=== PATIENT | male | born 1970 | race Caucasian/White ===

== ENCOUNTER 2016-11-07 14:27 | Emergency (ER) | payer OTHER ==
[2016-11-07] MEDS ORDERED: Meclizine TAB* 12.5 MG PO ONE ×2 (15:10→15:11)
--- NOTE | 2016-11-07 15:18 | ED ---
Amilcar Chirinos Alok, scribed for Padilla Palencia MD on 11/07/16 at 1515 . Dizziness - HPI Summary HPI Summary: 46 y/o male presents to the ED for dizziness. Pt states that he has been experiencing dizziness spells for the past few months, usually lasting minutes. Today at approximately 1245 pt states that dizziness began while carrying groceries and has been constant since. Dizziness is described as a lightheadedness with diaphoresis, room-spinning and nausea, and is aggravated by movement/exertion and alleviated by rest. Pt adds having mild ear pain and weakness in the lower extremities. Pt denies any sinus congestion, JUAREZ, or rhinorrhea. Pt's only prescribed medication are his depression medications which he has not been taking recently. No other pertinent medical information at this time. - History Of Current Complaint Chief Complaint: EDDizziness Stated Complaint: CHEST PAIN,DIZZINESS Time Seen by Provider: 11/07/16 14:48 Hx Obtained From: Patient Onset/Duration: Still Present Timing: Minutes Severity Initially: Moderate Severity Currently: Moderate Character: Room Spinning, Lightheaded, Weak, Dizzy Aggravating Factor(s): Exertion Alleviating Factor(s): Rest Associated Signs And Symptoms: Positive: Nausea, Diaphoresis. Negative: Fever - Allergies/Home Medications Allergies/Adverse Reactions: Allergies Allergy/AdvReac Type Severity Reaction Status Date / Time Fentanyl Allergy Mild Hives Verified 07/12/16 19:38 Hydrocodone Allergy Mild GI Upset Verified 07/12/16 19:38 Oxycodone Allergy Nausea Verified 07/12/16 19:38 Morphine AdvReac Severe seizures Verified 07/12/16 19:38 Levofloxacin [From Levaquin] AdvReac Intermediate Swelling Verified 07/12/16 19: 38 bleach Allergy Difficulty Uncoded 07/12/16 19:38 Breathing PMH/Surg Hx/FS Hx/Imm Hx Endocrine/Hematology History: Reports: Hx Diabetes - "BORDERLINE" Denies: Hx Systemic Lupus Erythematosus, Hx Thyroid Disease Cardiovascular History: Denies: Hx Congestive Heart Failure, Hx Hypertension Respiratory History: Reports: Hx Sleep Apnea - NO CPAP D/T GERD Denies: Hx Asthma, Hx Chronic Obstructive Pulmonary Disease (COPD) GI History: Reports: Hx Gastroesophageal Reflux Disease - ON MEDS Denies: Hx Ulcer History: Denies: Hx Dialysis, Hx Renal Disease Musculoskeletal History: Reports: Hx Arthritis - BILAT ANKLES Denies: Hx Rheumatoid Arthritis Sensory History: Denies: Hx Contacts or Glasses, Hx Hearing Aid Opthamlomology History: Denies: Hx Contacts or Glasses Neurological History: Reports: Other Neuro Impairments/Disorders - ADD,ADHD. PAIN CLINIC PT. Psychiatric History: Reports: Hx Anxiety - NO MEDS - Cancer History Hx Chemotherapy: No - Surgical History Surgery Procedure, Year, and Place: Left knee surgery 1999. RIGHT CARPAL TUNNEL 2005 [facility]. hernia repair-06/01/14 [facility] Hx Anesthesia Reactions: No - Immunization History Date of Tetanus Vaccine: 1 week ago in ED Infectious Disease History: Yes Infectious Disease History: Denies: Hx Clostridium Difficile, Hx Hepatitis, Hx Human Immunodeficiency Virus (HIV), Hx of Known/Suspected MRSA, Hx Shingles, Hx Tuberculosis, Hx Known/ Suspected VRE, Hx Known/Suspected VRSA, History Other Infectious Disease, Traveled Outside the in Last 30 Days - Family History Known Family History: Positive: Cardiac Disease, Hypertension, Diabetes - Social History Occupation: Employed Full-time Lives: With Family - Significant Other (Female) Alcohol Use: None Substance Use Type: Reports: None Smoking Status (MU): Never Smoked Tobacco Have You Smoked in the Last Year: No Review of Systems Positive: Skin Diaphoresis. Negative: Fever Positive: Ear Ache - Mild Positive: Nausea Neurological: Other - Dizziness Positive: Weakness. Negative: Headache All Other Systems Reviewed And Are Negative: Yes Physical Exam Triage Information Reviewed: Yes Vital Signs On Initial Exam: Initial Vitals Temp Pulse Resp BP Pulse Ox 98.2 F 72 18 145/99 96 11/07/16 14:29 11/07/16 14:29 11/07/16 14:29 11/07/16 14:29 11/07/16 14:29 Vital Signs Reviewed: Yes Appearance: Positive: Well-Appearing, No Pain Distress Skin: Positive: Warm, Skin Color Reflects Adequate Perfusion, Dry Head/Face: Positive: Normal Head/Face Inspection Eyes: Positive: EOMI, LOUIS ENT: Positive: Normal ENT inspection, TMs normal Neck: Positive: Supple, Nontender Respiratory/Lung Sounds: Positive: Clear to Auscultation, Breath Sounds Present Cardiovascular: Positive: RRR Abdomen Description: Positive: Nontender, Soft Bowel Sounds: Positive: Present Musculoskeletal: Positive: Normal, Strength/ROM Intact Neurological: Positive: Normal, Sensory/Motor Intact, Alert, Oriented to Person Place, Time Psychiatric: Positive: Normal, Affect/Mood Appropriate Diagnostics - Vital Signs Vital Signs Temp Pulse Resp BP Pulse Ox 11/07/16 14:29 98.2 F 72 18 145/99 96 - Laboratory Lab Statement: Any lab studies that have been ordered have been reviewed, and results considered in the medical decision making process. Dizzy Course/Dx - Course Assessment/Plan: DISCUSSED LAB WORK/CT BRAIN. PATIENT DECLINED LAB WORK/CT BRAIN. RX MECLIZINE. DISCHARGE HOME STABLE. - Diagnoses Provider Diagnoses: Vertigo Discharge - Discharge Plan Condition: Stable Disposition: HOME Prescriptions: Meclizine HCl [Meclizine 25] 25 mg PO Q6HR PRN #15 tab PRN Reason: Vertigo Patient Education Materials: Vertigo (ED) Referrals: Andrzej Mcarthur MD [Primary Care Provider] - Additional Instructions: FOLLOW UP WITH YOUR DOCTOR. MECLIZINE 25MG EVERY 6 HOURS NEEDED FOR THE VERTIGO. RETURN TO THE EMERGENCY DEPARTMENT FOR ANY WORSENING OF YOUR CONDITION; WEAKNESS , NUMBNESS, YOU FEEL ILL OR QUESTIONS OR CONCERNS. The documentation as recorded by the Amilcar parker Alok accurately reflects the service I personally performed and the decisions made by me, Padilla Palencia MD.
[2016-11-07 15:29] VITALS: BP 127/87
== END 2016-11-07 15:27 | disposition home or self-care (01) ==
LOC: ED 14:27
DX: H92.09 Otalgia, unspecified ear (principal); R42 Dizziness and giddiness; R11.0 Nausea; R61 Generalized hyperhidrosis
CPT/HCPCS: 99282; A9270-GY

== ENCOUNTER 2017-01-27 10:57 | Emergency (ER) | payer OTHER ==
[2017-01-27 11:04] VITALS: BP 136/80
--- NOTE | 2017-01-27 12:18 | UC ---
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 Has been a patient in the pain clinic in the past and does not want to take pills every day. Steroid injections did not help. For the last few days has sharper pain, much more severe than normal, with pain in anterior thighs and feet. Denies saddle anesthesia or difficulty with urination , having normal erections. Does have difficulty passing stool, says it feels like his muscles give out and he has very hard stools. Long hx of constipation. - History of Current Complaint Chief Complaint: UCBackPain Stated Complaint: BACK/LEG PAIN Time Seen by Provider: 01/27/17 11:45 Hx Obtained From: Patient Onset/Duration: Lasting Days Timing: Constant Severity Initially: Moderate Severity Currently: Moderate Back Pain: Is Diffuse Character: Sharp, Aching, Burning Aggravating: Movement, Bending, Walking Alleviating: Rest Associated Signs And Symptoms: Negative: Numbness, Tingling - Allergies/Home Medications Allergies/Adverse Reactions: Allergies Allergy/AdvReac Type Severity Reaction Status Date / Time Fentanyl Allergy Mild Hives Verified 07/12/16 19:38 Hydrocodone Allergy Mild GI Upset Verified 07/12/16 19:38 Oxycodone Allergy Nausea Verified 07/12/16 19:38 Morphine AdvReac Severe seizures Verified 07/12/16 19:38 Levofloxacin [From Levaquin] AdvReac Intermediate Swelling Verified 07/12/16 19: 38 bleach Allergy Difficulty Uncoded 07/12/16 19:38 Breathing PMH/Surg Hx/FS Hx/Imm Hx Previously Healthy: Yes - Surgical History Surgical History: Yes Surgery Procedure, Year, and Place: Left knee surgery 1999. RIGHT CARPAL TUNNEL 2006 [facility] [place]. [place]-06/01/14 [facility] [place] - Family History Known Family History: Positive: Cardiac Disease, Hypertension, Diabetes - Social History Occupation: Employed Full-time Lives: With Family Alcohol Use: None Substance Use Type: None Smoking Status (MU): Never Smoked Tobacco Have You Smoked in the Last Year: No Household Exposure Type: Cigarettes - Immunization History Most Recent Influenza Vaccination: no Review of Systems Constitutional: Negative Skin: Negative Eyes: Negative ENT: Negative Respiratory: Negative Cardiovascular: Negative Gastrointestinal: Negative Genitourinary: Negative Motor: Negative Neurovascular: Negative Musculoskeletal: Decreased ROM - back Neurological: Negative Psychological: Negative All Other Systems Reviewed And Are Negative: Yes Physical Exam Triage Information Reviewed: Yes Appearance: Pain Distress - mod, Obese Vital Signs: Initial Vital Signs Temp 98.5 F 01/27/17 11:03 Pulse 78 01/27/17 11:03 Resp 16 01/27/17 11:03 BP 136/80 01/27/17 11:03 Pulse Ox 98 01/27/17 11:03 Vital Signs Reviewed: Yes Eye Exam: Normal Eyes: Positive: Conjunctiva Clear ENT Exam: Normal ENT: Positive: Normal ENT inspection, Hearing grossly normal, Pharynx normal, TMs normal Dental: Positive: Gross Decay/Caries @ Neck exam: Normal Respiratory Exam: Normal Respiratory: Positive: Chest non-tender, Lungs clear, Normal breath sounds, No respiratory distress, No accessory muscle use Cardiovascular Exam: Normal Cardiovascular: Positive: RRR, No Murmur Musculoskeletal: Positive: Strength Limited @ - poor effort in legs Neurological Exam: Other - DTRs 2+ BLE Psychological Exam: Normal Skin Exam: Normal Back Pain Course/Dx - Differential Dx/Diagnosis Provider Diagnoses: Acute on chronic low back pain Discharge - Discharge Plan Condition: Stable Disposition: HOME Prescriptions: Cyclobenzaprine TAB* [Flexeril TAB*] 10 mg PO TID PRN #15 tab PRN Reason: Pain Naproxen Sodium [Naproxen Sodium 500 MG TAB] 500 mg PO BID #20 tab Polyethylene Glycol 3350 BTL* [Miralax] 17 gm PO BID #1 btl traMADol TAB* [Ultram*] 50 mg PO Q6HR PRN #15 tab MDD 4 PRN Reason: Pain Patient Education Materials: Lumbar Radiculopathy (ED) Forms: *Work Release Referrals: Andrzej Mcarthur MD [Primary Care Provider] - 5 Days Additional Instructions: Please see your primary care office next week. When you go to your appointment, make sure you tell them that I am not sending you back for pain pills, but more to do a repeat physical exam and to make sure that you are not showing signs of increasing weakness or trouble with bowel or bladder.
== END 2017-01-27 12:10 | disposition home or self-care (01) ==
LOC: UCEAST 10:57
DX: M54.5 Low back pain (principal); G89.29 Other chronic pain
CPT/HCPCS: 99212; G0463

== ENCOUNTER 2017-03-26 16:56 | Emergency (ER) | payer OTHER ==
--- NOTE | 2017-03-26 17:04 | UC ---
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 - History of Current Complaint Stated Complaint: LEG AND FOOT PAIN Time Seen by Provider: 03/26/17 17:03 - Allergies/Home Medications Allergies/Adverse Reactions: Allergies Allergy/AdvReac Type Severity Reaction Status Date / Time Fentanyl Allergy Mild Hives Verified 03/26/17 17:05 Hydrocodone Allergy Mild GI Upset Verified 03/26/17 17:05 Oxycodone Allergy Nausea Verified 03/26/17 17:05 Morphine AdvReac Severe seizures Verified 03/26/17 17:05 Levofloxacin [From Levaquin] AdvReac Intermediate Swelling Verified 03/26/17 17: 05 bleach Allergy Difficulty Uncoded 03/26/17 17:05 Breathing Home Medications: Home Medications NK [No Home Medications Reported] 03/26/17 [History Confirmed 03/26/17] PMH/Surg Hx/FS Hx/Imm Hx - Surgical History Surgical History: Yes Surgery Procedure, Year, and Place: Left knee surgery 1999. RIGHT CARPAL TUNNEL 2005 [facility] [place]. hernia repair-06/01/14 [facility] [place] - Family History Known Family History: Positive: Cardiac Disease, Hypertension, Diabetes - Social History Alcohol Use: None Substance Use Type: None Smoking Status (MU): Never Smoked Tobacco Have You Smoked in the Last Year: No Household Exposure Type: Cigarettes - Immunization History Most Recent Influenza Vaccination: no Review of Systems Constitutional: Negative Skin: Negative Eyes: Negative ENT: Negative Respiratory: Negative Cardiovascular: Negative Gastrointestinal: Negative Genitourinary: Negative Motor: Negative Neurovascular: Negative, Decreased Sensation Musculoskeletal: Calf Tenderness - LEFT CALF SWELLING Neurological: Negative Psychological: Negative All Other Systems Reviewed And Are Negative: Yes Physical Exam Triage Information Reviewed: Yes Eye Exam: Normal ENT Exam: Normal Dental Exam: Normal Neck exam: Normal Neck: Positive: 1 Respiratory Exam: Normal Cardiovascular Exam: Normal Abdominal Exam: Normal Musculoskeletal: Positive: Other: - LEFT CALF SWELLING/TENDERNESS Neurological Exam: Normal Psychological Exam: Normal Skin Exam: Normal Lower Extremity Course/Dx - Differential Dx/Diagnosis Provider Diagnoses: LEFT CALF SWELLING. LEFT CALF TENDERNESS Discharge - Discharge Plan Condition: Stable Disposition: AGAINST MEDICAL ADVICE Patient Education Materials: Deep Venous Thrombosis (ED), Leg Cramps (ED), Leg Edema (ED), Muscle Cramp (ED) Referrals: Andrzej Mcarthur MD [Primary Care Provider] -
[2017-03-26 17:05] VITALS: BP 146/81
== END 2017-03-26 17:25 | disposition left against medical advice (07) ==
LOC: UCEAST 16:56
DX: M79.89 Other specified soft tissue disorders (principal); M79.662 Pain in left lower leg; D68.2 Hereditary deficiency of other clotting factors
CPT/HCPCS: 99212; G0463

== ENCOUNTER 2017-03-26 17:54 | Emergency (ER) | payer OTHER ==
[2017-03-26 20:24] VITALS: BP 151/96
--- NOTE | 2017-03-26 21:23 | ED ---
Amilcar Chirinos Alok, scribed for Candelario Reza MD on 03/26/17 at 2119 . Lower Extremity - HPI Summary HPI Summary: 47M presents to the ED from [facility] for constant bilateral lower extremity pain for the last week. Pt states that he has been dealing with this pain on and off for the last few years and was last seen by his PCP for this issue one year ago. Pt states that the pain is at his feet bilaterally and radiates through his legs. PMHx includes arthritis in both feet. Pt denies h/o DM. - History of Current Complaint Chief Complaint: EDExtremityLower Stated Complaint: FEET/LEG PAIN-SENT FROM [facility] Time Seen by Provider: 03/26/17 21:03 Hx Obtained From: Patient Mechanism Of Injury: Unknown Onset/Duration: Worse Since - last week Severity Initially: Moderate Severity Currently: Moderate Pain Intensity: 10 Pain Scale Used: 0-10 Numeric Timing: Constant Location: Is Discrete @ - feet and legs bilateral Alleviating Factor(s): Nothing - Allergies/Home Medications Allergies/Adverse Reactions: Allergies Allergy/AdvReac Type Severity Reaction Status Date / Time Fentanyl Allergy Mild Hives Verified 03/26/17 17:05 Hydrocodone Allergy Mild GI Upset Verified 03/26/17 17:05 Oxycodone Allergy Nausea Verified 03/26/17 17:05 Morphine AdvReac Severe seizures Verified 03/26/17 17:05 Levofloxacin [From Levaquin] AdvReac Intermediate Swelling Verified 03/26/17 17: 05 bleach Allergy Difficulty Uncoded 03/26/17 17:05 Breathing PMH/Surg Hx/FS Hx/Imm Hx Endocrine/Hematology History: Reports: Hx Diabetes - "BORDERLINE" Denies: Hx Systemic Lupus Erythematosus, Hx Thyroid Disease Cardiovascular History: Denies: Hx Congestive Heart Failure, Hx Hypertension Respiratory History: Reports: Hx Sleep Apnea - NO CPAP D/T GERD Denies: Hx Asthma, Hx Chronic Obstructive Pulmonary Disease (COPD) GI History: Reports: Hx Gastroesophageal Reflux Disease - ON MEDS Denies: Hx Ulcer History: Denies: Hx Dialysis, Hx Renal Disease Musculoskeletal History: Reports: Hx Arthritis - BILAT ANKLES Denies: Hx Rheumatoid Arthritis Sensory History: Denies: Hx Contacts or Glasses, Hx Hearing Aid Opthamlomology History: Denies: Hx Contacts or Glasses Neurological History: Reports: Other Neuro Impairments/Disorders - ADD,ADHD. PAIN CLINIC PT. Psychiatric History: Reports: Hx Anxiety - NO MEDS - Cancer History Hx Chemotherapy: No - Surgical History Surgery Procedure, Year, and Place: Left knee surgery 1999. RIGHT CARPAL TUNNEL 2006 [facility] [place]. hernia repair-06/01/14 [facility] [place] Hx Anesthesia Reactions: No - Immunization History Date of Tetanus Vaccine: 1 week ago in ED Infectious Disease History: No Infectious Disease History: Denies: Hx Clostridium Difficile, Hx Hepatitis, Hx Human Immunodeficiency Virus (HIV), Hx of Known/Suspected MRSA, Hx Shingles, Hx Tuberculosis, Hx Known/ Suspected VRE, Hx Known/Suspected VRSA, History Other Infectious Disease, Traveled Outside the [place] in Last 30 Days - Family History Known Family History: Positive: Cardiac Disease, Hypertension, Diabetes - Social History Occupation: Employed Full-time Lives: With Family Alcohol Use: None Substance Use Type: Reports: None Smoking Status (MU): Never Smoked Tobacco Have You Smoked in the Last Year: No Review of Systems Negative: Fever Positive: Other - leg/feet pain bilateral All Other Systems Reviewed And Are Negative: Yes Physical Exam Triage Information Reviewed: Yes Vital Signs On Initial Exam: Initial Vitals Temp Pulse Resp BP Pulse Ox 98.3 F 80 16 136/110 96 03/26/17 18:12 03/26/17 18:12 03/26/17 18:12 03/26/17 18:12 03/26/17 18:12 Vital Signs Reviewed: Yes Appearance: Positive: Well-Appearing, No Pain Distress Skin: Positive: Warm Head/Face: Positive: Normal Head/Face Inspection Eyes: Positive: LOUIS ENT: Positive: Hearing grossly normal Neck: Positive: Supple Respiratory/Lung Sounds: Positive: Breath Sounds Present Cardiovascular: Positive: RRR Abdomen Description: Positive: Soft Musculoskeletal: Positive: Strength/ROM Intact Neurological: Positive: Sensory/Motor Intact, Normal Gait Psychiatric: Positive: Normal Diagnostics - Vital Signs Vital Signs Temp Pulse Resp BP Pulse Ox 03/26/17 20:20 97.9 F 80 22 151/96 97 03/26/17 18:12 98.3 F 80 16 136/110 96 - Laboratory Lab Statement: Any lab studies that have been ordered have been reviewed, and results considered in the medical decision making process. Re-Evaluation - Re-Evaluation First Eval Comment: pt left ed prior to completion of evaluation Lower Extremity Course/Dx - Diagnoses Provider Diagnoses: Peripheral neuropathy Discharge - Discharge Plan Condition: Stable Disposition: AGAINST MEDICAL ADVICE Referrals: Andrzej Mcarthur MD [Primary Care Provider] - The documentation as recorded by the Amilcar parker Alok accurately reflects the service I personally performed and the decisions made by me, Candelario Reza MD.
== END 2017-03-26 21:25 | disposition left against medical advice (07) ==
LOC: ED 17:54
DX: G62.9 Polyneuropathy, unspecified (principal); R73.03 Prediabetes; Z88.5 Allergy status to narcotic agent; K21.9 Gastro-esophageal reflux disease without esophagitis; F90.9 Attention-deficit hyperactivity disorder, unspecified type; M19.072 Primary osteoarthritis, left ankle and foot; M19.071 Primary osteoarthritis, right ankle and foot
CPT/HCPCS: 99282

== ENCOUNTER 2017-04-30 20:46 | Emergency (ER) | payer SELFPAY ==
[2017-04-30] MEDS ORDERED: NS 0.9% 1000 ML* 1,000 ML IV ONE (21:20)
--- NOTE | 2017-04-30 21:47 | ED ---
Glenna Chirinos Rebecca, scribed for Candelario Reza MD on 04/30/17 at 2124 . GI/ HPI - HPI Summary HPI Summary: Pt is a 47 y/o M who present to ED c/o 1 episode of rectal bleeding. Pt reports that he typically has a slight amount of blood with BM, but tonight at approximately 2000 there was blood in a higher volume than typical. States there was only one episode. Sx aggravated and alleviated by nothing. Additionally c/o dizziness. Denies N/V. Has been seen by his PCP, Dr. Andrzej Mcarthur, for these symptoms which found no cause, per pt. Was last seen a few months ago and has never had a colonoscopy. - History of Current Complaint Chief Complaint: EDBleedingDisorder Time Seen by Provider: 04/30/17 21:15 Stated Complaint: RECTAL BLEEDING Hx Obtained From: Patient Onset/Duration: Started Hours Ago - 1 hour [employer] Timing: Intermittent - 1 episode Current Severity: None Pain Intensity: 0 Location of Pain: None Associated Signs and Symptoms: Positive: Other: - Rectal bleeding Aggravating Factor(s): Nothing Alleviating Factor(s): Nothing - Allergy/Home Medications Allergies/Adverse Reactions: Allergies Allergy/AdvReac Type Severity Reaction Status Date / Time Fentanyl Allergy Mild Hives Verified 04/30/17 20:53 Hydrocodone Allergy Mild GI Upset Verified 04/30/17 20:53 Oxycodone Allergy Nausea Verified 04/30/17 20:53 Morphine AdvReac Severe seizures Verified 04/30/17 20:53 Levofloxacin [From Levaquin] AdvReac Intermediate Swelling Verified 04/30/17 20: 53 bleach Allergy Difficulty Uncoded 04/30/17 20:53 Breathing PMH/Surg Hx/FS Hx/Imm Hx Endocrine/Hematology History: Reports: Hx Diabetes - "BORDERLINE" Denies: Hx Systemic Lupus Erythematosus, Hx Thyroid Disease Cardiovascular History: Denies: Hx Congestive Heart Failure, Hx Hypertension Respiratory History: Reports: Hx Sleep Apnea - NO CPAP D/T GERD Denies: Hx Asthma, Hx Chronic Obstructive Pulmonary Disease (COPD) GI History: Reports: Hx Gastroesophageal Reflux Disease - ON MEDS Denies: Hx Ulcer History: Denies: Hx Dialysis, Hx Renal Disease Musculoskeletal History: Reports: Hx Arthritis - BILAT ANKLES Denies: Hx Rheumatoid Arthritis Sensory History: Denies: Hx Contacts or Glasses, Hx Hearing Aid Opthamlomology History: Denies: Hx Contacts or Glasses Neurological History: Reports: Other Neuro Impairments/Disorders - ADD,ADHD. PAIN CLINIC PT. Psychiatric History: Reports: Hx Anxiety - NO MEDS - Cancer History Hx Chemotherapy: No - Surgical History Surgery Procedure, Year, and Place: Left knee surgery 1999. RIGHT CARPAL TUNNEL 2006 [facility] [place]. hernia repair-06/01/14 [facility] [place] Hx Anesthesia Reactions: No - Immunization History Date of Tetanus Vaccine: 1 week ago in ED Infectious Disease History: No Infectious Disease History: Denies: Hx Clostridium Difficile, Hx Hepatitis, Hx Human Immunodeficiency Virus (HIV), Hx of Known/Suspected MRSA, Hx Shingles, Hx Tuberculosis, Hx Known/ Suspected VRE, Hx Known/Suspected VRSA, History Other Infectious Disease, Traveled Outside the [place] in Last 30 Days - Family History Known Family History: Positive: Cardiac Disease, Hypertension, Diabetes - Social History Alcohol Use: None Substance Use Type: Reports: None Smoking Status (MU): Never Smoked Tobacco Have You Smoked in the Last Year: No Review of Systems Negative: Vomiting, Nausea Positive: other - Rectal bleeding Neurological: Other - Dizziness All Other Systems Reviewed And Are Negative: Yes Physical Exam Triage Information Reviewed: Yes Vital Signs On Initial Exam: Initial Vitals Temp Pulse Resp BP Pulse Ox 97.6 F 79 16 148/84 98 04/30/17 20:55 04/30/17 20:55 04/30/17 20:55 04/30/17 20:55 04/30/17 20:55 Vital Signs Reviewed: Yes Appearance: Positive: Well-Appearing, No Pain Distress Skin: Positive: Warm Head/Face: Positive: Normal Head/Face Inspection Eyes: Positive: LOUIS ENT: Positive: Hearing grossly normal Neck: Positive: Supple Respiratory/Lung Sounds: Positive: Breath Sounds Present Cardiovascular: Positive: RRR Abdomen Description: Positive: Nontender, No Organomegaly, Soft Bowel Sounds: Positive: Present Musculoskeletal: Positive: Strength/ROM Intact Neurological: Positive: Alert, Oriented to Person Place, Time Psychiatric: Positive: Affect/Mood Appropriate Diagnostics - Vital Signs Vital Signs Temp Pulse Resp BP Pulse Ox 04/30/17 20:55 97.6 F 79 16 148/84 98 - Laboratory Result Diagrams: 04/30/17 21:55 04/30/17 22:52 Lab Statement: Any lab studies that have been ordered have been reviewed, and results considered in the medical decision making process. Re-Evaluation - Re-Evaluation First Eval Re-Evaluation Time: 23:06 Change: Improved Comment: Discussed results and D/C plan. GIGU Course/Dx - Course Assessment/Plan: Pt is a 47 y/o M who present to ED c/o 1 episode of rectal bleeding. Pt reports that he typically has a slight amount of blood with BM, but tonight at approximately 2000 there was blood in a higher volume than typical. States there was only one episode. Sx aggravated and alleviated by nothing. Additionally c/o dizziness. Denies N/V. Has been seen by his PCP, Dr. Andrzej Mcarthur, for these symptoms which found no cause, per pt. Was last seen a few months ago and has never had a colonoscopy. Blood work was done. In the ED course, pt received fluids. Pt will be D/C to home with Dx of rectal bleeding and a follow up with Dr. Frederick (GI). He understands and agrees. Elevated BP noted and advised to f/u. - Diagnoses Provider Diagnoses: Rectal bleed Discharge - Discharge Plan Condition: Stable Disposition: HOME Patient Education Materials: Rectal Bleeding (ED) Referrals: Froilan Frederick MD [Medical Doctor] - 3 Days The documentation as recorded by the Glenna parker Rebecca accurately reflects the service I personally performed and the decisions made by me, Candelario Reza MD.
[2017-04-30 22:18] LABS: Hematocrit 42 % (42-52); Hemoglobin 14.5 g/dl (14.0-18.0); Mean Corpuscular HGB Conc 35 g/dl (31-36); Mean Corpuscular Hemoglobin 30 pg (27-31); Mean Corpuscular Volume 87 fL (80-94); Mean Platelet Volume 10 um3 (7.4-10.4); Red Blood Count 4.85 10^6/ul (4.0-5.4); Red Cell Distribution Width 14 % (10.5-15); White Blood Count 9.2 10^3/ul (3.5-10.8)
[2017-04-30 22:30] LABS: ALT 15 U/L (7-52); Alkaline Phosphatase 50 U/L (34-104); BUN/Creatinine Ratio 22.7 (8-20); Blood Urea Nitrogen 17 mg/dL (6-24); C Reactive Protein 4.02 mg/L (< 5.00); CO2 Carbon Dioxide 24 mmol/L (22-32); Calcium 8.8 mg/dL (8.6-10.3); Chloride 105 mmol/L (101-111); EGFR African American 143.6 (>60); EGFR Non-African American 111.6 (>60); Globulin 2.6 g/dL (2-4); Glucose 144 mg/dL (70-100); Lipase 21 U/L (11.0-82.0); Sodium 137 mmol/L (133-145); Total Protein 6.6 g/dL (6.4-8.9)
[2017-04-30 22:45] LABS: Anion Gap 8 mmol/L (2-11)
[2017-05-01 00:03] VITALS: BP 139/99
== END 2017-04-30 23:25 | disposition home or self-care (01) ==
LOC: ED 20:46
DX: K62.5 Hemorrhage of anus and rectum (principal)
CPT/HCPCS: 36415; 80053; 83605; 83690; 85025; 86140; 99283

== ENCOUNTER 2017-05-22 20:14 | Emergency (ER) | payer SELFPAY ==
[2017-05-23] MEDS ORDERED: Tetracaine 0.5% OPTH.SOL 4 ML* 1 DROP BTL BOTH EYES ONE (01:04)
[2017-05-23] MEDS ORDERED: Tetracaine 0.5% OPTH.SOL 4 ML* 1 DROP BTL ONE (01:05)
[2017-05-23] MEDS ORDERED: Polymyx/Trimethoprim OPTH* 10 ML BTL BOTH EYES ONE (01:18)
--- NOTE | 2017-05-23 01:20 | ED ---
Throat Pain/Nasal Congestion - HPI Summary HPI Summary: 47M presents with bilateral eye pain for today. Has had sinus pressure for 3 days. has history of sinus infections. denies any fever. denies any foreign body into eye but has foreign body sensation. admits to tearing no pus from eyes. no change in vision. admits to some photophobia. denies any one else with similar symptoms. he states that he has a lot of pressure behind his eye from his sinuses. He states eyes feel itchy. has family history of glaucoma and was told was at high risk. He denies any cough or fever. - History of Current Complaint Chief Complaint: EDEyeProblem Time Seen by Provider: 05/23/17 00:48 - Allergies/Home Medications Allergies/Adverse Reactions: Allergies Allergy/AdvReac Type Severity Reaction Status Date / Time Fentanyl Allergy Mild Hives Verified 05/22/17 20:39 Hydrocodone Allergy Mild GI Upset Verified 05/22/17 20:39 Oxycodone Allergy Nausea Verified 05/22/17 20:39 Morphine AdvReac Severe seizures Verified 05/22/17 20:39 Levofloxacin [From Levaquin] AdvReac Intermediate Swelling Verified 05/22/17 20: 39 bleach Allergy Difficulty Uncoded 05/22/17 20:39 Breathing PMH/Surg Hx/FS Hx/Imm Hx Endocrine/Hematology History: Reports: Hx Diabetes - "BORDERLINE" Denies: Hx Systemic Lupus Erythematosus, Hx Thyroid Disease Cardiovascular History: Denies: Hx Congestive Heart Failure, Hx Hypertension Respiratory History: Reports: Hx Sleep Apnea - NO CPAP D/T GERD Denies: Hx Asthma, Hx Chronic Obstructive Pulmonary Disease (COPD) GI History: Reports: Hx Gastroesophageal Reflux Disease - ON MEDS Denies: Hx Ulcer History: Denies: Hx Dialysis, Hx Renal Disease Musculoskeletal History: Reports: Hx Arthritis - BILAT ANKLES Denies: Hx Rheumatoid Arthritis Sensory History: Denies: Hx Contacts or Glasses, Hx Hearing Aid Opthamlomology History: Denies: Hx Contacts or Glasses Neurological History: Reports: Other Neuro Impairments/Disorders - ADD,ADHD. PAIN CLINIC PT. Psychiatric History: Reports: Hx Anxiety - NO MEDS - Cancer History Hx Chemotherapy: No - Surgical History Surgery Procedure, Year, and Place: Left knee surgery 1999. RIGHT CARPAL [place] 2005 [facility] [place]-06/01/14 [facility] [place]x Anesthesia Reactions: No - Immunization History Date of Tetanus Vaccine: 1 week ago in ED Infectious Disease History: No Infectious Disease History: Denies: Hx Clostridium Difficile, Hx Hepatitis, Hx Human Immunodeficiency Virus (HIV), Hx of Known/Suspected MRSA, Hx Shingles, Hx Tuberculosis, Hx Known/ Suspected VRE, Hx Known/Suspected VRSA, History Other Infectious Disease, Traveled Outside the [place] in Last 30 Days - Family History Known Family History: Positive: Cardiac Disease, Hypertension, Diabetes - Social History Alcohol Use: None Substance Use Type: Reports: None Smoking Status (MU): Never Smoked Tobacco Have You Smoked in the Last Year: No Review of Systems Positive: Drainage, Erythema. Negative: Diplopia Positive: Nasal Discharge Negative: Chest Pain Negative: Shortness Of Breath All Other Systems Reviewed And Are Negative: Yes Physical Exam Triage Information Reviewed: Yes Vital Signs On Initial Exam: Initial Vitals Temp Pulse Resp BP Pulse Ox 97.7 F 88 20 139/94 97 05/22/17 20:35 05/22/17 20:35 05/22/17 20:35 05/22/17 20:35 05/22/17 20:35 Vital Signs Reviewed: Yes Appearance: Positive: Well-Appearing Skin: Positive: Warm, Dry Head/Face: Positive: Normal Head/Face Inspection Eyes: Positive: Normal, EOMI, LOUIS, Conjunctiva Inflammed, Other: - tonopen, 15 left eye, 12 right eye ENT: Positive: Normal ENT inspection, Pharynx normal, Nasal congestion, Nasal drainage, TMs normal, Other - sinus tenderness Respiratory/Lung Sounds: Positive: Clear to Auscultation, Breath Sounds Present Cardiovascular: Positive: Normal, RRR Diagnostics - Vital Signs Vital Signs Temp Pulse Resp BP Pulse Ox 05/22/17 22:37 97.8 F 89 20 140/81 97 05/22/17 20:35 97.7 F 88 20 139/94 97 - Laboratory Lab Statement: Any lab studies that have been ordered have been reviewed, and results considered in the medical decision making process. EENT Course/Dx - Course Course Of Treatment: 47M presents with bilateral eye pain for today. Has had sinus pressure for 3 days. has history of sinus infections. denies any fever. denies any foreign body into eye but has foreign body sensation. admits to tearing no pus from eyes. no change in vision. admits to some photophobia. denies any one else with similar symptoms. he states that he has a lot of pressure behind his eye from his sinuses. He states eyes feel itchy. has family history of glaucoma and was told was at high risk. on exam injected conjunctiva. sinus tenderness. tonopen normal pressure both eyes. discussed with dr montes likely viral. will place on antibiotics to prevent secondary infection. patient understands and agrees with plan. - Differential Diagnoses Differential Diagnoses: Conjunctivitis, Glaucoma, Keratitis, Sinusitis - Diagnoses Provider Diagnoses: Eye pain Discharge - Discharge Plan Condition: Good Disposition: HOME Patient Education Materials: Conjunctivitis (ED) Forms: *Work Release Referrals: Andrzej Mcarthur MD [Primary Care Provider] - Additional Instructions: Conjunctivitis is likely viral but will treat with antibiotic to prevent secondary infection Place 1 drop in eye four times a day for 5 days Wash hands after touching eye Restart flonase Follow up with ophthalmology if no improvement Return to ED if develop any new or worsening symptoms
[2017-05-23 01:59] VITALS: BP 127/92
== END 2017-05-23 01:59 | disposition home or self-care (01) ==
LOC: ED 20:14
DX: H57.13 Ocular pain, bilateral (principal); Z88.5 Allergy status to narcotic agent; R73.03 Prediabetes; K21.9 Gastro-esophageal reflux disease without esophagitis
CPT/HCPCS: 99282; A9270-GY

== ENCOUNTER 2017-07-28 13:56 | Emergency (ER) | payer SELFPAY ==
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
[2017-07-28 16:33] VITALS: BP 148/94
--- NOTE | 2017-07-28 17:17 | RAD ---
INDICATION: Left shoulder pain COMPARISON: None. TECHNIQUE: 5 views of the left shoulder were obtained. FINDINGS: The adequately corticated bones are in normal alignment. Joint spaces appear maintained. No fracture, dislocation or focal bony abnormality is seen. IMPRESSION: Normal radiograph of the left shoulder. If the patient's symptoms persist, follow-up imaging is recommended.
== END 2017-07-28 17:11 | disposition home or self-care (01) ==
LOC: UCEAST 13:56
DX: M75.02 Adhesive capsulitis of left shoulder (principal); J06.9 Acute upper respiratory infection, unspecified
CPT/HCPCS: 99211; G0463

== ENCOUNTER 2017-07-30 03:05 | Emergency (ER) | payer SELFPAY ==
[2017-07-30 03:53] LABS: Hematocrit 43 % (42-52); Hemoglobin 14.4 g/dl (14.0-18.0); Mean Corpuscular HGB Conc 33 g/dl (31-36); Mean Corpuscular Hemoglobin 29 pg (27-31); Mean Corpuscular Volume 88 fL (80-94); Mean Platelet Volume 10 um3 (7.4-10.4); Red Blood Count 4.96 10^6/ul (4.0-5.4); Red Cell Distribution Width 14 % (10.5-15); White Blood Count 12.2 10^3/ul (3.5-10.8)
[2017-07-30] MEDS ORDERED: Morphine INJ* 4 MG/ML 1 ML CARPUJECT IV ONE (04:04)
[2017-07-30] MEDS ORDERED: NS 0.9% 1000 ML* 1,000 ML IV ONE (04:05)
[2017-07-30] MEDS ORDERED: Ketorolac INJ* 30 MG/ML 1 ML VIAL IV PUSH ONE (04:08)
[2017-07-30 04:09] LABS: Albumin 4.2 g/dL (3.2-5.2); BUN/Creatinine Ratio 17.9 (8-20); Calcium 8.9 mg/dL (8.6-10.3); EGFR African American 137.2 (>60); EGFR Non-African American 106.7 (>60); Globulin 2.7 g/dL (2-4); Magnesium 1.9 mg/dL (1.9-2.7); Potassium 3.6 mmol/L (3.5-5.0); Total Bilirubin 0.4 mg/dL (0.2-1.0); Total Protein 6.9 g/dL (6.4-8.9)
[2017-07-30] MEDS ORDERED: Ondansetron INJ* 2 MG/ML VIAL ONE (04:15)
[2017-07-30] MEDS ORDERED: Ondansetron INJ* 2 MG/ML VIAL IV ONE (04:19)
[2017-07-30] MEDS ORDERED: Ketorolac INJ* 30 MG/ML 1 ML VIAL ONE (04:19)
[2017-07-30] MEDS ORDERED: Iodixanol* (CONTRAST) 320 MG/ML 100 ML SDV IV ONE (05:11)
[2017-07-30 05:39] LABS: Urine Bacteria Absent (Absent); Urine Bilirubin Negative (Negative); Urine Glucose Negative (Negative); Urine Nitrite Negative (Negative)
[2017-07-30] MEDS ORDERED: metroNIDAZOLE TAB* 250 MG PO ONE (05:52)
[2017-07-30] MEDS ORDERED: Ciprofloxacin TAB* 500 MG PO ONE (05:52)
[2017-07-30 06:03] VITALS: BP 132/79
--- NOTE | 2017-07-30 07:55 | RAD ---
CLINICAL HISTORY: Mid abdominal pain and diarrhea COMPARISON: Most recent comparison CT examination is dated May 02, 2016 TECHNIQUE: Contrast enhanced CT examination of the abdomen and pelvis from the lung bases through the initial tuberosities. The patient received 141 mL Visipaque 320 intravenously prior to imaging.The patient received oral contrast as well prior to imaging. FINDINGS: VISUALIZED LUNG BASES: The visualized lung bases are grossly clear. There is no pleural effusion. ABDOMEN AND PELVIS: The liver is homogenously hypoattenuating relative to the spleen. There are no focal suspicious liver lesions. The spleen, pancreas and adrenal glands are grossly normal in appearance. The gallbladder is normal. The kidneys are normal in appearance without focal mass, calcification or signs of hydronephrosis. The small and large bowel are not distended. The patient's normal appendix is identified in the right lower quadrant measuring just under 8 mm in diameter (coronal image 60 and axial image 55). There is no pathologic small bowel wall thickening. There are air-fluid levels in the transverse colon. More distally in the rectosigmoid colon there is liquid stool. There is no retroperitoneal lymphadenopathy. Scattered mesenteric lymph nodes are seen, best in the coronal plane (for example image 50 and 52) but none are definitely pathologically enlarged. The pelvic viscera is normal in appearance. The abdominal aorta and iliac arteries are normal in course and diameter. Degenerative changes include multilevel loss of intervertebral disc height involving the lower thoracic and lumbar spine.There are no sinister bone lesions. IMPRESSION: 1. Liquid stool in the colon and multiple non-pathologically enlarged mesenteric lymph nodes could be seen in the setting of diarrheal illness. 2. Homogenously hypoattenuating liver could be seen in the setting of hepatic steatosis. 3. Additional chronic and degenerative changes noted.
--- NOTE | 2017-07-31 09:19 | ED ---
Mc Chirinos Nikita, scribed for Temo Loredo MD on 07/30/17 at 0326 . Abdominal Pain/Male - HPI Summary HPI Summary: This patient is a 47 year old M presenting to ED with a chief complaint of mid abdominal pain since a few hours ago. The CC is described as intermittent and feeling like its being cut open. The patient rates the pain 9/10 in severity. Symptoms aggravated by nothing. Symptoms alleviated by nothing ( diarrhea doesnt relieve pain). Patient reports diarrhea (watery, 2x last week and since 1300 yesterday) and vomiting. Patient denies difficulty urinating, testicular pain, testicular masses, CP, and SOB. Pt has had an umbilical hernia. - History of Current Complaint Chief Complaint: EDAbdPain Stated Complaint: ABD PAIN Hx Obtained From: Patient Onset/Duration: Sudden Onset, Lasting Days, Still Present Timing: Intermittent Severity Initially: Severe Severity Currently: Severe Pain Intensity: 9 Pain Scale Used: 0-10 Numeric Location: Other - mid abdominal pain Aggravating Factor(s): Nothing Alleviating Factor(s): Nothing - diarrhea doesnt relieve pain Associated Signs And Symptoms: Positive: Other - Patient reports diarrhea ( watery, 2x last week and since 1300 yesterday) and vomiting. Patient denies difficulty urinating, testicular pain, testicular masses, CP, and SOB. - Allergies/Home Medications Allergies/Adverse Reactions: Allergies Allergy/AdvReac Type Severity Reaction Status Date / Time Fentanyl Allergy Mild Hives Verified 07/28/17 14:06 Hydrocodone Allergy Mild GI Upset Verified 07/28/17 14:06 Oxycodone Allergy Nausea Verified 07/28/17 14:06 Morphine AdvReac Severe seizures Verified 07/28/17 14:06 Levofloxacin [From Levaquin] AdvReac Intermediate Swelling Verified 07/28/17 14: 06 bleach Allergy Difficulty Uncoded 07/28/17 14:06 Breathing PMH/Surg Hx/FS Hx/Imm Hx Endocrine/Hematology History: Reports: Hx Diabetes - "BORDERLINE" Denies: Hx Systemic Lupus Erythematosus, Hx Thyroid Disease Cardiovascular History: Denies: Hx Congestive Heart Failure, Hx Hypertension Respiratory History: Reports: Hx Sleep Apnea - NO CPAP D/T GERD Denies: Hx Asthma, Hx Chronic Obstructive Pulmonary Disease (COPD) GI History: Reports: Hx Gastroesophageal Reflux Disease - ON MEDS Denies: Hx Ulcer History: Denies: Hx Dialysis, Hx Renal Disease Musculoskeletal History: Reports: Hx Arthritis - BILAT ANKLES Denies: Hx Rheumatoid Arthritis Sensory History: Denies: Hx Contacts or Glasses, Hx Hearing Aid Opthamlomology History: Denies: Hx Contacts or Glasses Neurological History: Reports: Other Neuro Impairments/Disorders - ADD,ADHD. PAIN CLINIC PT. Psychiatric History: Reports: Hx Anxiety - NO MEDS - Cancer History Hx Chemotherapy: No - Surgical History Surgery Procedure, Year, and Place: Left knee surgery 1999. RIGHT CARPAL TUNNEL 2005 [facility] [place]. hernia repair-06/01/14 [facility] [place] Hx Anesthesia Reactions: No - Immunization History Date of Tetanus Vaccine: 1 week ago in ED Infectious Disease History: No Infectious Disease History: Denies: Hx Clostridium Difficile, Hx Hepatitis, Hx Human Immunodeficiency Virus (HIV), Hx of Known/Suspected MRSA, Hx Shingles, Hx Tuberculosis, Hx Known/ Suspected VRE, Hx Known/Suspected VRSA, History Other Infectious Disease, Traveled Outside the [place] in Last 30 Days - Family History Known Family History: Positive: Cardiac Disease, Hypertension, Diabetes - Social History Alcohol Use: None Substance Use Type: Reports: None Smoking Status (MU): Never Smoked Tobacco Have You Smoked in the Last Year: No Review of Systems Negative: Chest Pain Negative: Shortness Of Breath Positive: Abdominal Pain - mid , Vomiting, Diarrhea Positive: other - denies difficulty urinating, testicular pain, testicular masses All Other Systems Reviewed And Are Negative: Yes Physical Exam Triage Information Reviewed: Yes Vital Signs On Initial Exam: Initial Vitals Temp Pulse Resp BP Pulse Ox 96.5 F 84 20 154/80 96 07/30/17 03:09 07/30/17 03:09 07/30/17 03:09 07/30/17 03:09 07/30/17 03:09 Vital Signs Reviewed: Yes Appearance: Positive: Well-Appearing, Well-Nourished Skin: Positive: Warm, Other - no rash. Negative: Jaundiced Head/Face: Positive: Normal Head/Face Inspection Eyes: Positive: Normal, Other: - No scleral icterus ENT: Positive: Normal ENT inspection, Other - moist mucous membranes Neck: Positive: Supple, Nontender Respiratory/Lung Sounds: Positive: Clear to Auscultation Cardiovascular: Positive: Normal, Other - good distal pulses Abdomen Description: Positive: No Organomegaly, Soft, Other: - Minimal tenderness diffusely without rebound and guarding Bowel Sounds: Positive: Present Musculoskeletal: Positive: Normal, Strength/ROM Intact Neurological: Positive: Normal, Alert, Oriented to Person Place, Time Diagnostics - Vital Signs Vital Signs Temp Pulse Resp BP Pulse Ox 07/30/17 03:09 96.5 F 84 20 154/80 96 - Laboratory Lab Results: Lab Results 07/30/17 07/30/17 07/30/17 Range/Units 03:35 03:35 03:35 WBC 12.2 H (3.5-10.8) 10^3/ul RBC 4.96 (4.0-5.4) 10^6/ul Hgb 14.4 (14.0-18.0) g/dl Hct 43 (42-52) % MCV 88 (80-94) fL MCH 29 (27-31) pg MCHC 33 (31-36) g/dl RDW 14 (10.5-15) % Plt Count 224 (150-450) 10^3/ul MPV 10 (7.4-10.4) um3 Neut % (Auto) 74.8 (38-83) % Lymph % (Auto) 16.1 L (25-47) % Upson % (Auto) 7.5 (1-9) % Eos % (Auto) 1.0 (0-6) % Baso % (Auto) 0.6 (0-2) % Absolute Neuts (auto) 9.1 H (1.5-7.7) 10^3/ul Absolute Lymphs (auto) 2.0 (1.0-4.8) 10^3/ul Absolute Monos (auto) 0.9 H (0-0.8) 10^3/ul Absolute Eos (auto) 0.1 (0-0.6) 10^3/ul Absolute Basos (auto) 0.1 (0-0.2) 10^3/ul Absolute Nucleated RBC 0 10^3/ul Nucleated RBC % 0 INR (Anticoag Therapy) (0.77-1.02) APTT (26.0-36.3) seconds Sodium 137 (133-145) mmol/L Potassium 3.6 (3.5-5.0) mmol/L Chloride 106 (101-111) mmol/L Carbon Dioxide 23 (22-32) mmol/L Anion Gap 8 (2-11) mmol/L BUN 14 (6-24) mg/dL Creatinine 0.78 (0.67-1.17) mg/dL Est GFR ( Amer) 137.2 (>60) Est GFR (Non-Af Amer) 106.7 (>60) BUN/Creatinine Ratio 17.9 (8-20) Glucose 144 H (70-100) mg/dL Lactic Acid 1.9 (0.5-2.0) mmol/L Calcium 8.9 (8.6-10.3) mg/dL Magnesium 1.9 (1.9-2.7) mg/dL Total Bilirubin 0.40 (0.2-1.0) mg/dL AST 15 (13-39) U/L ALT 20 (7-52) U/L Alkaline Phosphatase 47 (34-104) U/L Troponin I 0.00 (<0.04) ng/mL Total Protein 6.9 (6.4-8.9) g/dL Albumin 4.2 (3.2-5.2) g/dL Globulin 2.7 (2-4) g/dL Albumin/Globulin Ratio 1.6 (1-3) Lipase 16 (11.0-82.0) U/L Urine Color Urine Appearance Urine pH (5-9) Ur Specific Grant (1.010-1.030) Urine Protein (Negative) Urine Ketones (Negative) Urine Blood (Negative) Urine Nitrate (Negative) Urine Bilirubin (Negative) Urine Urobilinogen (Negative) Ur Leukocyte Esterase (Negative) Urine WBC (Auto) (Absent) Urine RBC (Auto) (Absent) Urine Bacteria (Absent) Urine Glucose (Negative) 07/30/17 07/30/17 Range/Units 03:35 05:00 WBC (3.5-10.8) 10^3/ul RBC (4.0-5.4) 10^6/ul Hgb (14.0-18.0) g/dl Hct (42-52) % MCV (80-94) fL MCH (27-31) pg MCHC (31-36) g/dl RDW (10.5-15) % Plt Count (150-450) 10^3/ul MPV (7.4-10.4) um3 Neut % (Auto) (38-83) % Lymph % (Auto) (25-47) % Upson % (Auto) (1-9) % Eos % (Auto) (0-6) % Baso % (Auto) (0-2) % Absolute Neuts (auto) (1.5-7.7) 10^3/ul Absolute Lymphs (auto) (1.0-4.8) 10^3/ul Absolute Monos (auto) (0-0.8) 10^3/ul Absolute Eos (auto) (0-0.6) 10^3/ul Absolute Basos (auto) (0-0.2) 10^3/ul Absolute Nucleated RBC 10^3/ul Nucleated RBC % INR (Anticoag Therapy) 0.86 (0.77-1.02) APTT 35.2 (26.0-36.3) seconds Sodium (133-145) mmol/L Potassium (3.5-5.0) mmol/L Chloride (101-111) mmol/L Carbon Dioxide (22-32) mmol/L Anion Gap (2-11) mmol/L BUN (6-24) mg/dL Creatinine (0.67-1.17) mg/dL Est GFR ( Amer) (>60) Est GFR (Non-Af Amer) (>60) BUN/Creatinine Ratio (8-20) Glucose (70-100) mg/dL Lactic Acid (0.5-2.0) mmol/L Calcium (8.6-10.3) mg/dL Magnesium (1.9-2.7) mg/dL Total Bilirubin (0.2-1.0) mg/dL AST (13-39) U/L ALT (7-52) U/L Alkaline Phosphatase (34-104) U/L Troponin I (<0.04) ng/mL Total Protein (6.4-8.9) g/dL Albumin (3.2-5.2) g/dL Globulin (2-4) g/dL Albumin/Globulin Ratio (1-3) Lipase (11.0-82.0) U/L Urine Color Yellow Urine Appearance Clear Urine pH 5.0 (5-9) Ur Specific Grant 1.019 (1.010-1.030) Urine Protein Negative (Negative) Urine Ketones Negative (Negative) Urine Blood 2+ H (Negative) Urine Nitrate Negative (Negative) Urine Bilirubin Negative (Negative) Urine Urobilinogen Negative (Negative) Ur Leukocyte Esterase Negative (Negative) Urine WBC (Auto) Absent (Absent) Urine RBC (Auto) Absent (Absent) Urine Bacteria Absent (Absent) Urine Glucose Negative (Negative) Result Diagrams: 07/30/17 03:35 07/30/17 03:35 Lab Statement: Any lab studies that have been ordered have been reviewed, and results considered in the medical decision making process. - CT Abd/Pel CT Interpretation Completed By: Radiologist - There is no bowel obstruction, free air, or free fluid. Negative for diverticulitis or colitis. Normal appendix. There is a 2.7 cm focus of narrowing in the sigmoid colon. This may simply be due to peristalsis but followup recommended ot make sure no lesion. On coronal views, there does appear to be a few loops of ileum with minimally thickened rodriguez. This could be related to nonspecific infectious or inflammatory enteritis. Recommend followup. Normal kidneys urinary tract and urinary bladder. Liver may be somewhat fatty. No obvious gallbladder abnormalities. Normal spleen. Normal pancreas. Normal adrenal glands. ED physician has reviewed this radiology report and agrees. Re-Evaluation - Re-Evaluation First Eval Re-Evaluation Time: 06:24 Change: Improved Comment: Pt feels better. Abdominal Pain Fem Course/Dx - Course Assessment/Plan: Feels better after meds. Labs within normal limits. CT abd/pel shows no evidence of appendicitis, obstructive masses, or infectious etiology. Small area of wall thickening indicative of possible colitis. Pt will be started on antibiotics. Pt agrees to and understands discharge instructions. - Diagnoses Differential Diagnosis/HQI/PQRI: Other - gastroenteritis Provider Diagnoses: Gastroenteritis Discharge - Discharge Plan Condition: Improved Disposition: HOME Prescriptions: Ciprofloxacin TAB* [Cipro 500 MG TAB*] 500 mg PO BID #10 tab Metronidazole [Flagyl 500 MG TAB] 500 mg PO TID #21 tab Patient Education Materials: Gastroenteritis (ED) Referrals: Andrzej Mcarthur MD [Primary Care Provider] - 7 Days Additional Instructions: PLEASE RETURN TO THE EMERGENCY ROOM IF YOU HAVE ANY WORSENING OR CONCERNING SYMPTOMS PLEASE MAKE AN APPOINTMENT FIRST THING IN THE MORNING TO BE SEEN BY YOUR PRIMARY CARE DOCTOR WITHIN 1 WEEK The documentation as recorded by the Mc parker Nikita accurately reflects the service I personally performed and the decisions made by me, Temo Loredo MD.
== END 2017-07-30 06:45 | disposition home or self-care (01) ==
LOC: ED 03:05
DX: K52.9 Noninfective gastroenteritis and colitis, unspecified (principal)
CPT/HCPCS: 36415; 74177; 80053; 81003; 81015; 83605; 83690; 83735; 84484; 85025; 85610; 85730; 99283; A9270-GY; J1885; J2405; Q9967

== ENCOUNTER 2017-09-27 13:54 | Day surgery (SDC) | payer OTHER ==
[~2017-09-27 13:54] MED LIST: Buffered Lidocaine 0.9% SYRIN* 5 ML/SYR SYRINGE INTRADERM ONE; Famotidine IV* 10 MG/ML 2 ML (20 mg) IV ONE; Famotidine IV* 10 MG/ML 2 ML (20 mg) ONE; Metoclopramide TAB* 10 MG ONE; Metoclopramide TAB* 10 MG PO ONE
[2017-09-27] MEDS ORDERED: ceFAZolin 2 GM in NS PREMIX(*) 2 GM/100 ML BAG IVPB ONE (14:38)
[2017-09-27] MEDS ORDERED: Bupivacaine 0.25% SDV* 30 ML ONE (14:45)
[2017-09-27] MEDS ORDERED: Midazolam* 1 MG/ML 2 ML VIAL (2 MG) ONE (15:53)
[2017-09-27] MEDS ORDERED: KETAMINE HCL* 50 MG/ML 10 ML VIAL ONE (15:53)
[2017-09-27] MEDS ORDERED: Ketorolac INJ* 30 MG/ML 1 ML VIAL ONE (15:53)
[2017-09-27] MEDS ORDERED: Ondansetron INJ* 2 MG/ML VIAL ONE (15:53)
[2017-09-27] MEDS ORDERED: Naloxone* 0.4 MG/ML 1 ML VIAL IV PRN (16:51)
[2017-09-27] MEDS ORDERED: Acetaminophen IV 1GM/100ML * 1,000 MG/100 ML VIAL IVPB ONE (16:51)
[2017-09-27] MEDS ORDERED: Ondansetron INJ* 2 MG/ML VIAL IV PRN (16:51)
[2017-09-27] MEDS ORDERED: Propofol* 10 MG/ML 20 ML BTL IV PUSH ONE (17:19)
[2017-09-27] MEDS ORDERED: Lidocaine 2% PF * 5 ML VIAL ONE (17:19)
[2017-09-27] MEDS ORDERED: fentaNYL* 50 MCG/ML 2 ML VIAL (100 MCG VIAL) ONE (17:38)
[2017-09-27] MEDS ORDERED: diPHENhydraMINE IV* 50 MG/ML 1 ml VIAL (BENADRYL) ONE (17:38)
[2017-09-27 18:58] VITALS: BP 122/90
--- NOTE | 2017-09-28 01:04 | OP ---
DATE OF OPERATION: 09/27/17 - [facility] DATE OF : 70 SURGEON: Arnel Shaikh MD GERIATRIC AIDE: ERICA Cartagena ANESTHESIOLOGIST: Dr. Agudelo. ANESTHESIA: Local MAC. PRE-OP DIAGNOSIS: Large right dorsal carpal boss. POST-OP DIAGNOSIS: Large right dorsal carpal boss. OPERATIVE PROCEDURE: Excision of right hand dorsal carpal boss. INDICATIONS: Juan has a large dorsal carpal boss that is causing him discomfort. I had seen him in the office. We talked about risks and benefits and what the surgery entailed. He wanted to proceed. ESTIMATED BLOOD LOSS: 2 mL. COMPLICATIONS: None. FINDINGS: As expected. DESCRIPTION OF PROCEDURE: Juan was seen in the preoperative holding area. The correct site, side, and procedure were identified. We came back to the operating room where the arm was prepped and draped in the usual fashion. A time-out was performed. I began by exsanguinating the arm at the Esmarch and the tourniquet inflated to 250 mmHg. Dissection was carried down and the fascia overlying the fourth dorsal compartment tendons were incised longitudinally. The traversing radial sensory nerves were protected. Deep to the fascia, the periosteum was incised longitudinally over the dorsum of the third metacarpal base where there was a large carpal boss in line with the dorsal capitate. The third CMC joint was opened. The periosteum was raised as a full thickness off of the dorsum of the distal capitate as well as base of the third metacarpal. I took care to preserve the attachment of the ECRB tendon. Once I had raised the soft tissue off the bone, I went ahead and took the osteotome and excised the carpal boss by excising the dorsal base of the third metacarpal as well as the dorsal lip of the distal capitate. Once it was back to a nice flat, smooth area with the edges smoothed off the rongeur, there was no more bony prominence felt. I irrigated out the wound. I placed bone wax over the cancellous bone. Wound was again irrigated out. The periosteum and capsule was closed with a 5-0 Prolene running stitch. The skin was closed with 4-0 Monocryl and Steri- Strips. 0.25% Marcaine had already been infiltrated. Wound was dressed with 4x4 sterile Webril and a cock-up wrist splint was applied. He was taken to the recovery room in stable condition. [id number]/[facility] #: [id number] KAREN
== END 2017-09-27 19:10 | disposition home or self-care (01) ==
LOC: OREAST 13:54
PROVIDERS: ATTEND Orthopaedic Surgery Hand Surgery
DX: M25.731 Osteophyte, right wrist (principal); M79.641 Pain in right hand; M25.732 Osteophyte, left wrist; G56.02 Carpal tunnel syndrome, left upper limb
CPT/HCPCS: A9270-GY; J0690; J1200; J1885; J2250; J2405; J2704; J3010

== ENCOUNTER 2017-10-26 21:09 | Emergency (ER) | payer SELFPAY ==
--- OUTSIDE RECORDS SUMMARY | 2017-10-26 21:36 | XMS REPORT ---
:1970 External Reference #:[id number] Author Organization [facility] Address [address] [address] Phone [phone] Care Team Providers Name Role Phone Andrzej Mcarthur III, MD Primary Care Physician Unavailable Payers Type Date Identification Numbers Payment Provider Subscriber Commercial Policy Number: [id number] [employer] Juan Thomas PayID: [id number] [address] [address] [place] [address] Commercial Expires: Policy Number: [employer] Juan Bunn 2017 [id number] Medicaid William PayID: [id number] [address] [address] [place] [address] Commercial Effective: Policy Number: [employer] Juan Bunn 2016 [id number] Medicaid William Expires: 2017 Group Name: [id number] [address] [address] PayID: [id number] [place] [address] Medigap Part B Effective: 2016 Policy Number: Medicaid Juan Thomas [id number] Expires: 2016 PayID: [id number] [address] [place] [address] Commercial Expires: Policy Number: [employer]rell[employer] Juan W 2014 [id number] Medicaid William PayID: [id number] [address] [address] [place] [address] Commercial Effective: 2010 Policy Number: Jose Luis Juan Thomas [id number] Expires: 2010 PayID: [id number] [address] [place] [address] Medigap Part B Effective: 2009 Policy Number: Medicaid Kevin W [place] [id number] Expires: 2010 PayID: [id number] [address] [place] [address] Problems Date Description Provider Status Onset: 11/03/2011 Low back pain Zonia Rizzo N.P. Active Onset: 12/13/2011 Acute pharyngitis Thanh Sabillon M.D. Active Onset: 05/22/2012 Gastroesophageal reflux disease Andrzej Mcarthur M.D. Active Onset: 07/07/2016 Malaise and fatigue Thanh Sabillon M.D. Active Onset: 07/07/2016 Obstructive sleep apnea syndrome Thanh Sabillon M.D. Active Onset: 07/07/2016 Hemorrhage of rectum and anus Tahnh Sabillon M.D. Active Onset: 08/11/2016 Shoulder joint pain Thanh Sabillon M.D. Active Onset: 08/11/2016 Mild recurrent major depression Thanh Sabillon M.D. Active Onset: 08/25/2016 Cobalamin deficiency Thanh Sabillon M.D. Active Onset: 09/01/2016 Disturbance in sleep behavior Virgie Duron MD Active Onset: 09/18/2016 Sprain of shoulder and upper arm Caroline Mcginnis M.D. Active Onset: 09/28/2016 Adhesive capsulitis of shoulder Thanh Sabillon M.D. Active Onset: 09/29/2016 Morbid obesity Virgie Duron MD Active Onset: 11/10/2016 Insomnia Amaya Spaulding DNP, RN, Active RAPID OUTSOLE STITCHER-BC Onset: 08/31/2017 Wrist joint pain Onelia Light MD Active Onset: 08/31/2017 Arthralgia of the upper arm Onelia Light MD Active Onset: 08/31/2017 Brachial neuritis Onelia Light MD Active Onset: 10/09/2017 Enthesopathy of wrist AND/OR Arnel Shaikh MD Active carpus Family History Date Family Member(s) Problem(s) Comments General Diabetes General Heart Disease General Hypertension General Stroke General Cancer Social History Type Date Description Comments Lives With Spouse Occupation Daycare Director ETOH Use Denies alcohol use Smoking Patient has never smoked Daily Caffeine Soda 24 pack/month Pepsi Exercise Type/Frequency Does not exercise General Hx Text single, no kids, lives w/ girlfriend, no sig smoking hx., no Etoh, stopped at 22 yrs. no drugs now,used to , no IVDU. Allergies, Adverse Reactions, Alerts Date Description Reaction Status Severity Comments 01/13/2009 Morphine active seizures 01/13/2009 Levaquin active hives Medications Medication Date Status Form Strength Qnty SIG Indications Ordering Provider Tramadol HCL 09/27 Active Tablets 50mg 30tab 1 tablet s by mouth MD Neel every 6 hours as needed pain No Active 08/31 Hx Unknown Medications /2017 - 09/27 Meclizine HCL 11/09 Hx Chewtabs 25mg 1 tab as Unknown needed/dir - ected 08/30 Fexofenadine HCL 09/28 Hx Tablets 180mg 30tab once daily L23.9 s Ridge - M.D. 08/30 Sertraline HCL 09/07 Hx Tablets 100mg 30tab 1 by mouth F33.0 s every day Ridge - M.D. 12/01 Sertraline HCL 08/25 Hx Tablets 50mg 30tab 1 by mouth F33.0 s every day Ridge - M.D. 09/07 Bupropion HCL ER 08/11 Hx Tablets ER 300mg 30tab 1 tab in F33.0 Thanh () 24HR s the [facility], - morning M.D. 12/01 Ibuprofen 08/11 Hx Tablets 600mg 90tab three M25.511 s times a Jose D, - day M.D. 08/30 Bupropion HCL ER 07/28 Hx Tablets ER 150mg 30tab once daily F33.0 Thanh (XL) 24HR s in the [facility], - morning M.D. 08/11 with food Cyanocobalamin 07/14 Hx Solution 1000mcg/M 30ml 1 D51.9 L milliliter Ridge - s M.D. 09/07 intramuscu lar every week No Active 07/07 Hx Unknown Medications /2015 - 07/07 Omeprazole 07/[address] 40mg 30cap 1 by mouth K21.9 s in in the [facility], - morning 1 M.D. before eating Lidocaine 05/04 Hx Patches 5% 30uni apply for M54.5 . ts 12 hours Lyubov, - daily to M.D. 07/07 area of pain Permethrin 11/29 Hx Cream 5% 2bott topical les x1, repeat Areli Campos, - in 1 week M.D.,FACP 03/06 x1 Fish Oil 03/09 Hx Capsules 1000mg 90cap 1 by mouth Andrzej E. s with each Lyubov, - meal M.D. 03/06 Amoxicillin 09/02 Hx Capsules 500mg 30cap 1 tid for 465.9 Andrzej E. s 10 days Lyubov - M.D. 10/23 Fluticasone 07/08 Hx Suspension 50mcg/Act 1bott 2 spray in 461.0 Zonia Propionate le each So, - nostril in N.P. 09/02 Nasal Saline 07/08 Hx Solution 0.65% 1ml 2 sprays 461.0 Zonia /2012 in each So, - nostril 5 N.P. 09/02 times day Lansoprazole 07/[address] 30mg 30cap 1 po qd Andrzej E. s Lyubov - M.DAnkita 03/06 Lansoprazole 09/[address] 15mg 30cap 1 po qd Andrzej E. s Lyubov - M.D. 07/02 Azithromycin 12/12 Hx Tablets 250mg 6tabs 2 tab 462 today and Ridge, - then 1tab M.D. 03/20 daily Fluticasone 11/02 Hx Suspension 50mcg/Act 1bott 2 spray in 461.0 [facility] le each Areli Campos, - nostril in M.D.,FACP 01/22 am Nasal Saline 11/02 Hx Solution 0.65% 1ml 2 sprays 461.0 in each Efrain Munson nostril 5 M.DAnkita,[facility] 07/02 times a day Azithromycin 01/05 Hx Tablets 250mg 6tabs 2 tabs po 461.0 qd x1 day, Areli Campos, - 1 tab po [facility]kita,[facility] 03/14 qd x days Amitriptyline 01/05 Hx Tablets 50mg 1 tab qhs 461.0 Efrain Munson M.D.,[facility] 03/14 Cymbalta 12/29 Hx Caps 30mg 1 cap PO 719.47 Part qd Efrain Munson M.D.,[facility] 01/05 Physical Therapy 09/05 Hx pt 724.2 Andrzej Queen evaluation Josefina Mcarthur 03/14 treatment for low back pain Sertraline HCL 01/10 Hx Tablets 100mg 30tab 1 po qd 311 Stevanovic s Joselo - M.D. 09/05 Percocet 11/08 Hx Tablets 5-325mg 30tab 1 q 4 719.47 s hours prn Efrain Munson pain M.DAnkita,[facility] 09/05 Zofran 10/08 Hx Tablets 4mg 20tab 1 q 6 787.01 Thananart s hours prn Shirley - nausea M.D. 11/08 Nexium 10/[address] 40mg 30cap 1 po qd 530.81 Thananart, s Efrain Watson M.D. 09/05 Lamisil 10/08 Hx Solution 1% 30gra Apply to 782.0 ms affected Shirley, - area bid Jeff.DAnkita 09/05 Flexeril 09/18 Hx Tablets 10mg 30tab 1 po tid Andrzej EAnkita s prn Efrain Mcarthur M.D. 03/14 Daypro 09/18 Hx Tablets 600mg 30tab 1 tab po Thananart, s bid prn Efrain Watson M.DAnkita 11/08 Naprosyn 09/02 Hx Tablets 500mg 14tab one twice 724.2 Murli s a day with Efrain Paul M.DAnkita 09/18 Omeprazole 08/[address] 20mg 60cap 1 po bid 789.9 Linda /2009 Efrain Thomas M.D. 01/27 Sertraline HCL 07/05 Hx Tablets 100mg 30tab 1 po qd 311 Thananart, s Shirley - M.DAnkita 09/22 Trazodone HCL 06/30 Hx Tablets 100mg 30tab 1 tab po Thananart, s q Efrain Watson M.DAnkita 07/05 Lunesta 06/21 Hx Tablets 2mg 30tab 1 tab po Thananart, s gely Efrain Watson M.DAnkita 06/30 PA# [id number] 4w Sertraline HCL 05/05 Hx Tablets 100mg 60tab 2 tabs po 311 Thananart, s qd Efrain Watson M.DAnkita 07/05 Sertraline HCL 03/31 Hx Tablets 25mg 60tab 1 tab po 311 Thananart, s qd x 7 Shirley, - kiran then M.D. 05/05 2 tabs po /2008 qd Lyrica 03/03 Hx Capsules 100mg 90cap 1 tab po 356.9 Thananart, s tid Efrain Watson M.DAnkita 03/31 Lyrica 02/22 Hx Capsules 50mg 15cap 1 po tid Thananart, s Shirley - M.DAnkita 03/03 Lyrica Hx Capsules 150mg 90cap 2-3 tabs 356.9 Sonny /0000 s po qhs DEfrain Baires M.D.,FACP 12/29 Dilaudid Hx Tablets 2mg 50tab 2 po q4h Unknown /0000 s prn pain - 03/20 Opana Hx 10mg 3 PO qd Unknown /0000 - 09/02 Eye Drops Hx Solution Unknown /0000 - 03/20 Opana Hx Tablets 5mg 60tab 1 tablet Unknown /0000 s four X - daily or 05/22 pr Opana Hx Tablets 10mg 90tab 1 tablet Unknown /0000 s by mouth - every 8 / hours needed for pain Opana ER Hx Tab ER 12H 20mg 45tab 1 tab po Unknown /0000 Abuse-Det s q12 hours - 03/06 Cyclobenzaprine Hx Tablets 10mg Agustin, HCL /0000 Efrain Slaughter MD 07/07 Tramadol HCL Hx Tablets 50mg Agustin, /0000 Efrain Slaughter MD 07/07 B-12 Injection Active Injection [place] / Sophia Sabillon B-12 Injection Active Injection Thanh / Sophia Sabillon Medications Administered in Office Medication Date Status Form Strength Qnty SIG Indications Ordering Provider Triamcinolone 08/31/ Administered Injection Zaneb (Kenalog) 2017 MD Kuldeep Depomedrol 40MG 09/18/ Administered Injection Caroline 2016 Sophia Mcginnis B-12 Injection 09/07/ Administered Injection [place] 2016 Sophia Sabillon B-12 Injection 09/01/ Administered Injection Nurse 2016 Visit [place] B-12 Injection 08/25/ Administered Injection [place] 2015 Sophia Sabillon B-12 Injection 08/11/ Administered Injection [place] 2015 Sophia Sabillon B-12 Injection 08/04/ Administered Injection Nurse 2015 Visit [place] B-12 Injection 07/28/ Administered Injection Thanh 2015 Sophia Sabillon B-12 Injection 07/21/ Administered Injection Nurse 2016 Visit [place] B-12 Injection 07/14/ Administered Injection Thanh 2015 Sophia Sabillon Toradol 07/05/ Administered Injection Thananart, Injection 15MG 2008 Sophia Watson Immunizations CPT Code Status Date Vaccine Lot # [id number] Given 07/02/2013 Flu Vaccine Split Virus Preservative Free For [id number] Indiv [id number] Older 78026 Given 01/03/2013 Tdap - Tetanus/Diptheria/Acellular Pertussis [id number] Given 05/22/2012 Fluzone Vaccine [id number] Given 07/21/2009 Influenza Virus Vaccine, Pandemic Formulation [id number] [id number] 75095 Given 07/21/2009 Administration Swine Flu Shot 08951 Given 07/05/2009 Influenza Virus Vaccine, Pandemic Formulation 36566 Given 07/05/2009 Administration Swine Flu Shot Vital Signs Date Vital Result Comment 10/09/2017 Height 66 inches 5'6" Weight 262.00 lb Heart Rate 89 /min Respiratory Rate 14 /min Body Temperature 97.9 F Pain Level 7 BMI (Body Mass Index) 42.3 kg/m2 09/07/2017 Height 66 inches 5'6" Weight 262.00 lb per pt Heart Rate 74 /min reg BP Systolic Sitting 124 mmHg Rue, lg cuff BP Diastolic Sitting 70 mmHg Rue, lg cuff Respiratory Rate 16 /min Pain Level 5 left hand BMI (Body Mass Index) 42.3 kg/m2 08/31/2017 Weight 262.00 lb Heart Rate 70 /min BP Systolic Sitting 140 mmHg BP Diastolic Sitting 98 mmHg Pain Level 7 Peak Flow Meter 96% 08/31/2017 Height 66 inches 5'6" Weight 264.00 lb BP Systolic 140 mmHg BP Diastolic 86 mmHg Respiratory Rate 12 /min Body Temperature 97.3 F Pain Level 8 BMI (Body Mass Index) 42.6 kg/m2 12/01/2016 Weight 248.00 lb Heart Rate 76 /min BP Systolic Sitting 124 mmHg BP Diastolic Sitting 84 mmHg Respiratory Rate 15 /min O2 % BldC Oximetry 98 % 11/10/2016 Heart Rate 82 /min BP Systolic Sitting 128 mmHg BP Diastolic Sitting 74 mmHg Respiratory Rate 16 /min O2 % BldC Oximetry 98 % 11/03/2016 Weight 249.38 lb Heart Rate 74 /min BP Systolic Sitting 123 mmHg BP Diastolic Sitting 71 mmHg Body Temperature 96.5 F O2 % BldC Oximetry 97 % 10/20/2016 Weight 248.38 lb Heart Rate 84 /min BP Systolic Sitting 110 mmHg BP Diastolic Sitting 66 mmHg Body Temperature 97.9 F O2 % BldC Oximetry 97 % 09/29/2016 Weight 242.00 lb Heart Rate 73 /min BP Systolic 140 mmHg BP Diastolic 70 mmHg Respiratory Rate 14 /min O2 % BldC Oximetry 98 % 09/28/2016 Weight 242.12 lb Heart Rate 74 /min BP Systolic Sitting 142 mmHg BP Diastolic Sitting 90 mmHg Body Temperature 98.2 F O2 % BldC Oximetry 96 % 09/18/2016 Height 66 inches 5'6" Weight 249.00 lb Heart Rate 78 /min BP Systolic 126 mmHg BP Diastolic 85 mmHg Pain Level 7 BMI (Body Mass Index) 40.2 kg/m2 09/07/2016 Height 66 inches 5'6" Weight 250.25 lb Heart Rate 92 /min BP Systolic Sitting 136 mmHg BP Diastolic Sitting 90 mmHg Body Temperature 97.8 F O2 % BldC Oximetry 98 % BMI (Body Mass Index) 40.4 kg/m2 09/01/2016 Height 66 inches 5'6" Weight 249.00 lb Heart Rate 83 /min BP Systolic Sitting 122 mmHg BP Diastolic Sitting 78 mmHg Respiratory Rate 16 /min O2 % BldC Oximetry 97 % BMI (Body Mass Index) 40.2 kg/m2 Neck Circumference in inches 17 08/25/2016 Weight 249.25 lb Heart Rate 74 /min BP Systolic Sitting 114 mmHg BP Diastolic Sitting 70 mmHg Body Temperature 96.3 F O2 % BldC Oximetry 98 % 08/11/2016 Weight 254.25 lb Heart Rate 74 /min BP Systolic Sitting 134 mmHg BP Diastolic Sitting 88 mmHg Body Temperature 97.5 F O2 % BldC Oximetry 98 % 07/28/2016 Height 65.5 inches 5'5.50" Weight 253.12 lb Heart Rate 82 /min BP Systolic Sitting 112 mmHg BP Diastolic Sitting 80 mmHg Body Temperature 98.0 F O2 % BldC Oximetry 97 % BMI (Body Mass Index) 41.5 kg/m2 07/14/2016 Weight 250.50 lb Heart Rate 69 /min BP Systolic Sitting 140 mmHg BP Diastolic Sitting 88 mmHg Body Temperature 97.2 F O2 % BldC Oximetry 98 % 07/07/2016 Weight 248.00 lb Heart Rate 97 /min BP Systolic Sitting 152 mmHg BP Diastolic Sitting 80 mmHg Body Temperature 98.0 F O2 % BldC Oximetry 90 % 05/04/2016 Weight 249.00 lb Heart Rate 79 /min BP Systolic Sitting 138 mmHg BP Diastolic Sitting 90 mmHg Body Temperature 98.1 F Pain Level 9 L lower back O2 % BldC Oximetry 98 % 03/06/2016 Weight 242.00 lb Heart Rate 66 /min BP Systolic Sitting 140 mmHg BP Diastolic Sitting 88 mmHg Body Temperature 97.7 F 05/01/2014 Height 65.5 inches 5'5.50" Weight 250.00 lb Heart Rate 80 /min BP Systolic Sitting 122 mmHg BP Diastolic Sitting 80 mmHg BMI (Body Mass Index) 41.0 kg/m2 04/29/2014 Weight 249.00 lb Heart Rate 83 /min BP Systolic Sitting 134 mmHg BP Diastolic Sitting 88 mmHg Body Temperature 97.9 F O2 % BldC Oximetry 98 % 03/03/2014 Height 65.5 inches 5'5.50" Weight 249.50 lb Heart Rate 96 /min BP Systolic Sitting 108 mmHg BP Diastolic Sitting 78 mmHg Body Temperature 98.3 F O2 % BldC Oximetry 96 % BMI (Body Mass Index) 40.9 kg/m2 10/23/2013 Height 65.5 inches 5'5.50" Weight 242.50 lb Heart Rate 80 /min BP Systolic Sitting 118 mmHg BP Diastolic Sitting 88 mmHg Body Temperature 98.3 F BMI (Body Mass Index) 39.7 kg/m2 09/02/2013 Weight 242.00 lb Heart Rate 80 /min BP Systolic Sitting 136 mmHg BP Diastolic Sitting 88 mmHg Body Temperature 97.8 F 07/08/2013 Heart Rate 80 /min BP Systolic Sitting 120 mmHg BP Diastolic Sitting 84 mmHg Body Temperature 98.7 F O2 % BldC Oximetry 96 % 07/02/2013 Height 65.5 inches 5'5.50" Weight 237.25 lb Heart Rate 92 /min BP Systolic Sitting 120 mmHg BP Diastolic Sitting 60 mmHg BMI (Body Mass Index) 38.9 kg/m2 01/22/2013 Height 65.5 inches 5'5.50" Weight 233.50 lb Heart Rate 72 /min BP Systolic Sitting 120 mmHg BP Diastolic Sitting 86 mmHg BMI (Body Mass Index) 38.3 kg/m2 05/22/2012 Height 65.5 inches 5'5.50" Weight 236.00 lb Heart Rate 74 /min BP Systolic Sitting 130 mmHg BP Diastolic Sitting 82 mmHg BMI (Body Mass Index) 38.7 kg/m2 03/20/2012 Height 65.5 inches 5'5.50" Weight 230.00 lb Heart Rate 80 /min BP Systolic Sitting 140 mmHg BP Diastolic Sitting 84 mmHg BMI (Body Mass Index) 37.7 kg/m2 02/27/2012 Height 65.5 inches 5'5.50" Weight 234.25 lb Heart Rate 80 /min BP Systolic Sitting 120 mmHg BP Diastolic Sitting 78 mmHg Body Temperature 98.0 F BMI (Body Mass Index) 38.4 kg/m2 12/13/2011 Height 66 inches 5'6" Weight 238.00 lb Heart Rate 77 /min BP Systolic Sitting 120 mmHg BP Diastolic Sitting 80 mmHg Body Temperature 96.8 F BMI (Body Mass Index) 38.4 kg/m2 11/03/2011 Height 66 inches 5'6" Weight 237.00 lb BP Systolic Sitting 120 mmHg L BP Diastolic Sitting 78 mmHg L BMI (Body Mass Index) 38.2 kg/m2 03/14/2011 Weight 224.00 lb Heart Rate 68 /min BP Systolic Sitting 122 mmHg BP Diastolic Sitting 82 mmHg Respiratory Rate 18 /min 01/05/2011 Weight 229.00 lb Heart Rate 74 /min BP Systolic Sitting 118 mmHg BP Diastolic Sitting 74 mmHg Body Temperature 98.7 F Tympanically 12/29/2010 Heart Rate 82 /min BP Systolic Sitting 120 mmHg BP Diastolic Sitting 86 mmHg 09/05/2010 Weight 230.00 lb Heart Rate 86 /min BP Systolic Sitting 124 mmHg BP Diastolic Sitting 70 mmHg O2 % BldC Oximetry 98 % 01/27/2010 Weight 217.00 lb Heart Rate 60 /min BP Systolic Sitting 110 mmHg BP Diastolic Sitting 70 mmHg 12/02/2009 Height 65.5 inches 5'5.50" Weight 214.00 lb Heart Rate 90 /min BP Systolic 110 mmHg BP Diastolic 78 mmHg BMI (Body Mass Index) 35.1 kg/m2 11/08/2009 Height 65.5 inches 5'5.50" Weight 215.00 lb Heart Rate 68 /min BP Systolic Sitting 130 mmHg BP Diastolic Sitting 68 mmHg Body Temperature 97.4 F BMI (Body Mass Index) 35.2 kg/m2 10/08/2009 Height 65.5 inches 5'5.50" Weight 180.00 lb Heart Rate 82 /min BP Systolic Sitting 110 mmHg BP Diastolic Sitting 74 mmHg BMI (Body Mass Index) 29.5 kg/m2 09/22/2009 Height 65.5 inches 5'5.50" Weight 216.00 lb Heart Rate 72 /min BP Systolic Sitting 114 mmHg BP Diastolic Sitting 78 mmHg Body Temperature 98.7 F BMI (Body Mass Index) 35.4 kg/m2 09/02/2009 Heart Rate 84 /min BP Systolic Sitting 114 mmHg BP Diastolic Sitting 84 mmHg Respiratory Rate 16 /min 08/24/2009 Heart Rate 80 /min BP Systolic Sitting 100 mmHg BP Diastolic Sitting 70 mmHg BP Systolic Standing 132 mmHg BP Diastolic Standing 90 mmHg Body Temperature 98.8 F 07/21/2009 Weight 208.25 lb Heart Rate 82 /min BP Systolic Sitting 131 mmHg BP Diastolic Sitting 85 mmHg Body Temperature 98.4 F O2 % BldC Oximetry 97 % 07/05/2009 Weight 210.00 lb Heart Rate 80 /min BP Systolic Sitting 110 mmHg BP Diastolic Sitting 80 mmHg 06/10/2009 Weight 210.75 lb Heart Rate 84 /min BP Systolic Sitting 120 mmHg BP Diastolic Sitting 76 mmHg Body Temperature 98.5 F 05/05/2009 Height 65.5 inches 5'5.50" Weight 211.25 lb Heart Rate 72 /min BP Systolic Sitting 104 mmHg BP Diastolic Sitting 74 mmHg Body Temperature 98.0 F BMI (Body Mass Index) 34.6 kg/m2 03/31/2009 Weight 216.25 lb Heart Rate 60 /min BP Systolic Sitting 114 mmHg BP Diastolic Sitting 80 mmHg 03/03/2009 Weight 212.25 lb Heart Rate 76 /min BP Systolic Sitting 132 mmHg BP Diastolic Sitting 94 mmHg 01/13/2009 Height 66.5 inches 5'6.50" Weight 210.00 lb Heart Rate 60 /min BP Systolic Sitting 126 mmHg BP Diastolic Sitting 82 mmHg BMI (Body Mass Index) 33.4 kg/m2 Results Test Date Test Result H/L Range Note Laboratory test 09/27/2017 Surgical Pathology SEE RESULT BELOW 1, 2 finding Urinalysis Profile 07/30/2017 Urine Color Yellow Urine Appearance Clear Urine Specific [place] 1.019 1.010-1.030 Urine pH 5.0 5-9 Urine Urobilinogen Negative Negative Urine Ketones Negative Negative Urine Protein Negative Negative Urine Leukocytes Negative Negative Urine Blood 2+ Negative Urine Nitrite Negative Negative Urine Bilirubin Negative Negative Urine Glucose Negative Negative Urine White Blood Cell Absent Absent Urine Red Blood Cell Absent Absent Urine Bacteria Absent Absent Laboratory test finding 07/30/2017 Lactic Acid 1.9 mmol/L 0.5-2.0 3 Laboratory test finding 07/30/2017 Partial Thrombo Time 35.2 seconds 26.0 -36.3 PTT Inr/Protime 07/30/2017 Inr 0.86 0.77-1.02 4 CBC Auto Diff 07/30/2017 White Blood Count 12.2 10^3/uL High 3.5-10.8 Red Blood Count 4.96 10^6/uL 4.0-5.4 Hemoglobin 14.4 g/dL 14.0-18.0 Hematocrit 43 % 42-52 Mean Corpuscular Volume 88 fL 80-94 Mean Corpuscular Hemoglobin 29 pg 27-31 Mean Corpuscular HGB Conc 33 g/dL 31-36 Red Cell Distribution Width 14 % 10.5-15 Platelet Count 224 10^3/uL 150-450 Mean Platelet Volume 10 um3 7.4-10.4 Abs Neutrophils 9.1 10^3/uL High 1.5-7.7 Abs Lymphocytes 2.0 10^3/uL 1.0-4.8 Abs Monocytes 0.9 10^3/uL High 0-0.8 Abs Eosinophils 0.1 10^3/uL 0-0.6 Abs Basophils 0.1 10^3/uL 0-0.2 Abs Nucleated RBC 0 10^3/uL Granulocyte % 74.8 % 38-83 Lymphocyte % 16.1 % Low 25-47 Monocyte % 7.5 % 1-9 Eosinophil % 1.0 % 0-6 Basophil % 0.6 % 0-2 Nucleated Red Blood Cells % 0 Laboratory test finding 07/30/2017 Magnesium 1.9 mg/dL 1.9-2.7 Lipase 16 U/L 11.0-82.0 Troponin-I (TnI) 0.00 ng/mL <0.04 Comp Metabolic Panel 07/30/2017 Sodium 137 mmol/L 133-145 Potassium 3.6 mmol/L 3.5-5.0 Chloride 106 mmol/L 101-111 Co2 Carbon Dioxide 23 mmol/L 22-32 Anion Gap 8 mmol/L 2-11 Glucose 144 mg/dL High 70-100 Blood Urea Nitrogen 14 mg/dL 6-24 Creatinine 0.78 mg/dL 0.67-1.17 BUN/Creatinine Ratio 17.9 8-20 Calcium 8.9 mg/dL 8.6-10.3 Total Protein 6.9 g/dL 6.4-8.9 Albumin 4.2 g/dL 3.2-5.2 Globulin 2.7 g/dL 2-4 Albumin/Globulin Ratio 1.6 1-3 Total Bilirubin 0.40 mg/dL 0.2-1.0 Alkaline Phosphatase 47 U/L 34-104 Alt 20 U/L 7-52 Ast 15 U/L 13-39 Egfr Non- 106.7 >60 Egfr 137.2 >60 5 Laboratory test finding 04/30/2017 Lactic Acid 1.3 mmol/L 0.5-2.0 6 CBC Auto Diff 04/30/2017 White Blood Count 9.2 10^3/uL 3.5-10.8 Red Blood Count 4.85 10^6/uL 4.0-5.4 Hemoglobin 14.5 g/dL 14.0-18.0 Hematocrit 42 % 42-52 Mean Corpuscular Volume 87 fL 80-94 Mean Corpuscular Hemoglobin 30 pg 27-31 Mean Corpuscular HGB Conc 35 g/dL 31-36 Red Cell Distribution Width 14 % 10.5-15 Platelet Count 218 10^3/uL 150-450 Mean Platelet Volume 10 um3 7.4-10.4 Abs Neutrophils 5.3 10^3/uL 1.5-7.7 Abs Lymphocytes 3.0 10^3/uL 1.0-4.8 Abs Monocytes 0.7 10^3/uL 0-0.8 Abs Eosinophils 0.1 10^3/uL 0-0.6 Abs Basophils 0.1 10^3/uL 0-0.2 Abs Nucleated RBC 0.01 10^3/uL Granulocyte % 57.2 % 38-83 Lymphocyte % 33.0 % 25-47 Monocyte % 7.6 % 1-9 Eosinophil % 1.5 % 0-6 Basophil % 0.7 % 0-2 Nucleated Red Blood Cells % 0.1 Comp Metabolic Panel 04/30/2017 Sodium 137 mmol/L 133-145 Chloride 105 mmol/L 101-111 Co2 Carbon Dioxide 24 mmol/L 22-32 Glucose 144 mg/dL High 70-100 Blood Urea Nitrogen 17 mg/dL 6-24 Creatinine 0.75 mg/dL 0.67-1.17 BUN/Creatinine Ratio 22.7 High 8-20 Calcium 8.8 mg/dL 8.6-10.3 7 Total Protein 6.6 g/dL 6.4-8.9 Albumin 4.0 g/dL 3.2-5.2 Globulin 2.6 g/dL 2-4 Albumin/Globulin Ratio 1.5 1-3 Total Bilirubin 0.40 mg/dL 0.2-1.0 Alkaline Phosphatase 50 U/L 34-104 Alt 15 U/L 7-52 Egfr Non- 111.6 >60 Egfr 143.6 >60 8 Potassium TNP mmol/L 3.5-5.0 Anion Gap 8 mmol/L 2-11 Ast TNP U/L 13-39 Laboratory test finding 04/30/2017 Lipase 21 U/L 11.0-82.0 C Reactive Protein 4.02 mg/L < 5.00 9 CBC Auto Diff 12/15/2016 White Blood Count 8.6 10^3/uL 3.5-10.8 Red Blood Count 5.22 10^6/uL 4.0-5.4 Hemoglobin 15.1 g/dL 14.0-18.0 Hematocrit 45 % 42-52 Mean Corpuscular Volume 87 fL 80-94 Mean Corpuscular Hemoglobin 29 pg 27-31 Mean Corpuscular HGB Conc 34 g/dL 31-36 Red Cell Distribution Width 14 % 10.5-15 Platelet Count 203 10^3/uL 150-450 Mean Platelet Volume 10 um3 7.4-10.4 Abs Neutrophils 5.3 10^3/uL 1.5-7.7 Abs Lymphocytes 2.6 10^3/uL 1.0-4.8 Abs Monocytes 0.6 10^3/uL 0-0.8 Abs Eosinophils 0.1 10^3/uL 0-0.6 Abs Basophils 0.1 10^3/uL 0-0.2 Abs Nucleated RBC 0.01 10^3/uL Granulocyte % 61.9 % 38-83 Lymphocyte % 29.7 % 25-47 Monocyte % 6.4 % 1-9 Eosinophil % 1.3 % 0-6 Basophil % 0.7 % 0-2 Nucleated Red Blood Cells % 0.1 Laboratory test finding 12/15/2016 Hemoglobin A1c 5.5 % Less than 6.0 10 Comp Metabolic Panel 12/15/2016 Sodium 137 mmol/L 133-145 Potassium 4.1 mmol/L 3.5-5.0 Chloride 103 mmol/L 101-111 Co2 Carbon Dioxide 28 mmol/L 22-32 Anion Gap 6 mmol/L 2-11 Glucose 98 mg/dL 70-100 Blood Urea Nitrogen 11 mg/dL 6-24 Creatinine 0.74 mg/dL 0.67-1.17 BUN/Creatinine Ratio 14.9 8-20 Calcium 9.0 mg/dL 8.6-10.3 Total Protein 6.6 g/dL 6.4-8.9 Albumin 4.1 g/dL 3.2-5.2 Globulin 2.5 g/dL 2-4 Albumin/Globulin Ratio 1.6 1-3 Total Bilirubin 0.60 mg/dL 0.2-1.0 Alkaline Phosphatase 40 U/L 34-104 Alt 14 U/L 7-52 Ast 12 U/L Low 13-39 Egfr Non- 113.9 >60 Egfr 146.4 >60 11 Iron & Iron Binding Capacity 12/15/2016 Iron 97 g/dL 50-212 Unsaturated Iron Binding 238 g/dL Total Iron Binding Capacity 335 g/dL 250-450 % Iron Saturation 29 % 15-55 Laboratory test finding 12/15/2016 TSH (Thyroid Stim Horm) 2.25 mcIU/mL 0.34-5.60 Ferritin 137.3 ng/mL 24-336 Folic Acid (Folate) 14.21 ng/mL >3.99 Vitamin B12 210 pg/mL 180-914 12 Vitamin D Total 25(Oh) 9.8 ng/mL Low 30-50 Vitamin B1 Whole Blood 194 nmol/L 70-180 13 Vitamin E Level 11.7 mg/L 5.5 - 17.0 14 Vitamin B12 And Folate Serum 09/07/2016 Vitamin B12 > 1450 pg/mL High 180-914 15 Folic Acid (Folate) 12.43 ng/mL >3.99 Laboratory test finding 09/07/2016 Uric Acid 6.3 mg/dL 4.4-7.6 Urinalysis Profile 08/25/2016 Urine Color Yellow Urine Appearance Clear Urine Specific [place] 1.025 1.010-1.030 Urine pH 7.0 5-9 Urine Urobilinogen Positive Negative Urine Ketones Negative Negative Urine Protein Negative Negative Urine Leukocytes Negative Negative Urine Blood Negative Negative Urine Nitrite Negative Negative Urine Bilirubin Negative Negative Urine Glucose Negative Negative CBC No Diff 07/12/2016 White Blood Count 7.9 10^3/uL 3.5-10.8 Red Blood Count 5.10 10^6/uL 4.0-5.4 Hemoglobin 14.9 g/dL 14.0-18.0 Hematocrit 45 % 42-52 Mean Corpuscular Volume 87 fL 80-94 Mean Corpuscular Hemoglobin 29 pg 27-31 Mean Corpuscular HGB Conc 34 g/dL 31-36 Red Cell Distribution Width 14 % 10.5-15 Platelet Count 199 10^3/uL 150-450 Mean Platelet Volume 10 um3 7.4-10.4 Basic Metabolic Panel 07/12/2016 Sodium 138 mmol/L 133-145 Potassium 3.9 mmol/L 3.5-5.0 Chloride 106 mmol/L 101-111 Co2 Carbon Dioxide 25 mmol/L 22-32 Anion Gap 7 mmol/L 2-11 Glucose 141 mg/dL High 70-100 Blood Urea Nitrogen 13 mg/dL 6-24 Creatinine 0.70 mg/dL 0.67-1.17 BUN/Creatinine Ratio 18.6 8-20 Calcium 8.6 mg/dL 8.6-10.3 Egfr Non- 121.4 >60 Egfr 156.1 >60 16 Laboratory test finding 07/12/2016 B-Type Natriuretic Peptide BNP 6 pg/mL 17 Urinalysis Profile 07/12/2016 Urine Color Yellow Urine Appearance Clear Urine Specific [place] 1.021 1.010-1.030 Urine pH 6.0 5-9 Urine Urobilinogen Positive Negative Urine Ketones Negative Negative Urine Protein Negative Negative Urine Leukocytes Negative Negative Urine Blood 1+ Negative Urine Nitrite Negative Negative Urine Bilirubin Negative Negative Urine Glucose Negative Negative Urine White Blood Cell Absent Absent Urine Red Blood Cell 2+(6-10/hpf) Absent Urine Bacteria Absent Absent CBC Auto Diff 07/07/2016 White Blood Count 9.8 10^3/uL 3.5-10.8 Red Blood Count 5.16 10^6/uL 4.0-5.4 Hemoglobin 15.1 g/dL 14.0-18.0 Hematocrit 45 % 42-52 Mean Corpuscular Volume 87 fL 80-94 Mean Corpuscular Hemoglobin 29 pg 27-31 Mean Corpuscular HGB Conc 34 g/dL 31-36 Red Cell Distribution Width 14 % 10.5-15 Platelet Count 212 10^3/uL 150-450 Mean Platelet Volume 10 um3 7.4-10.4 Abs Neutrophils 6.6 10^3/uL 1.5-7.7 Abs Lymphocytes 2.3 10^3/uL 1.0-4.8 Abs Monocytes 0.7 10^3/uL 0-0.8 Abs Eosinophils 0.1 10^3/uL 0-0.6 Abs Basophils 0 10^3/uL 0-0.2 Abs Nucleated RBC 0 10^3/uL Granulocyte % 67.6 % 38-83 Lymphocyte % 23.7 % Low 25-47 Monocyte % 7.6 % 1-9 Eosinophil % 0.8 % 0-6 Basophil % 0.3 % 0-2 Nucleated Red Blood Cells % 0 Comp Metabolic Panel 07/07/2016 Sodium 139 mmol/L 133-145 Potassium 3.7 mmol/L 3.5-5.0 Chloride 103 mmol/L 101-111 Co2 Carbon Dioxide 26 mmol/L 22-32 Anion Gap 10 mmol/L 2-11 Glucose 104 mg/dL High 70-100 Blood Urea Nitrogen 13 mg/dL 6-24 Creatinine 0.63 mg/dL Low 0.67-1.17 BUN/Creatinine Ratio 20.6 High 8-20 Calcium 9.1 mg/dL 8.6-10.3 Total Protein 6.7 g/dL 6.4-8.9 Albumin 4.0 g/dL 3.2-5.2 Globulin 2.7 g/dL 2-4 Albumin/Globulin Ratio 1.5 1-3 Total Bilirubin 0.60 mg/dL 0.2-1.0 Alkaline Phosphatase 50 U/L 34-104 Alt 19 U/L 7-52 Ast 12 U/L Low 13-39 Egfr Non- 137.1 >60 Egfr 176.3 >60 18 Laboratory test finding 07/07/2016 TSH (Thyroid Stim 2.33 mcIU/mL 0.34- 5.60 Horm) Vitamin B12 And Folate 07/07/2016 Vitamin B12 163 pg/mL Low 180-914 19 Serum Folic Acid (Folate) 11.44 ng/mL >3.99 Urinalysis Profile 05/06/2016 Urine Color Yellow Urine Appearance Clear Urine Specific [place] 1.016 1.010-1.030 Urine pH 6.0 5-9 Urine Urobilinogen Negative Negative Urine Ketones Negative Negative Urine Protein Negative Negative Urine Leukocytes Negative Negative Urine Blood 1+ Negative Urine Nitrite Negative Negative Urine Bilirubin Negative Negative Urine Glucose Negative Negative Urine White Blood Cell Absent Absent Urine Red Blood Cell Trace(0-2/hpf) Absent Urine Bacteria Absent Absent Laboratory test finding 05/06/2016 PSA Diagnostic 0.612 ng/mL 0-4.000 Comp Metabolic Panel 05/02/2016 Sodium 137 mmol/L 133-145 Chloride 103 mmol/L 101-111 Co2 Carbon Dioxide 27 mmol/L 22-32 Glucose 103 mg/dL High 70-100 Blood Urea Nitrogen 12 mg/dL 6-24 Creatinine 0.70 mg/dL 0.67-1.17 BUN/Creatinine Ratio 17.1 8-20 Calcium 8.8 mg/dL 8.6-10.3 Total Protein 6.9 g/dL 6.4-8.9 Albumin 4.2 g/dL 3.2-5.2 Globulin 2.7 g/dL 2-4 Albumin/Globulin Ratio 1.6 1-3 Total Bilirubin 0.50 mg/dL 0.2-1.0 Alkaline Phosphatase 47 U/L 34-104 Alt 22 U/L 7-52 Egfr Non- 121.4 >60 Egfr 156.1 >60 20 Potassium 3.7 mmol/L 3.5-5.0 Anion Gap 7 mmol/L 2-11 Ast 16 U/L 13-39 Laboratory test finding 05/02/2016 Lipase 21 U/L 11.0-82.0 C Reactive Protein 3.39 mg/L < 5.00 21 CBC Auto Diff 05/02/2016 White Blood Count 10.9 10^3/uL High 3.5-10.8 Red Blood Count 5.44 10^6/uL High 4.0-5.4 Hemoglobin 15.6 g/dL 14.0-18.0 Hematocrit 47 % 42-52 Mean Corpuscular Volume 86 fL 80-94 Mean Corpuscular Hemoglobin 29 pg 27-31 Mean Corpuscular HGB Conc 34 g/dL 31-36 Red Cell Distribution Width 14 % 10.5-15 Platelet Count 222 10^3/uL 150-450 Mean Platelet Volume 10 um3 7.4-10.4 Abs Neutrophils 6.9 10^3/uL 1.5-7.7 Abs Lymphocytes 3.0 10^3/uL 1.0-4.8 Abs Monocytes 0.8 10^3/uL 0-0.8 Abs Eosinophils 0.1 10^3/uL 0-0.6 Abs Basophils 0.1 10^3/uL 0-0.2 Abs Nucleated RBC 0.01 10^3/uL Granulocyte % 63.6 % 38-83 Lymphocyte % 27.8 % 25-47 Monocyte % 7.1 % 1-9 Eosinophil % 1.0 % 0-6 Basophil % 0.5 % 0-2 Nucleated Red Blood Cells % 0 Inr/Protime 05/02/2016 Inr 0.96 0.89-1.11 Laboratory test finding 05/02/2016 Partial Thrombo Time 33.0 seconds 26.0 -36.3 PTT Lactic Acid 1.0 mmol/L 0.5-2.0 22 Urinalysis Profile 05/02/2016 Urine Color Yellow Urine Appearance Clear Urine Specific [place] 1.014 1.010-1.030 Urine pH 6.0 5-9 Urine Urobilinogen Negative Negative Urine Ketones Negative Negative Urine Protein Negative Negative Urine Leukocytes Negative Negative Urine Blood 1+ Negative Urine Nitrite Negative Negative Urine Bilirubin Negative Negative Urine Glucose Negative Negative Urine White Blood Cell Absent Absent Urine Red Blood Cell 1+(3-5/hpf) Absent Urine Bacteria Absent Absent Basic Metabolic Panel 03/07/2016 Sodium 140 mmol/L 133-145 Potassium 4.4 mmol/L 3.5-5.0 Chloride 104 mmol/L 101-111 Co2 Carbon Dioxide 28 mmol/L 22-32 Anion Gap 8 mmol/L 2-11 Glucose 107 mg/dL High 70-100 Blood Urea Nitrogen 12 mg/dL 6-24 Creatinine 0.81 mg/dL 0.67-1.17 BUN/Creatinine Ratio 14.8 8-20 Calcium 9.3 mg/dL 8.6-10.3 Egfr Non- 103.0 >60 Egfr 132.5 >60 23 Lipid Profile (Trig/Chol/HDL) 03/07/2016 Triglycerides 273 mg/dL 24 Cholesterol 211 mg/dL 25 HDL Cholesterol 26.9 mg/dL 26 LDL Cholesterol 130 mg/dL 27 CBC Auto Diff 08/01/2015 White Blood Count 8.9 10^3/uL 4.8-10.8 Red Blood Count 4.95 10^6/uL 4.0-5.4 Hemoglobin 14.6 g/dL 14.0-18.0 Hematocrit 44 % 42-52 Mean Corpuscular Volume 90 fL 80-94 Mean Corpuscular Hemoglobin 30 pg 27-31 Mean Corpuscular HGB Conc 33 g/dL 31-36 Red Cell Distribution Width 14 % 10.5-15 Platelet Count 209 10^3/uL 150-450 Mean Platelet Volume 10 um3 7.4-10.4 Abs Neutrophils 4.8 10^3/uL 1.5-7.7 Abs Lymphocytes 3.1 10^3/uL 1.0-4.8 Abs Monocytes 0.7 10^3/uL 0-0.8 Abs Eosinophils 0.1 10^3/uL 0-0.6 Abs Basophils 0.1 10^3/uL 0-0.2 Abs Nucleated RBC 0.01 10^3/uL Granulocyte % 54.1 % 38-83 Lymphocyte % 35.4 % 25-47 Monocyte % 8.2 % 1-9 Eosinophil % 1.5 % 0-6 Basophil % 0.8 % 0-2 Nucleated Red Blood Cells % 0.1 Laboratory test 08/01/2015 B-Type Natriuretic 12 pg/mL 28 finding Peptide BNP Inr/Protime 08/01/2015 Inr 0.88 Low 0.89-1.11 Laboratory test 08/01/2015 Partial Thrombo Time 37.9 seconds High 26.0- 36.3 finding PTT Comp Metabolic Panel 08/01/2015 Sodium 135 mmol/L 133-145 Chloride 101 mmol/L 101-111 Co2 Carbon Dioxide 25 mmol/L 22-32 Glucose 179 mg/dL High 70-100 Blood Urea Nitrogen 14 mg/dL 6-24 Creatinine 0.76 mg/dL 0.67-1.17 BUN/Creatinine Ratio 18.4 8-20 Calcium 9.2 mg/dL 8.6-10.3 Total Protein 7.1 g/dL 6.4-8.9 Albumin 4.1 g/dL 3.2-5.2 Globulin 3.0 g/dL 2-4 Albumin/Globulin Ratio 1.4 1-3 Total Bilirubin 0.40 mg/dL 0.2-1.0 Alkaline Phosphatase 58 U/L 34-104 Alt 24 U/L 7-52 Egfr Non- 110.9 >60 Egfr 142.6 >60 29 Potassium 3.8 mmol/L 3.5-5.0 Anion Gap 9 mmol/L 2-11 Ast 16 U/L 13-39 Laboratory test 08/01/2015 C Reactive Protein 4.74 mg/L < 5.00 30 finding Laboratory test 03/21/2015 Throat Beta Strep SEE RESULT BELOW 31 finding Culture Lipid Profile 03/04/2014 Triglycerides 521 mg/dL 32 (Trig/Chol/HDL) Cholesterol 190 mg/dL 33 HDL Cholesterol 25.1 mg/dL 34 LDL Cholesterol (SEE NOTE) mg/dL 35 Laboratory test finding 03/04/2014 Glucose 99 mg/dL 70-100 Laboratory test finding 02/27/2014 Potassium Redraw 3.8 mmol/L 3.7-5.6 Ast Redraw 19 U/L 13-39 CBC Auto Diff 02/27/2014 White Blood Count 9.5 10^3/uL 4.8-10.8 36 Red Blood Count 5.14 10^6/uL 4.0-5.4 36 Hemoglobin 15.6 g/dL 14.0-18.0 36 Hematocrit 44 % 42-52 36 Mean Corpuscular Volume 86 fL 80-94 36 Mean Corpuscular Hemoglobin 30 pg 27-31 36 Mean Corpuscular HGB Conc 35 g/dL 31-36 36 Red Cell Distribution Width 14 % 10.5-15 36 Platelet Count 223 10^3/uL 150-450 36 Mean Platelet Volume 10 um3 7.4-10.4 36 Abs Neutrophils 5.7 10^3/uL 1.5-7.7 36 Abs Lymphocytes 2.8 10^3/uL 1.0-4.8 36 Abs Monocytes 0.7 10^3/uL 0-0.8 36 Abs Eosinophils 0.1 10^3/uL 0-0.6 36 Abs Basophils 0.1 10^3/uL 0-0.2 36 Abs Nucleated RBC 0.01 10^3/uL 36 Granulocyte % 60.0 % 38-83 36 Lymphocyte % 29.9 % 25-47 36 Monocyte % 7.8 % 1-9 36 Eosinophil % 1.2 % 0-6 36 Basophil % 1.1 % 0-2 36 Nucleated Red Blood Cells % 0.1 36 Comp Metabolic Panel 02/27/2014 Sodium 136 mmol/L 133-145 36 Potassium TNP mmol/L 3.7-5.6 36 Chloride 102 mmol/L 101-111 36 Co2 Carbon Dioxide 28 mmol/L 22-32 36 Anion Gap TNP mmol/L 2-11 36 Glucose 93 mg/dL 70-100 36 Blood Urea Nitrogen 16 mg/dL 6-24 36 Creatinine 0.96 mg/dL 0.67-1.17 36 BUN/Creatinine Ratio 16.7 8-20 36 Calcium 9.4 mg/dL 8.6-10.3 36, 37 Total Protein 7.0 g/dL 6.4-8.9 36 Albumin 4.4 g/dL 3.2-5.2 36 Globulin 2.6 g/dL 2-4 36 Albumin/Globulin Ratio 1.7 1-3 36 Total Bilirubin 0.40 mg/dL 0.2-1.0 36 Alkaline Phosphatase 49 U/L 34-104 36 Alt 20 U/L 7-52 36 Ast TNP U/L 13-39 36 Egfr Non- 85.5 >60 36 Egfr 109.9 >60 36, 38 Laboratory test finding 02/27/2014 Uric Acid 7.3 mg/dL 4.4-7.6 36, 39 C Reactive Protein 2.75 mg/L < 5.00 36, 40 D Dimer Quantitative < 200 ng/mL Less Than 230 36, 41 B Type Natriuretic Peptide 9 pg/mL 36, 42 Troponin I 0.00 ng/mL <0.03 36, 43 Factor 5 Leiden Mutation 09/24/2013 Factor V Leiden Mutation Negative Negative Factor V Leiden Interpretation See Comment 44 Factor V Leiden Reviewed By See Comment 45 CBC Auto Diff 07/02/2013 White Blood Count 7.4 10^3/uL 4.8-10.8 Red Blood Count 5.36 10^6/uL 4.0-5.4 Hemoglobin 15.1 g/dL 14.0-18.0 Hematocrit 48 % 42-52 Mean Corpuscular Volume 89 fL 80-94 Mean Corpuscular Hemoglobin 28 pg 27-31 Mean Corpuscular HGB Conc 32 g/dL 31-36 Red Cell Distribution Width 14 % 10.5-15 Platelet Count 227 10^3/uL 150-450 Mean Platelet Volume 10 um3 7.4-10.4 Abs Neutrophils 4.3 10^3/uL 1.5-7.7 Abs Lymphocytes 2.3 10^3/uL 1.0-4.8 Abs Monocytes 0.6 10^3/uL 0-0.8 Abs Eosinophils 0.1 10^3/uL 0-0.6 Abs Basophils 0.1 10^3/uL 0-0.2 Abs Nucleated RBC 0.01 10^3/uL Granulocyte % 58.7 % 38-83 Lymphocyte % 30.9 % 25-47 Monocyte % 8.5 % 1-9 Eosinophil % 1.2 % 0-6 Basophil % 0.7 % 0-2 Nucleated Red Blood Cells % 0.1 Comp Metabolic Panel 07/02/2013 Sodium 138 mmol/L 133-145 Potassium 4.1 mmol/L 3.5-5.0 Chloride 105 mmol/L 101-111 Co2 Carbon Dioxide 27.0 mmol/L 22-32 Anion Gap 6.0 mmol/L 2-11 Glucose 80 mg/dL 70-100 Blood Urea Nitrogen 16 mg/dL 6-24 Creatinine 0.70 mg/dL 0.50-1.40 BUN/Creatinine Ratio 22.9 High 8-20 Calcium 9.3 mg/dL 8.1-9.9 Total Protein 6.4 g/dL 6.2-8.1 Albumin 4.3 g/dL 3.6-5.4 Globulin 2.1 g/dL 2-4 Albumin/Globulin Ratio 2.0 1-3 Total Bilirubin 0.7 mg/dL 0.4-1.5 Alkaline Phosphatase 49 U/L 30-110 Alt 23 U/L 14-54 Ast 17 U/L 12-42 Egfr Non- 123.1 >60 Egfr 158.3 >60 46 Laboratory test finding 07/02/2013 TSH (Thyroid Stimulating 2.04 miu/mL 0.34-5.60 Horm) CBC Auto Diff 05/22/2012 White Blood Count 7.5 CUMM 4.8-10.8 47 Red Cell Count 4.94 CUMM 4.6-6.2 47 Hemoglobin 15.3 g/dL 14.0-18.0 47 Hematocrit 45 % 42-52 47 Mean Corpuscular Volume 90 um3 80-94 47 Mean Corpuscular Hemoglob 31 pg 27-31 47 Mean Corpuscular HGB Cone 34 g/dL 32-36 47 Redcell Distribution WDTH 13 % 10.5-15 47 Platelet Count 211 CUMM 150-450 47 Mean Platelet Volume 10.6 um3 High 7.4-10.4 47 Gran % 57.4 % 38-83 47 Lymph % 33.4 % 20-45 47 Mononuclear % 7.1 % 1-9 47 Eosinophil % 1.3 % 0-6 47 Basophil % 0.8 % 0-2 47 Abs Lymphs 2.5 1.0-4.8 47 Abs Mononuclear 0.5 0-0.8 47 Absolute Neutrophil Count 4.3 1.5-7.7 47 Abs Eosinophils 0.1 0-0.6 47 Abs Basophils 0.1 0-0.2 47 Comp Metabolic Panel 05/22/2012 Sodium 140 mmol/L 135-145 47 Potassium 4.0 mmol/L 3.5-5.0 47 Chloride 103 mmol/L 101-111 47 Co2 (Carbon Dioxide) 31.0 mmol/L 22-32 47 Anion Gap 6.0 mmol/L 2-11 47, 48 Glucose 77 mg/dL 70-100 47 BUN 10 mg/dL 6-24 47 Creatinine 0.7 mg/dL 0.50-1.40 47 One Over Creatinine 1.42 47 BUN/Creatinine Ratio 14.3 8-20 47 Calcium 9.4 mg/dL 8.1-9.9 47 Total Protein 6.1 GM/DL Low 6.2-8.1 47 Albumin 4.1 GM/DL 3.6-5.4 47 Globulin 2.0 GM/DL 2-4 47 Albumin/Globulin Ratio 2.1 1-3 47 Bilirubin Total 0.9 mg/dL 0.4-1.5 47, 49 Alkaline Phosphatase 49 U/L 39-117 47 Alt (SGPT) 27 U/L 17-63 47 Ast (Sgot) 17 U/L 12-42 47 eGFR Non- 123.7 > 60 47 eGFR 159.0 > 60 47, 50 Laboratory test 05/22/2012 TSH 3.63 MIU/ML 0.34-5.60 47 finding Surgical Pathology 01/05/2011 Surgical Pathology 51 <SEE NOTE> CBC With Manual Diff 08/24/2009 White Blood Count 7.6 CUMM 4.8-10.8 Red Cell Count 5.38 CUMM 4.6-6.2 Hemoglobin 15.9 g/dL 14.0-18.0 Hematocrit 47 % 42-52 Mean Corpuscular Volume 88 um3 80-94 Mean Corpuscular Hemoglob 30 pg 27-31 Mean Corpuscular HGB Cone 34 g/dL 32-36 Redcell Distribution WDTH 14 % 10.5-15 Platelet Count 194 CUMM 150-450 Mean Platelet Volume 10.3 um3 7.4-10.4 Polysegmented Neutrophil 61 % 38-83 Band Neutrophil 6 % 0-8 Lymphocyte 22 % Low 25-47 Monocyte 9 % 0-13 Eosenophil 1 % 0-6 Atypical Lymph 1 % 0-6 Absolute Neutrophil Count 5.0 Anisocytosis SLIGHT Laboratory test finding 03/26/2009 Guillermina (Antinuclear NEGATIVE Negative Antibodies) Lyme Western Blot 03/26/2009 Lyme Disease Igg Western Negative Negative 52 Specialty Blot Lyme Disease Igm Western Blot Negative Negative 53 Lyme Disease Interpretation . () 54 Laboratory test finding 03/26/2009 CPK (Creatine Kinase) 93 U/L 0-200 C Reactive Protein 1.0 mg/dL High Less Than 0.5 Laboratory test finding 01/25/2009 Methylmalonic Acid 0.37 umol/L <= 0.40 55 Homocysteine 12 umol/L () 56 Laboratory test finding 01/13/2009 TSH 1.65 MIU/ML 0.34-5.60 LDH 172 U/L 95-185 Vitamin B12 And Folate Serum 01/13/2009 Vitamin B12 200 pg/mL 180-914 Folic Acid 12.7 NG/ML 2-16 1 [id number] 2 SEE RESULT BELOW Name: JUAN THOMAS : [address]: Arnel Shaikh MD Acct: [id number] Unit: [id number] AGE: 47 Location: [facility] Re09/27/17 SEX: M Status: JOVANNY HERNANDEZ SPEC: [id number] DAIN: 09/27/17-[address] [facility] [address]: Arnel Shaikh MD REQ: [id number] RECD: 09/28/17-1037 STATUS: SOUT _ ORDERED: Rain, LEVEL 3 COMMENTS: [id number] FINAL DIAGNOSIS Right hand, dorsal carpal, excision: -- Benign bone and cartilage with degenerative and reactive change. PRE-OPERATIVE DIAGNOSIS Right hand dorsal carpal boss GROSS DESCRIPTION The specimen is received in formalin labeled, Right Hand Dorsal Carpal Boss, and consists of a 2.3 x 1.3 by up to 0.4 cm aggregate of yellow-white irregular bone fragments with adherent white-pink fibrocartilaginous tissue. Nursing Informatics Specialist sections, one cassette following decalcification. MICROSCOPIC DESCRIPTION Signed (signature on file) Skye Rodriguez MD 03/13 1133 END OF REPORT * ML=Testing performed at Main Lab DEPARTMENT OF PATHOLOGY, [address] [place] [address] Bharathi Don M.D. Director [facility] # [id number] 3 [facility] Severe Sepsis and Septic Shock Management Bundle Measure requires all lactic acids initially measuring >2.0 mmol/L be repeated. 4 Please note the change in INR reference range effective 17. 5 Because ethnic data is not always readily available, this report includes an eGFR for both -Americans and non- Americans. The National Kidney Disease Education Program (NKDEP) does not endorse the use of the MDRD equation for patients that are not between the ages of 18 and 70, are , have extremes of body size, muscle mass, or nutritional status, or are non- or non-. According to the National Kidney Foundation, irrespective of diagnosis, the stage of the disease is based on the level of kidney function: Stage Description GFR(mL/min/1.73 m(2)) 1 Kidney damage with normal or decreased GFR 90 2 Kidney damage with mild decrease in GFR 60-89 3 Moderate decrease in GFR 30-59 4 Severe decrease in GFR 15-29 5 Kidney failure <15 (or dialysis) 6 [facility] Severe Sepsis and Septic Shock Management Bundle Measure requires all lactic acids initially measuring >2.0 mmol/L be repeated. 7 Specimen Lipemic. Result may not be valid. 8 Because ethnic data is not always readily available, this report includes an eGFR for both -Americans and non- Americans. The National Kidney Disease Education Program (NKDEP) does not endorse the use of the MDRD equation for patients that are not between the ages of 18 and 70, are , have extremes of body size, muscle mass, or nutritional status, or are non- or non-. According to the National Kidney Foundation, irrespective of diagnosis, the stage of the disease is based on the level of kidney function: Stage Description GFR(mL/min/1.73 m(2)) 1 Kidney damage with normal or decreased GFR 90 2 Kidney damage with mild decrease in GFR 60-89 3 Moderate decrease in GFR 30-59 4 Severe decrease in GFR 15-29 5 Kidney failure <15 (or dialysis) 9 Acute inflammation: >10.00 10 Therapeutic target for the treatment of diabetes Mellitus patients is <7% HBA1C, and in selective patients <6.0%.Please refer to [employer] Diabetic care guidelines for further information. 11 Because ethnic data is not always readily available, this report includes an eGFR for both -Americans and non- Americans. The National Kidney Disease Education Program (NKDEP) does not endorse the use of the MDRD equation for patients that are not between the ages of 18 and 70, are , have extremes of body size, muscle mass, or nutritional status, or are non- or non-. According to the National Kidney Foundation, irrespective of diagnosis, the stage of the disease is based on the level of kidney function: Stage Description GFR(mL/min/1.73 m(2)) 1 Kidney damage with normal or decreased GFR 90 2 Kidney damage with mild decrease in GFR 60-89 3 Moderate decrease in GFR 30-59 4 Severe decrease in GFR 15-29 5 Kidney failure <15 (or dialysis) 12 Normal Range 180 to 914 Indeterminate Range 145 to 180 Deficient Range <145 13 ADDITIONAL INFORMATION This test was developed and its performance characteristics determined by [facility] in a manner consistent with CLIA requirements. This test has not been cleared or approved by the U.S. Food and Drug Administration. Test Performed by: [facility] - [address] [id number] 14 ADDITIONAL INFORMATION This test was developed and its performance characteristics determined by [facility] in a manner consistent with CLIA requirements. This test has not been cleared or approved by the U.S. Food and Drug Administration. Test Performed by: [facility] - [address] [id number] 15 Normal Range 180 to 914 Indeterminate Range 145 to 180 Deficient Range <145 16 Because ethnic data is not always readily available, this report includes an eGFR for both -Americans and non- Americans. The National Kidney Disease Education Program (NKDEP) does not endorse the use of the MDRD equation for patients that are not between the ages of 18 and 70, are , have extremes of body size, muscle mass, or nutritional status, or are non- or non-. According to the National Kidney Foundation, irrespective of diagnosis, the stage of the disease is based on the level of kidney function: Stage Description GFR(mL/min/1.73 m(2)) 1 Kidney damage with normal or decreased GFR 90 2 Kidney damage with mild decrease in GFR 60-89 3 Moderate decrease in GFR 30-59 4 Severe decrease in GFR 15-29 5 Kidney failure <15 (or dialysis) 17 >100 to <200 pg/mL: likely compensated congestive heart failure (CHF) 200 to 400 pg/mL: likely moderate CHF >400 pg/mL: likely moderate to severe CHF 18 Because ethnic data is not always readily available, this report includes an eGFR for both -Americans and non- Americans. The National Kidney Disease Education Program (NKDEP) does not endorse the use of the MDRD equation for patients that are not between the ages of 18 and 70, are , have extremes of body size, muscle mass, or nutritional status, or are non- or non-. According to the National Kidney Foundation, irrespective of diagnosis, the stage of the disease is based on the level of kidney function: Stage Description GFR(mL/min/1.73 m(2)) 1 Kidney damage with normal or decreased GFR 90 2 Kidney damage with mild decrease in GFR 60-89 3 Moderate decrease in GFR 30-59 4 Severe decrease in GFR 15-29 5 Kidney failure <15 (or dialysis) 19 Normal Range 180 to 914 Indeterminate Range 145 to 180 Deficient Range <145 20 Because ethnic data is not always readily available, this report includes an eGFR for both -Americans and non- Americans. The National Kidney Disease Education Program (NKDEP) does not endorse the use of the MDRD equation for patients that are not between the ages of 18 and 70, are , have extremes of body size, muscle mass, or nutritional status, or are non- or non-. According to the National Kidney Foundation, irrespective of diagnosis, the stage of the disease is based on the level of kidney function: Stage Description GFR(mL/min/1.73 m(2)) 1 Kidney damage with normal or decreased GFR 90 2 Kidney damage with mild decrease in GFR 60-89 3 Moderate decrease in GFR 30-59 4 Severe decrease in GFR 15-29 5 Kidney failure <15 (or dialysis) 21 Acute inflammation: >10.00 22 [facility] Severe Sepsis and Septic Shock Management Bundle Measure requires all lactic acids initially measuring >2.0 mmol/L be repeated. 23 Because ethnic data is not always readily available, this report includes an eGFR for both -Americans and non- Americans. The National Kidney Disease Education Program (NKDEP) does not endorse the use of the MDRD equation for patients that are not between the ages of 18 and 70, are , have extremes of body size, muscle mass, or nutritional status, or are non- or non-. According to the National Kidney Foundation, irrespective of diagnosis, the stage of the disease is based on the level of kidney function: Stage Description GFR(mL/min/1.73 m(2)) 1 Kidney damage with normal or decreased GFR 90 2 Kidney damage with mild decrease in GFR 60-89 3 Moderate decrease in GFR 30-59 4 Severe decrease in GFR 15-29 5 Kidney failure <15 (or dialysis) 24 Desirable <150 Borderline high 150-199 High 200-499 Very High >500 25 Desirable <200 Borderline high 200-239 High >239 26 Low <40 Desirable: 40-60 High: >60 27 Desirable: <100 mg/dL Near Optimal: 100-129 mg/dL Borderline High: 130-159 mg/dL High: 160-189 mg/dL Very High: >189 mg/dL 28 >100 to <200 pg/mL: likely compensated congestive heart failure (CHF) 200 to 400 pg/mL: likely moderate CHF >400 pg/mL: likely moderate to severe CHF 29 Because ethnic data is not always readily available, this report includes an eGFR for both -Americans and non- Americans. The National Kidney Disease Education Program (NKDEP) does not endorse the use of the MDRD equation for patients that are not between the ages of 18 and 70, are , have extremes of body size, muscle mass, or nutritional status, or are non- or non-. According to the National Kidney Foundation, irrespective of diagnosis, the stage of the disease is based on the level of kidney function: Stage Description GFR(mL/min/1.73 m(2)) 1 Kidney damage with normal or decreased GFR 90 2 Kidney damage with mild decrease in GFR 60-89 3 Moderate decrease in GFR 30-59 4 Severe decrease in GFR 15-29 5 Kidney failure <15 (or dialysis) 30 Acute inflammation: >10.00 31 SEE RESULT BELOW Name: JUAN THOMAS : 1970 Attend Dr: Conchis Ramirez Acct: [id number] Unit: [id number] AGE: 45 Location: [facility] Re03/21/15 SEX: M Status: DEP ER SPEC: [id number] DAIN: 03/21/15-[address] [facility] [address]: Conchis Johnson DO REQ: [id number] RECD: 03/22/15-1220 STATUS: CECILIA COOK DR: Andrzej Mcarthur III, MD _ SOURCE: THROAT SPDESC: ORDERED: Throat Beta Str Procedure Result Verified Site Throat Beta Strep Culture Final 03/24/15- 0903 ML Negative For Group A Beta Streptococcus * ML - MAIN LAB ([facility]) . END OF REPORT * ML=Testing performed at Main Lab DEPARTMENT OF PATHOLOGY, [address] [place] [address] Bharathi Don M.D. Director [facility] # [id number] 32 Desirable <150 Borderline high 150-199 High 200-499 Very High >500 33 Desirable <200 Borderline high 200-239 High >239 34 Low <40 Desirable: 40-60 High: >60 35 Unable to calculate LDL as triglyceride is > 400 36 Specimen hemolyzed. Unable to perform test requested.~Reordered for specimen recollection. Sandy/ Naldo Specimen Lipemic. Result may not be valid. 38 Because ethnic data is not always readily available, this report includes an eGFR for both -Americans and non- Americans. The National Kidney Disease Education Program (NKDEP) does not endorse the use of the MDRD equation for patients that are not between the ages of 18 and 70, are , have extremes of body size, muscle mass, or nutritional status, or are non- or non-. According to the National Kidney Foundation, irrespective of diagnosis, the stage of the disease is based on the level of kidney function: Stage Description GFR(mL/min/1.73 m(2)) 1 Kidney damage with normal or decreased GFR 90 2 Kidney damage with mild decrease in GFR 60-89 3 Moderate decrease in GFR 30-59 4 Severe decrease in GFR 15-29 5 Kidney failure <15 (or dialysis) 39 Specimen hemolyzed. Unable to perform test requested. Reordered for specimen recollection. Sandy/DONTAE was called for recollect at 2021 on 02/27/14 by [id number] 40 Acute inflammation: >10.00 41 Please note: The following may produce a false positive D Dimer test: - Rheumatoid factor greater than 60 IU/ml - Plasma hemoglobin greater than 0.05 gm/dl - Bilirubin greater than 50 mg/dl - Lipids greater than 1000 mg/dl - FDP greater than 20 ug/ml 42 >100 to <200 pg/mL: likely compensated congestive heart failure (CHF) 200 to 400 pg/mL: likely moderate CHF >400 pg/mL: likely moderate to severe CHF [place] [facility] 43 Reference Range and Interpretation: TnI (ng/mL) Interpretation Less Than 0.03 ng/mL Not supportive of diagnosis of AK 0.03 - 0.50 ng/mL Indeterminate: suggest serial studies if clinically indicated. Greater than 0.5 ng/mL Consistent with diagnosis of AK 44 This individual DOES NOT have the factor V Leiden (R506Q) mutation. Although the factor V Leiden mutation is absent, the individual may have other genetic and environmental risk factors for thrombosis. If clinically indicated, suggest Coagulation Consultation 58040 (Thrombophilia Profile) to complete the evaluation for an inherited or acquired thrombosing disorder (i.e., thrombophilia). This test is a direct mutation analysis using PCR amplification, signal generation and release by cleavage of sequence specific alleles ([employer], [place], [place], [place]). 45 RESULT: Temo Franklin M.D., Ph.D. Test Performed by: [place] [address] Invoice Control Clerk: Ralph Chow III, M.D. 46 Because ethnic data is not always readily available, this report includes an eGFR for both -Americans and non- Americans. The National Kidney Disease Education Program (NKDEP) does not endorse the use of the MDRD equation for patients that are not between the ages of 18 and 70, are , have extremes of body size, muscle mass, or nutritional status, or are non- or non-. According to the National Kidney Foundation, irrespective of diagnosis, the stage of the disease is based on the level of kidney function: Stage Description GFR(mL/min/1.73 m(2)) 1 Kidney damage with normal or decreased GFR 90 2 Kidney damage with mild decrease in GFR 60-89 3 Moderate decrease in GFR 30-59 4 Severe decrease in GFR 15-29 5 Kidney failure <15 (or dialysis) 47 NON FASTING 48 Anion gap measurement may be of limited value in the presence of any alkalosis, especially in a combined acid base disorder. . 49 A metabolite of Naproxen, O-desmethylnaproxen, has been shown to interfere with the Jendrassik-Jarod method for measuring total bilirubin. Samples from patients who have taken Naproxen have shown spurious elevation in total bilirubin levels. 50 Because ethnic data is not always readily available, this report includes an eGFR for both -Americans and non- Americans. The National Kidney Disease Education Program (NKDEP) does not endorse the use of the MDRD equation for patients that are not between the ages of 18 and 70, are , have extremes of body size, muscle mass, or nutritional status, or are non- or non-. According to the National Kidney Foundation, irrespective of diagnosis, the stage of the disease is based on the level of kidney function: Stage Description GFR(mL/min/1.73 m(2)) 1 Kidney damage with normal or decreased GFR 90 2 Kidney damage with mild decrease in GFR 60-89 3 Moderate decrease in GFR 30-59 4 Severe decrease in GFR 15-29 5 Kidney failure <15 (or dialysis) 51 ---- RUN DATE: 01/09/11 [facility] NMI LIVE PAGE 1 RUN TIME: 1542 Specimen Inquiry RUN USER: INTERFACE -- Name: JUAN THOMAS Status: REG REF Re01/05/11 Age/Sex: 40/M Unit#: [id number] Location: [facility]. : 70 -- Specimen: [id number] SOUT Spec Date: 01/05/[address]: Varinder carrion MD Spec Type: SURGICAL P Received: 01/06/11-1154 Copies to: Andrzej wiley TURRET LATHE MACHINIST SPECIMEN LEFT INNER THIGH LESION HISTORY CLINICAL INFORMATION: Present for 5 years GROSS DESCRIPTION The specimen is received in formalin labelled Juan Thomas, Left Inner Thigh Lesion, and consists of a fragment of white tissue with a cauliflower like appearance measuring 1.4 x 1.0 x 1.0 cm. Bisected and submitted entirely in one cassette. DIAGNOSIS Skin, left inner thigh: Acrochordon with focal surface ulceration and acute inflammation. Signed Electronically by: BOBY BROWN 01/09/11 1542 -- -- DEPARTMENT OF PATHOLOGY, [address] [place] [address] [facility] Permit #[id number] Bharathi Don M.D. Director Boby Brown M.D. Mill Platform Supervisor Dir ya -- 52 IgG band(s) ([place]): p41 53 IgM band(s) ([place]): p23 54 Specific serologic response to B. burgdorferi is not detected, but cannot rule out early infection during which low or undetectable antibody levels to B. burgdorferi may be present. If clinically indicated, a new serum specimen should be submitted in 7-14 days. Western blot should only be ordered on specimens that are positive or equivocal by a FDA-licensed Lyme disease antibody screening test (e.g., EIA). CDC criteria require >=5 bands for IgG or >=2 bands for IgM for the Western blot to be considered positive. Test Performed by: [facility] of [facility] Med and Pathology [address] [place] [address] Invoice Control Clerk: Ralph Chow III, M.D. 55 Test Performed by: [facility] Pathology [address] [place] [address] Invoice Control Clerk: Ralph Chow III, M.D. 56 -- REFERENCE VALUE -- <=13 (Fasting) Test Performed by: [facility] Pathology [address] [place] [address] Invoice Control Clerk: Ralph Chow III, M.D. Procedures Date CPT Code Description Status 09/27/2017 39404 Excision Bone Cyst/Benign Tumor Carpal Bones Completed 09/27/2017 46507 Excision Bone Cyst/Benign Tumor Carpal Bones Completed 08/31/2017 85478 Inject/Drain Joint/Bursa Major Completed 11/03/2016 96263 Nerve Conduction 03-04 Studies Completed 11/03/2016 20400 Needle Electromyography Complete, Five Or More Muscles Completed Studied 09/21/2016 35375 Polysomnography Sleep Staging 4+ Parameters Completed 09/18/2016 34934 Inject/Drain Joint/Bursa Major Completed 09/07/2016 88896 Admin Of Inj Completed 09/01/2016 58592 Admin Of Inj Completed 08/25/2016 88705 Admin Of Inj Completed 08/11/2016 94168 Admin Of Inj Completed 08/04/2016 42253 Admin Of Inj Completed 07/28/2016 08671 Admin Of Inj Completed 07/21/2016 89315 Admin Of Inj Completed 07/14/2016 20902 Admin Of Inj Completed 02/01/2011 Diabetic Foot Exam Completed 01/09/2011 Diabetic Foot Exam Completed 10/14/2010 Diabetic Foot Exam Completed 01/13/2009 30212 EKG Tracing & Interpretation Completed Encounters Type Date Location Provider CPT E/M Dx Office Visit 09/07/2017 [place] [address] M79.641 8:00a Of [place] G56.02 Office Visit 08/31/2017 9:30a [place] [address] M25.512 C.MUlises M25.532 M25.522 M54.12 Office Visit 08/31/2017 11:20a [facility] Medicine Andrzej Mcarthur, 14781 K59.00 - Chip Cortes Office Visit 12/01/2016 9:40a [facility] Medicine Andrzej Mcarthur, 40692 G47.33 - Chip Cortes G47.00 Office Visit 11/10/2016 10:30a Pulmonology And Sleep Amaya Spaulding, 82479 G47.33 Services Of [facility] WALTER, RN, RAPID OUTSOLE STITCHER-BC G47.00 E66.01 Office Visit 11/03/2016 10:00a [facility] Internal Thanh Sabillon, 34113 M25.511 Medicine - [place] Cesar Cortes E66.01 J44.9 Office Visit 10/20/2016 3:40p [facility] Coy Sabillon M.D. 34569 M79.2 Medicine - [address] [address] M79.602 Office Visit 09/29/2016 1:45p [facility] [address] G47.33 Services Of [facility] E66.01 Office Visit 09/28/2016 10:00a [facility] Thanh Sabillon, 60184 M75.01 Medicine - [place] [address] M.DAnkita G47.33 D51.9 L23.9 F33.0 Office Visit 09/18/2016 9:30a [facility] Carolnie Mcginnis M.D. 89497 M25.511 [facility] M75.01 S46.011A Office Visit 09/07/2016 9:00a [facility] Internal Thanh Sabillon 36782 G47.33 Medicine - [address] M.DAnkita F33.0 M25.511 M79.672 D51.9 Office Visit 09/01/2016 10:15a [facility] [place] [address] G47.9 Services Of [facility] J34.2 Office Visit 08/25/2016 2:20p [facility] Thanh Sabillon M.D. 63493 F33.0 Medicine - [address] D51.9 G47.33 G56.01 M25.511 Office Visit 08/11/2016 9:20a [facility] Thanh Sabillon M.D. 31247 F33.0 Medicine - [address] M25.511 G47.30 D51.9 Office Visit 07/28/2016 8:20a [facility] Thanh Sabillon 11108 R53.83 Medicine - [address] [address] Jeff.DAnkita D51.9 R31.9 K62.5 Z23 F33.0 Office Visit 07/14/2016 10:40a [facility] Thanh Sabillon M.D. 63524 D51.9 Medicine - [address] R53.83 Office Visit 07/07/2016 11:20a [facility] Coy Sabillon 19035 R53.83 Medicine - [address] Jeff.DAnkita K21.9 G47.33 K62.5 Office Visit 05/04/2016 4:00p [facility] Medicine Andrzej Mcarthur, 60960 M54.5 - Chip Cortes K59.00 R31.9 Office Visit 03/06/2016 11:20a [facility] Andrzej Mcarthur, 54067 M25.511 - [place] Sophia Office Visit 05/01/2014 9:00a [facility] Medicine Andrzej Mcarthur, 62263 465.9 - Carlo Cortes Office Visit 04/29/2014 11:20a [facility] Andrzej Mcarthur, 22212 465.9 - [place] M.D. 787.01 Office Visit 03/03/2014 2:00p [facility] Andrzej Mcarthur, 56155 782.3 - [place] M.D. 780.57 530.81 V77.91 V77.1 Office Visit 10/23/2013 10:40a [facility] Andrzej Mcarthur, 17603 723.1 - Carlo Cortes Office Visit 09/02/2013 11:20a [facility] Andrzej Mcarthur, 23278 465.9 - Carlo Cortes 379.91 Office Visit 07/08/2013 4:30p [facility] Zonia Rizzo, N.P. 03707 461.0 - [place] Office Visit 07/02/2013 9:00a [facility] Andrzej Mcarthur, 25370 780.79 - [place] M.DAnkita 530.81 V04.81 780.57 Office Visit 01/22/2013 9:40a [facility] Andrzej Mcarthur, 43478 V58.32 - Carlo Cortes Office Visit 05/22/2012 1:00p [facility] Andrzej Mcarthur, 34480 530.81 - [place] M.Areli 701.9 V04.81 Office Visit 03/20/2012 3:40p [facility] Andrzej Mcarthur, 65772 780.57 - [place] M.Areli 796.2 Office Visit 02/27/2012 1:40p [facility] Andrzej Mcarthur, 15987 465.9 - [place] MDee Office Visit 12/13/2011 2:40p [facility] Thanh Sabillon 91663 462 - [place] M.Areli Office Visit 11/03/2011 2:45p [facility], 43759 461.0 - [place] N.P. Office Visit 03/14/2011 11:30a DO Not Use [facility], 16099 949.0 [place] N.P. Office Visit 01/05/2011 1:00p DO Not Use [facility], 27427 461.0 [place] N.P. Office Visit 12/29/2010 4:00p DO Not Use [facility], 97689 719.47 [place] N.P. 701.9 Office Visit 09/05/2010 9:00a DO Not Use [facility] Andrzej Mcarthur, 80590 724.2 Catherine Cortes Office Visit 01/27/2010 3:00p DO Not Use [facility] Andrzej Mcarthur, 92848 782.1 Catherine Cortes 719.47 307.49 Office Visit 12/02/2009 2:00p DO Not Use [facility] Pedro Paul M.D. 26887 780.79 [facility] Office Visit 11/08/2009 10:00a DO Not [place] [address] 719.47 [facility] Office Visit 10/08/2009 3:30p DO Not [place] [address] 787.01 [facility] 009.3 530.81 782.0 Office Visit 09/22/2009 10:40a DO Not Use [facility] [place] [address] 724.2 Catherine Cortes 465.9 356.9 Office Visit 09/02/2009 9:45a DO Not Use [facility] Pedro Paul M.D. 46573 724.2 [place] Office Visit 08/24/2009 3:40p DO Not Use [facility] [place] 16387 789.9 Catherine Cortes 311 Office Visit 07/21/2009 9:40a DO Not Use [facility] [place] 69645 493.90 Catherine Cortes 477.9 V04.81 Office Visit 07/05/2009 2:40p DO Not Use [facility] ThanShirley hernandez M.DAnkita [address] [address] [place] 327.01 784.0 307.49 V04.81 Office Visit 06/10/2009 3:20p DO Not Use [facility] ThanShirley hernandez M.DAnkita [address]807 [address] [place] 327.01 307.49 Office Visit 05/05/2009 9:00a DO Not Use [facility] At ThanShirley hernandez, 10798 356.9 [place] M.D. 311 780.79 Office Visit 03/31/2009 10:20a DO Not Use [facility] At ThanShirley hernandez, 89544 356.9 [place] M.D. 311 Office Visit 03/03/2009 11:20a DO Not Use [facility] At ThanShirley hernandez, 66773 356.9 [place] M.D. 784.0 Office Visit 01/13/2009 10:00a DO Not Use [facility] At ThanShirley hernandez, 64354 356.9 [place] M.D. 784.0 780.79 327.01 Plan of Care Future Appointment(s):11/23/2017 11:15 am - Arnel Shaikh MD at [facility]10/19/2017 9:30 am - Onelia Light MD at [facility]10/09/2017 - Arnel Shaikh, MDM25.732 Osteophyte, left wristFollow up: Follow up: 10-14 days dpyjzeS21.02 Carpal tunnel syndrome, left upper limb
[2017-10-26] MEDS ORDERED: Metoclopramide IV* 5 MG/ML 2 ML VIAL IV ONE (21:59)
[2017-10-26] MEDS ORDERED: diPHENhydraMINE IV* 50 MG/ML 1 ml VIAL (BENADRYL) IV ONE (21:59)
[2017-10-26] MEDS ORDERED: Meclizine TAB* 12.5 MG PO ONE (21:59)
[2017-10-26] MEDS ORDERED: NS 0.9% 1000 ML* 1,000 ML IV ONE (21:59)
[2017-10-27 00:06] VITALS: BP 152/105
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
--- NOTE | 2017-10-27 07:26 | RAD ---
HISTORY: Occipital headache, vertigo COMPARISONS: March 24, 2008 TECHNIQUE: Multiple contiguous axial CT scans were obtained of the head without intravenous contrast. FINDINGS: HEMORRHAGE/INFARCT: There is no hemorrhage or acute infarct. MASSES/SHIFT: There is no mass or shift. EXTRA-AXIAL SPACES: There are no extra-axial fluid collections. SULCI AND VENTRICLES: The sulci and ventricles are normal in size and position for the patient's stated age. CEREBRUM: There are no focal parenchymal abnormalities. BRAINSTEM: There are no focal parenchymal abnormalities. CEREBELLUM: There are no focal parenchymal abnormalities. VESSELS: The vessels are grossly normal. PARANASAL SINUSES: The paranasal sinuses are clear. ORBITS: The orbits are unremarkable. BONES AND SOFT TISSUE: No bone or soft tissue abnormalities are noted. OTHER: None IMPRESSION: NO ACUTE INTRACRANIAL PATHOLOGY.
== END 2017-10-27 00:04 | disposition home or self-care (01) ==
LOC: ED 21:09
DX: G44.209 Tension-type headache, unspecified, not intractable (principal); S16.1XXA Strain of muscle, fascia and tendon at neck level, initial encounter; Z88.3 Allergy status to other anti-infective agents; Z88.5 Allergy status to narcotic agent; Z88.8 Allergy status to other drugs, medicaments and biological substances
CPT/HCPCS: 70450; 96361; 96374; 96375; 99284; A9270-GY; J1200; J2765

== ENCOUNTER 2018-01-02 01:55 | Emergency (ER) | payer OTHER ==
[2018-01-02] MEDS ORDERED: NS 0.9% 1000 ML* 1,000 ML IV ONE (02:53)
[2018-01-02] MEDS ORDERED: Metoclopramide IV* 5 MG/ML 2 ML VIAL IV SLOW PU ONE (02:54)
[2018-01-02] MEDS ORDERED: Pantoprazole IV* 40 MG IV ONE (02:54)
[2018-01-02] MEDS: Morphine VIAL* 4 MG/ML VIAL (1 ml vial) IV ONE ×2 (03:06→03:07)
[2018-01-02] MEDS ORDERED: Ketorolac INJ* 30 MG/ML 1 ML VIAL IV PUSH ONE (03:09)
[2018-01-02 03:16] LABS: ABS Basophils 0.1 10^3/ul (0-0.2); ABS Eosinophils 0.1 10^3/ul (0-0.6); ABS Lymphocytes 2.1 10^3/ul (1.0-4.8); ABS Monocytes 0.6 10^3/ul (0-0.8); ABS Neutrophils 5.3 10^3/ul (1.5-7.7); ABS Nucleated RBC 0 10^3/ul; Eosinophil % 1.2 % (0-6); Hematocrit 45 % (42-52); Hemoglobin 15.4 g/dl (14.0-18.0); Lymphocyte % 25.7 % (25-47); Mean Corpuscular HGB Conc 34 g/dl (31-36); Mean Corpuscular Hemoglobin 30 pg (27-31); Mean Corpuscular Volume 88 fL (80-94); Mean Platelet Volume 9.4 um3 (7.4-10.4); Nucleated Red Blood Cells % 0; Platelet Count 216 10^3/ul (150-450); Red Blood Count 5.09 10^6/ul (4.0-5.4); Red Cell Distribution Width 14 % (10.5-15); White Blood Count 8.2 10^3/ul (3.5-10.8)
[2018-01-02 03:34] LABS: EGFR Non-African American 108.3 (>60)
[2018-01-02 04:52] VITALS: BP 120/77
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
== END 2018-01-02 04:53 | disposition home or self-care (01) ==
LOC: ED 01:55
DX: R10.9 Unspecified abdominal pain (principal); R11.0 Nausea; Z88.5 Allergy status to narcotic agent; Z88.8 Allergy status to other drugs, medicaments and biological substances; Z88.3 Allergy status to other anti-infective agents
CPT/HCPCS: 36415; 80053; 82150; 83605; 83690; 83735; 85025; 86140; 96374; 96375; 99284; J1885; J2270; J2765

== ENCOUNTER 2018-01-17 11:14 | Emergency (ER) | payer OTHER ==
[2018-01-17 11:31] VITALS: BP 139/96
[2018-01-17] MEDS ORDERED: Tetan/Diph/Pertus SYR(Tdap)* 0.5 ML SYR(BOOSTRIX) use SYR IM ONE (11:46)
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
== END 2018-01-17 12:14 | disposition home or self-care (01) ==
LOC: UCEAST 11:14
DX: S81.831A Puncture wound without foreign body, right lower leg, initial encounter (principal); L03.115 Cellulitis of right lower limb; R03.0 Elevated blood-pressure reading, without diagnosis of hypertension; Z88.1 Allergy status to other antibiotic agents; Z88.5 Allergy status to narcotic agent; Z91.048 Other nonmedicinal substance allergy status; W20.8XXA Other cause of strike by thrown, projected or falling object, initial encounter; Y92.9 Unspecified place or not applicable
CPT/HCPCS: 90471; 90715; 99212; G0463

== ENCOUNTER → 2018-01-23 07:12 | Day surgery (SDC) | payer OTHER ==
--- NOTE | 2018-01-17 13:19 | HP ---
PREOPERATIVE HISTORY AND PHYSICAL: DATE OF SURGERY: 01/23/18 DATE OF OFFICE VISIT: 01/17/18 ATTENDING PHYSICIAN: Dr. Onelia Light.* (DICTATED BY ERICA BROUSSARD) PROCEDURE: Left shoulder arthroscopic rotator cuff repair, decompression debridement, subpectoral biceps tenodesis, possible arthroscopic biceps. CHIEF COMPLAINT: Left shoulder pain. HISTORY OF PRESENT ILLNESS: Juan is a 47-year-old male who presents to the clinic for left shoulder pain due to rotator cuff tear and biceps tendonitis. He failed conservative measures and therefore agreed to undergo a left shoulder arthroscopic rotator cuff repair, decompression debridement, sub pectoral biceps tenodesis and possible arthroscopic biceps with Dr. Light on 01/23/18. The patient also reports that yesterday he had an injury where roberto nail went into his right calf. He does not remember his last tetanus shot was. He has not seen any doctor for the injury. PAST MEDICAL HISTORY: Osteoarthritis, diverticulosis, depression, GERD, obstructive sleep apnea. PAST SURGICAL HISTORY: Left knee scope and right carpal tunnel release, hernia repair, and right wrist surgery. Denies prior, complications with anesthesia. MEDICATIONS: Butalbital/acetaminophen/caffeine 50/325/40 mg 1 to 2 every 4 hours for migraines max 6 tabs a day. ALLERGIES: MORPHINE, LEVAQUIN, TRAMADOL FAMILY HISTORY: Positive for diabetes, heart disease, hypertension, stroke, cancer, RA. He has a dad and brother with history of DVT and PE. They were positive for factor V Leiden and the patient is not. His brother has been a vena cava filter. SOCIAL HISTORY: He lives with his spouse. He drives a taxi. He denies tobacco or alcohol use. He is right hand dominant. REVIEW OF SYSTEMS: A 14-point review of systems was reviewed with the patient. Positive for current complaint, otherwise negative. Denies fever, chills, chest pain, shortness of breath, denies history of DVT or PE. He attested negative for factor V. He denies any bleeding disorders, history of MRSA, hep C or HIV. PHYSICAL EXAMINATION GENERAL: A 47-year-old well-developed, well-nourished male in no acute distress. Alert and oriented x3. Appropriate mood and affect. Appropriate balance and coordination of the upper extremities. VITAL SIGNS: Height 66, weight 270, pulse 80, blood pressure 152/80, temperature 96.4, BMI 43.7. HEENT: Normocephalic, atraumatic. PERRLA. NECK: Supple. Clear. PULMONARY: Lungs clear to auscultation bilaterally. No wheezing, rhonchi, or rales. CARDIO: Regular rate and rhythm. S1 and S2. No murmurs, gallops, or rubs. ABDOMEN: Positive bowel sounds, soft, nontender. NEURO: Alert and oriented x3. Cranial nerves grossly intact. Sensation is intact to light touch. MUSCULOSKELETAL: Left upper extremity: Skin is intact. No warmth or erythema. Tender to palpation over the subacromial space and the bicipital groove. Forward flexion to 120, passively able to move past external rotation of 50. +4/5 strength rotator cuff testing was obtained. Positive Andriy's, Speed's, Jimenez-Chalo, [place]'s, positive impingement; +2 radial pulse. Sensation is intact to light touch distally. STUDIES: MRI of the left shoulder revealed high grade partial thickness bursal - sided tear with retraction and downward sloping acromion, fluid in the bicipital groove. IMPRESSION: Left shoulder rotator cuff tear and biceps tendonitis. PLAN: The patient is scheduled to undergo left shoulder arthroscopic rotator cuff repair, decompression, debridement, subpectoral biceps tenodesis and possible arthroscopic biceps with Dr. Light on 01/23/18. He will follow up in 10 to 14 days postop for followup and suture removal. Oxycodone will be used for postop pain management and Keflex for antibiotic prophylaxis. The patient was encouraged to go to urgent care to get a tetanus shot due to the recent nail injury prior to surgery. ERICA BROUSSARD [id number]/[facility] #: [id number] [facility]ICAL CENTERJames
[~2018-01-23 07:12] MED LIST changes: +Bupivacaine 0.5% SDV PF* 30ML VIAL ONE; +Dexamethasone IV* 4 MG/ML 1 ML (4 MG) ONE; -Famotidine IV* 10 MG/ML 2 ML (20 mg) IV ONE; -Famotidine IV* 10 MG/ML 2 ML (20 mg) ONE; +Lidocaine 2% PF * 5 ML VIAL ONE; -Metoclopramide TAB* 10 MG ONE; -Metoclopramide TAB* 10 MG PO ONE; +Midazolam* 1 MG/ML 2 ML VIAL (2 MG) ONE; +Naloxone* 0.4 MG/ML 1 ML VIAL IV PRN; +Ondansetron SYRINGE* 4 MG/2 ML SYRINGE (from 40mg/20ml vial) IV PRN; +Propofol* 10 MG/ML 20 ML BTL IV PUSH ONE; +ROPIVACAINE 5 MG/ML 30 ML BTL (0.5%) ONE; +Succinylcholine* 20 MG/ML 10 ML VIAL ONE; +ceFAZolin 2 GM PREMIX (*) 2 GM/50 ML BAG IVPB ONE; +fentaNYL* 50 MCG/ML 2 ML VIAL (100 MCG VIAL) ONE
[2018-01-23 12:49] VITALS: BP 135/96
--- NOTE | 2018-01-24 21:12 | OP ---
DATE OF OPERATION: 01/23/18 - [facility] DATE OF : 70 SURGEON: Onelia Light MD FISH INSPECTOR: ERICA Jean-Baptiste ANESTHESIOLOGIST: Dr. Escalante. ANESTHESIA: General interscalene block. PRE-OP DIAGNOSES: Left shoulder high-grade partial thickness rotator cuff tear with bicipital tendonitis and superior labral tear. POST-OP DIAGNOSES: Left shoulder high-grade partial thickness rotator cuff tear with bicipital tendonitis and superior labral tear. OPERATIVE PROCEDURE: Left shoulder arthroscopy with: 1. Limited glenohumeral debridement. 2. Subacromial decompression with acromioplasty. 3. Rotator cuff repair in double row fashion of the supraspinatus tendon. 4. Subpectoral biceps tenodesis. COMPLICATIONS: None. ESTIMATED BLOOD LOSS: Minimal. INDICATIONS: Juan Thomas is a 47-year-old male who has had persistent shoulder pain and had been going on for some time. He has failed conservative management. He is diagnosed with a partial thickness tear of his shoulder. He has elected to proceed with surgical treatment. Risks and benefits were discussed at length and included, but not limited to bleeding, infection, damage to nerves, vessels, surrounding structures, wound nonhealing, persistent pain, need for surgery, scarring, stiffness, incomplete relief of symptoms, risks of anesthesia. DESCRIPTION OF PROCEDURE: The patient was greeted in the preoperative area by the attending surgeon. The correct extremity was marked and the consent was confirmed. The patient then underwent interscalene nerve block by anesthesiologist after which he was brought back to the operating suite, placed in supine position on the operating table. He then underwent general anesthesia with endotracheal intubation. He was then appropriately positioned in the right lateral decubitus position with an axillary roll. All bony prominences were padded. He was secured with a pegboard. His left arm was draped unsterile with 10 pounds of traction. The left shoulder was then prepped and draped in the usual sterile fashion beginning with chlorhexidine soap, scrub , and alcohol wipe and a final prep with ChloraPrep. After appropriate surgical pause indicating site, side, procedure, administration of antibiotics, the posterolateral portal was made sharply with 11 blade. The scope was introduced into the joint and the joint was examined. There were grade 0 change in the glenohumeral joint. Inferior recess was intact and had abundant synovitis and erythema. There is synovitis and erythema throughout the entire joint. There was SLAP type 2 tear with damage to the rogelio and subluxation of the biceps. the undersurface of the subscapularis, but this is a small probably 5% or less tear. The anterior portal was made in an outside fashion. The shaver was used to debride back to anterior superior labrum. The undersurface of the subscapularis was also debrided back. The biceps was then tenotomized for later tenodesis. The undersurface of the rotator cuff was tagged with a PDS suture as there was partial thickness tearing to identify whether there is tear proximally. Once the intra-articular work was done, attention was directed to the subacromial space. The scope was placed in the subacromial space. Lateral portal was made in an outside in fashion. There was abundant synovitis present and this was debrided back using shaver. The undersurface of the acromion was skeletonized using electrocautery device. There was a downward sloping of the acromion with a [id number] spur. This was debrided back using a 4-0 oval ashley. This allowed for more room for the rotator cuff as well. Once this was taken back and the debridement was complete, attention was directed to the rotator cuff. The cuff was carefully probed with a blunt probe and was found to be partial thickness tearing on the bursal side as well, which corroborated on the MRI. At this point, the small area of the anterior superior aspect of the supraspinatus was taken down using the 11 blade. Then the shaver was used to debride back the rotator cuff. The greater tuberosity was skeletonized using the shaver, the ashley as well as the rasp to allow for good bony bleeding bed. After this was done, the cuff was carefully mobilized to make sure that it covered the footprint appropriately. One 4.75 Healicoil was placed in the medial row. The sutures were passed in a horizontal mattress configuration and tied down. Suture strands were then passed through a MultiFix anchor that was placed laterally for lateral row fixation and double row fixation. Final images were obtained. The wounds were copiously irrigated with sterile saline. Attention was directed to the biceps. The bed was airplaned towards the left side. The anterior aspect of the shoulder was prepped again using ChloraPrep. A 15-blade was used to make an incision in line with the biceps tendon. Soft tissues were carefully dissected until the pec fascia was identified and the remainder of the dissection was done bluntly. Pec was elevated. The bicipital groove was palpated. The biceps was brought through the wound and found to have abundant synovitis and inflammation. Groove was then prepared in the usual fashion with electrocautery, the red ball rasp and the osteotome. Then, the Q-Fix guide was then drilled unicortically and the Q-Fix was deployed with excellent purchase. Sutures were then passed through the tendon approximately 1 cm proximal to the musculotendinous junction in a Fabrice-Gage type configuration. The excess biceps was excised and the biceps was shuttled back into the wound and tied down. Once it was secured, the wounds were copiously irrigated with sterile saline. The anterior wound was closed in layers with 2- 0 Vicryl, 3-0 Monocryl. The portals were closed with 3-0 nylon. Sterile dressings were applied. The anterior wound was injected with 15 cc of 0.5% Marcaine plain. A Cryo/Cuff was placed. UltraSling was placed. He was awoken from anesthesia and transferred to PACU in stable condition. POSTOPERATIVE PLAN: He will be nonweightbearing. He will be in a sling for 6 weeks. He will be discharged on pain medications and antibiotics. DVT prophylaxis considered, but deferred due to no previous personal or family history. I will see the patient back in 14 days. [id number]/[facility] #: [id number] KAREN
== END | disposition home or self-care (01) ==
LOC: OR 07:12
PROVIDERS: ATTEND Orthopaedic Surgery
DX: M75.112 Incomplete rotator cuff tear or rupture of left shoulder, not specified as traumatic (principal); M75.22 Bicipital tendinitis, left shoulder; S43.432A Superior glenoid labrum lesion of left shoulder, initial encounter; K57.90 Diverticulosis of intestine, part unspecified, without perforation or abscess without bleeding; M19.90 Unspecified osteoarthritis, unspecified site; F32.9 Major depressive disorder, single episode, unspecified; K21.9 Gastro-esophageal reflux disease without esophagitis; G47.33 Obstructive sleep apnea (adult) (pediatric); Z88.5 Allergy status to narcotic agent; Z88.8 Allergy status to other drugs, medicaments and biological substances; X58.XXXA Exposure to other specified factors, initial encounter
CPT/HCPCS: C1713; C1776; J0330; J0690; J1100; J2250; J2704; J2795; J3010

== ENCOUNTER 2018-03-01 17:23 | Emergency (ER) | payer SELFPAY ==
[2018-03-01] MEDS ORDERED: Ibuprofen TAB* 800 MG PO ONE (18:37)
[2018-03-01] MEDS ORDERED: Ondansetron ODT TAB* 4 MG PO ONE (18:37)
[2018-03-01] MEDS ORDERED: oxyCODONE TAB* 5 MG TAB PO ONE (18:38)
[2018-03-01] MEDS ORDERED: Mupirocin 2% OINT* TUBE TOPICAL ONE (18:38)
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
[2018-03-01 20:03] VITALS: BP 154/60
== END 2018-03-01 20:02 | disposition home or self-care (01) ==
LOC: ED 17:23
DX: T22.112A Burn of first degree of left forearm, initial encounter (principal); T31.0 Burns involving less than 10% of body surface; X12.XXXA Contact with other hot fluids, initial encounter; Y93.G1 Activity, food preparation and clean up; Y92.9 Unspecified place or not applicable; Y99.9 Unspecified external cause status; R73.03 Prediabetes; G47.30 Sleep apnea, unspecified; K21.9 Gastro-esophageal reflux disease without esophagitis; G43.909 Migraine, unspecified, not intractable, without status migrainosus; R56.9 Unspecified convulsions; F90.9 Attention-deficit hyperactivity disorder, unspecified type; F41.9 Anxiety disorder, unspecified; F32.9 Major depressive disorder, single episode, unspecified; Z88.1 Allergy status to other antibiotic agents; Z88.5 Allergy status to narcotic agent; Z82.49 Family history of ischemic heart disease and other diseases of the circulatory system; Z83.3 Family history of diabetes mellitus
CPT/HCPCS: 99281; A9270-GY

== ENCOUNTER 2018-11-05 21:02 | Inpatient (IN) | payer OTHER ==
[2018-11-06] MEDS ORDERED: Ketorolac INJ* 30 MG/ML 1 ML VIAL IV PUSH ONE (00:09)
[2018-11-06] MEDS ORDERED: Ondansetron INJ* 2 MG/ML VIAL IV ONE (00:09)
[2018-11-06] MEDS ORDERED: HYDROmorphone INJ1* 1 MG/ML SYRINGE IV SLOW PU ONE (00:09)
[2018-11-06] MEDS ORDERED: NS 0.9% 1000 ML** 2,000 ML IV ONE (00:09)
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
[2018-11-06 00:50] LABS: ABS Basophils 0.1 10^3/ul (0-0.2); ABS Eosinophils 0 10^3/ul (0-0.6); ABS Lymphocytes 1.7 10^3/ul (1.0-4.8); ABS Monocytes 1.2 10^3/ul (0-0.8); ABS Nucleated RBC 0 10^3/ul; Eosinophil % 0.3 %; Hematocrit 47 % (42-52); Hemoglobin 15.6 g/dl (14.0-18.0); Lymphocyte % 11.6 %; Mean Corpuscular HGB Conc 33 g/dl (31-36); Mean Corpuscular Hemoglobin 29 pg (27-31); Mean Corpuscular Volume 87 fL (80-94); Mean Platelet Volume 9.9 fL (7.4-10.4); Nucleated Red Blood Cells % 0.1; Platelet Count 228 10^3/ul (150-450); Red Blood Count 5.45 10^6/ul (4.00-5.40); Red Cell Distribution Width 14 % (10.5-15)
[2018-11-06 01:31] LABS: Albumin 4.5 g/dL (3.2-5.2); Calcium 9.5 mg/dL (8.6-10.3); Potassium 4.4 mmol/L (3.5-5.0); Total Bilirubin 0.8 mg/dL (0.2-1.0)
[2018-11-06 01:37] LABS: Albumin/Globulin Ratio 1.8 (1-3); BUN/Creatinine Ratio 18.1 (8-20); C Reactive Protein 9.54 mg/L (<8.01); EGFR Non-African American 116.5 (>60); Globulin 2.5 g/dL (2-4)
[2018-11-06] MEDS ORDERED: Iodixanol* (CONTRAST) 320 MG/ML 100 ML SDV IV ONE (03:41)
[2018-11-06 05:05] LABS: Urine Appearance Clear; Urine Bacteria Absent (Absent); Urine Bilirubin Negative (Negative); Urine Blood 1+ (Negative); Urine Color Yellow; Urine Glucose Negative (Negative); Urine Ketones Negative (Negative); Urine Nitrite Negative (Negative); Urine Protein Negative (Negative); Urine Red Blood Cell 1+(3-5/hpf) (Absent); Urine Specific Gravity > 1.060 (1.010-1.030); Urine Squamous Epithelial Cell Present (Absent); Urine Urobilinogen Positive (Negative); Urine White Blood Cell Absent (Absent)
[2018-11-06] MEDS: fentaNYL* 50 MCG/ML 2 ML VIAL (100 MCG VIAL) IV SLOW PU PRN ×3 (05:09→10:21)
[2018-11-06] MEDS ORDERED: Piperacillin/Tazobac ADVAN(*) 3.375 GM in NS 0.9% 100 ML* 100 ML IVPB ONE (06:32)
--- NOTE | 2018-11-06 08:00 | ED ---
Progress - Progress Note Progress Note: This pt was signed out by Dr. Hensley at shift change, pending disposition, awaiting gallbladder US. Gallbladder US, as read by radiologist IMPRESSION: Cholelithiasis with mild gallbladder wall thickening and positive sonographic Hurt sign concerning for acute cholecystitis. Dr. Almonte has reviewed this report. Re-Evaluation - Re-Evaluation First Eval Re-Evaluation Time: 08:16 Comment: Pt reports abd pain x3 days, last night his pain became severe with nausea and vomiting. He notes hx of HTN without medications. Course/Dx - Course Course Of Treatment: Pt was signed out by Dr. Hensley, pending disposition, awaiting gallbladder US. US shows cholelithiasis with mild gallbladder wall thickening and positive sonographic Hurt sign concerning for acute cholecystitis. I discussed the case with Dr. Vidales, surgeon, who accepts the pt for surgery. - Diagnoses Provider Diagnoses: Acute cholecystitis - Provider Notifications Discussed Care Of Patient With: Varinder Vidales Time Discussed With Above Provider: 08:17 Instructed by Provider To: Other - Discussed the case with Dr. Vidales, surgeon, who will come see the pt in the ED. Discharge - Sign-Out/Discharge Documenting (check all that apply): Patient Departure - [place] [facility]-Out Receiving patient FROM: Delta Hensley Patient Received Moderate/Deep Sedation with Procedure: No - Discharge Plan Condition: Stable Disposition: ADMITTED TO [facility] - Billing Disposition and Condition Condition: STABLE Disposition: Admitted to [facility] - Attestation Statements Document Initiated by Jairo: Yes Documenting Scribe: Zulema Graf Provider For Whom Scribe is Documenting (Include Credential): Candido Almonte MD Scribe Attestation: Zulema Chirinos, scribed for Candido Almonte MD on 11/06/18 at 1647. Scribe Documentation Reviewed: Yes Provider Attestation: The documentation as recorded by the Zulema parker accurately reflects the service I personally performed and the decisions made by me, Candido Almonte MD Status of Scribe Document: Viewed
[2018-11-06] MEDS ORDERED: Ondansetron INJ* 2 MG/ML VIAL IV PRN (09:15)
[2018-11-06] MEDS ORDERED: HYDROmorphone INJ* 0.5 MG/0.5 ML SYRINGE IV SLOW PU PRN (09:17)
[2018-11-06] MEDS ORDERED: Piperacillin/Tazobactam VIAL*) 3.375 GM in NS 0.9% 100 ML* 100 ML IVPB SCH (10:00)
--- NOTE | 2018-11-06 10:23 | HP ---
CC: Dr. Andrzej Mcarthur * HISTORY AND PHYSICAL: DATE OF ADMISSION: 11/06/18 HISTORY OF PRESENT ILLNESS: ER contacted me regarding Mr. Thomas, a 48- year- old gentleman, who presented with acute onset of upper abdominal right upper quadrant pain. It started at 4 a.m. yesterday. The patient soon had nausea and vomiting with retching afterwards and stayed home. He thought it would improve as it had in the past, but this time it just continued to worsen and the patient presented to the emergency room. The patient denies any radiation of the pain. He still continues to have pain. It is alleviated with narcotics and rest. The patient describes having similar symptoms in the past with right upper quadrant pain, nonradiating, but without nausea or vomiting. He felt this was likely a worsening reflux which he does suffer with. PAST MEDICAL HISTORY: 1. Hypertension. 2. Gastroesophageal reflux disease. 3. Obstructive sleep apnea. 4. Depression. 5. Arthritis. PAST SURGICAL HISTORY: 1. Open umbilical hernia repair with mesh. 2. Shoulder surgery. 3. Carpal tunnel release. 4. Left knee surgery. MEDICATIONS: Omeprazole. ALLERGIES: Allergy list reviewed. The patient states he can take narcotics but they do cause him to itch. FAMILY HISTORY: Noncontributory. SOCIAL HISTORY: He lives with his family. He is a nonsmoker. 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 REVIEW OF SYSTEMS: No fevers or chills. No shortness of breath. Obstructive sleep apnea as described. No cardiac disease. Gastroesophageal reflux as described. No dysuria. Urine has been dark in quality. He has no appetite. Last bowel movement was 2 days ago and was normal. No bleeding or clotting disorders. No history of DVTs or PE. PHYSICAL EXAMINATION GENERAL: He is alert and oriented x3, in mild distress. VITAL SIGNS: He has been afebrile in the hospital. Blood pressure 142/100, pulse rate 60. The patient has a BMI of 44. HEAD, EARS, EYES, NOSE, AND THROAT: Normocephalic, atraumatic. Sclerae anicteric. Mucous membranes are dry. LUNGS: Clear. ABDOMEN: Soft, obese. Tender mostly in the right side with positive Hurt sign. No evidence of hernias. A well-healed surgical incision at the umbilicus. RECTAL: Not performed. EXTREMITIES: Within normal limits. DIAGNOSTIC STUDIES/LAB DATA: Labs reviewed, show white count of 15 with no left shift. Chemistry panel shows an elevated lactic acid and mildly elevated CRP with normal LFTs. Urinalysis shows blood but negative for nitrites and positive for urobilinogen. CAT scan reviewed, report as well as the images. No free fluid, no free air, normal appearing bowel. Gallstones in the gallbladder without any significant inflammation. Ultrasound report reviewed and consistent with gallbladder wall thickening, but no pericholecystic fluid. IMPRESSION: 1. Acute cholecystitis. 2. Morbid obesity. 3. Metabolic syndrome. PLAN/RECOMMENDATIONS: I believe the patient would benefit from admission, n.p.o. status, IV fluids, IV antibiotics, and surgery. I outlined briefly the details of a laparoscopic cholecystectomy. The patient wishes to proceed in this fashion. He understands the plan going forward and that my partner will be doing the procedure. He is scheduled for tomorrow. I do not believe he should go home with this diagnosis and he would benefit from IV antibiotics at this time. [id number]/[facility] #: [id number] KAREN
[2018-11-06] MEDS: Lactated Ringers 1000 ML Bag* 1,000 ML IV SCH (11:52)
[2018-11-06] MEDS: HYDROmorphone INJ1* 1 MG/ML SYRINGE IV SLOW PU PRN ×2 (12:00→18:36)
[2018-11-06] MEDS: Piperacillin/Tazobactam VIAL*) 3.375 GM in NS 0.9% 100 ML* 100 ML IVPB SCH ×3 (12:57→20:53)
[2018-11-06] MEDS: Ketorolac INJ* 30 MG/ML 1 ML VIAL IV PRN (21:49)
[2018-11-07] MEDS: Lactated Ringers 1000 ML Bag* 1,000 ML IV SCH (00:17)
[2018-11-07] MEDS: Piperacillin/Tazobactam VIAL*) 3.375 GM in NS 0.9% 100 ML* 100 ML IVPB SCH ×4 (02:28→20:10)
[2018-11-07] MEDS ORDERED: Lactated Ringers 1000 ML Bag* 1,000 ML IV SCH (06:00)
[2018-11-07] MEDS ORDERED: Famotidine IV* 10 MG/ML 2 ML (20 mg) IV ONE (06:00)
[2018-11-07 07:44] LABS: Albumin 3.5 g/dL (3.2-5.2); Albumin/Globulin Ratio 1.5 (1-3); BUN/Creatinine Ratio 16.4 (8-20); Calcium 8.2 mg/dL (8.6-10.3); EGFR African American 138.8 (>60); EGFR Non-African American 114.7 (>60); Globulin 2.4 g/dL (2-4); Potassium 3.8 mmol/L (3.5-5.0); Total Bilirubin 0.9 mg/dL (0.2-1.0); Total Protein 5.9 g/dL (6.4-8.9)
[2018-11-07] MEDS ORDERED: Buffered Lidocaine 1% SYRIN* 1 ML/SYRINGE INTRADERM ONE (08:00)
[2018-11-07] MEDS ORDERED: Famotidine IV* 10 MG/ML 2 ML (20 mg) ONE (09:13)
[2018-11-07] MEDS ORDERED: Bupivacaine 0.25% W/EPI* 10 ML SDV ONE (10:24)
[2018-11-07] MEDS ORDERED: Midazolam* 1 MG/ML 5 ML VIAL (5 MG) ONE (10:25)
[2018-11-07] MEDS ORDERED: Lidocaine 2% PF * 5 ML VIAL ONE (10:25)
[2018-11-07] MEDS ORDERED: Cisatracurium* 2 MG/ML MDV 5 ML ONE (10:25)
[2018-11-07] MEDS ORDERED: Propofol* 10 MG/ML 20 ML BTL ONE (10:25)
[2018-11-07] MEDS ORDERED: Ondansetron INJ* 2 MG/ML VIAL ONE (10:25)
[2018-11-07] MEDS ORDERED: Dexamethasone IV* 4 MG/ML 1 ML (4 MG) ONE (10:25)
[2018-11-07] MEDS ORDERED: Ketorolac INJ* 30 MG/ML 1 ML VIAL ONE (10:25)
[2018-11-07] MEDS ORDERED: HYDROmorphone INJ1* 1 MG/ML SYRINGE ONE (10:26)
[2018-11-07] MEDS ORDERED: EPHEDrine (Pressors)* 50 MG/ML VIAL ONE (11:06)
[2018-11-07] MEDS ORDERED: ceFAZolin 1 GM in Dextrose (*) 1 GM/50 ML BAG IVPB ONE (11:07)
[2018-11-07] MEDS ORDERED: ceFAZolin 2 GM in NS PREMIX(*) 2 GM/100 ML BAG IVPB ONE (11:07)
[2018-11-07] MEDS ORDERED: Naloxone* 0.4 MG/ML 1 ML VIAL IV PRN (11:34)
[2018-11-07] MEDS ORDERED: HYDROmorphone INJ1* 1 MG/ML SYRINGE IV PRN (11:34)
[2018-11-07] MEDS ORDERED: Ondansetron INJ* 2 MG/ML VIAL IV PRN (11:34)
[2018-11-07] MEDS ORDERED: Glycopyrrolate IV* 0.2 MG/ML 1 ML VIAL ONE (11:54)
[2018-11-07] MEDS ORDERED: Neostigmine Methylsulfate* 1 MG/ML 10 ML VIAL (1 mg/ml) ONE (11:54)
--- NOTE | 2018-11-07 12:13 | OP ---
Operative Report - Blank - Operative Report Date of Operation: 11/07/18 Note: Brief Operative Note Preop Dx: Cholecystitis Postop Dx: Same Procedure: Laparascopic cholecystectomy Anesthesia: GET Surgeon: Renata Flame Channeler: Lauryn MALDONADO Fluids: 1500 mL EBL: <50 mL Specimen: Gallbladder Drains: None Findings: dictated
--- NOTE | 2018-11-07 13:18 | OP ---
CC: Dr. Mcarthur * DATE OF OPERATION: 11/07/18 - ROOM #334 DATE OF : 70 SURGEON: Candelario Yanez MD. SUPERVISOR INSPECTING: ERICA Aguirre ANESTHESIOLOGIST: Dr. Agudelo. ANESTHESIA: General anesthetic, local infiltration. PRE-OP DIAGNOSIS: Acute cholecystitis. POST-OP DIAGNOSIS: Acute cholecystitis. OPERATIVE PROCEDURE: Laparoscopic cholecystectomy. DESCRIPTION OF PROCEDURE: The patient was supine on the operative table. After adequate general anesthetic, compression stockings, Den Hugger warmer and intravenous antibiotics, the abdomen was prepped with antiseptic, draped in a sterile fashion. Local infiltrative anesthesia was administered. Right upper quadrant 5-mm Visiport cannula was placed and abdomen entered under direct vision. Peritoneum was insufflated with carbon dioxide. Additional cannulae, 12-mm subxiphoid and 5-mm supraumbilical and right anterior axillary line, were placed through small stab wounds under direct vision. The gallbladder was acutely inflamed. Omentum was adherent. This was peeled off. The gallbladder was very distended and thick wall so was drained of light colored bile and then retracted and the cystic artery and cystic duct were ultimately identified without much difficulty. They were clipped and divided. Gallbladder was removed from the liver bed using electrocautery. Hemostasis was obtained using electrocautery. Gallbladder was placed in a retrieval bag and brought out through the epigastric site, which was enlarged for that purpose. The operative site was irrigated with saline solution. Free fluid was suctioned out. Hemostasis was confirmed. The cannulae removed. Pneumoperitoneum allowed to escape. The larger epigastric incision was closed with 0 Vicryl using an Endo-Close device. Skin was closed using 5-0 Vicryl in all cases followed by Steri-Strips. He tolerated the procedure well, was awakened and brought to recovery in good condition. No complications. No drains. Pathologic specimen is gallbladder. Sponge and instruments were correct. Estimated blood loss 30 mL. [id number]/[facility] #: [id number] MTDD
[2018-11-07] MEDS ORDERED: Acetaminophen TAB* 325 MG PO PRN (13:47)
[2018-11-07] MEDS ORDERED: HYDROmorphone TAB* 4 MG PO PRN (13:49)
[2018-11-07] MEDS ORDERED: NS 0.9% 1000 ML** 1,000 ML IV SCH (14:15)
[2018-11-07] MEDS: Ketorolac INJ* 30 MG/ML 1 ML VIAL IV PRN (20:07)
[2018-11-08] MEDS: Ketorolac INJ* 30 MG/ML 1 ML VIAL IV PRN ×2 (02:42→12:00)
--- NOTE | 2018-11-08 08:47 | PN ---
Progress Note - Progress Note Date of Service: 11/08/18 Note: POD#1 s/p cholecystectomy Afeb, VS OK UO OK C/O 10/10 pain when trying to move Abd obese, soft quite tender RUQ Will arrange labs and HIDA to eval for biliary leak.
[2018-11-08 09:23] LABS: ABS Basophils 0.1 10^3/ul (0-0.2); ABS Eosinophils 0 10^3/ul (0-0.6); ABS Lymphocytes 1.4 10^3/ul (1.0-4.8); ABS Monocytes 0.8 10^3/ul (0-0.8); ABS Neutrophils 9.9 10^3/ul (1.5-7.7); ABS Nucleated RBC 0 10^3/ul; Eosinophil % 0.1 %; Hematocrit 39 % (36-46); Hemoglobin 13.1 g/dL (14.0-18.0); Lymphocyte % 11.7 %; Mean Corpuscular HGB Conc 33 g/dL (31-36); Mean Corpuscular Hemoglobin 29 pg (27-31); Mean Corpuscular Volume 87 fL (80-94); Mean Platelet Volume 9.4 fL (7.4-10.4); Nucleated Red Blood Cells % 0; Platelet Count 216 10^3/uL (150-450); Red Blood Count 4.52 10^6 /uL (4.18-5.48); Red Cell Distribution Width 14 % (10.5-15); White Blood Count 12.1 10^3/uL (3.5-10.8)
[2018-11-08 09:40] LABS: Albumin 3.7 g/dL (3.2-5.2); Albumin/Globulin Ratio 1.5 (1-3); BUN/Creatinine Ratio 19.2 (8-20); Calcium 8.4 mg/dL (8.6-10.3); EGFR African American 128.5 (>60); EGFR Non-African American 106.2 (>60); Globulin 2.5 g/dL (2-4); Potassium 3.8 mmol/L (3.5-5.0); Total Bilirubin 0.4 mg/dL (0.2-1.0); Total Protein 6.2 g/dL (6.4-8.9)
[2018-11-08 13:03] VITALS: BP 124/75
--- NOTE | 2018-11-08 14:40 | DS ---
CC: Candelario Yanez MD; Dr. Mcarthur DISCHARGE SUMMARY: DATE OF ADMISSION: 11/06/18 DATE OF DISCHARGE: 11/08/18 PRINCIPAL ADMITTING DIAGNOSIS: Acute cholecystitis. OPERATION ON THIS ADMISSION: Laparoscopic cholecystectomy. COMPLICATIONS: None. HOSPITAL COURSE: The patient is a 48-year-old morbidly obese male who came to the hospital and was f ound to have acute cholecystitis. He was admitted and put on intravenous antibiotics and taken to e operating room on the following morning for laparoscopic cholecystectomy. He had an uneventful lap aroscopic cholecystectomy. The gallbladder was badly inflamed and infected and he was kept on intrav enous antibiotics postoperatively. The following morning, he was having very intense abdominal pain, clinically it seem to be related to the incisions, but due to the magnitude of his pain, it was deci ded that a nuclear biliary scan will be carried out to ensure that there was no biliary leakage as e blood work was relatively normal and the nuclear biliary scan proved to be normal as well. So, the re was no evidence of biliary leakage, so he will discharged home with instructions and will follow u p in the office in about a week. [id number]/[facility] #: [id number]
== END 2018-11-08 14:40 | disposition home or self-care (01) | DRG 263 ==
LOC: ED 21:02 → SSU 11-06 09:15
PROVIDERS: ADMIT Surgery; ATTEND Surgery
PROC: 0FT44ZZ Resection of Gallbladder, Percutaneous Endoscopic Approach (ICD-10-PCS; principal; 2018-11-07 10:30)
DX: K81.0 Acute cholecystitis (principal); Z68.41 Body mass index [BMI] 40.0-44.9, adult; G89.18 Other acute postprocedural pain; I10 Essential (primary) hypertension; K21.9 Gastro-esophageal reflux disease without esophagitis; G47.33 Obstructive sleep apnea (adult) (pediatric); F32.9 Major depressive disorder, single episode, unspecified; M19.90 Unspecified osteoarthritis, unspecified site; E66.01 Morbid (severe) obesity due to excess calories; E88.81 Metabolic syndrome and other insulin resistance; Z79.899 Other long term (current) drug therapy
CPT/HCPCS: 36415; 74177; 76705; 78226; 80053; 81003; 81015; 83605; 83690; 85025; 86140; 88304; 99284; A9270-GY; A9537; J0690; J1100; J1170; J1885; J2250; J2405; J2543; J2704; J2710; J3010; Q9967

== ENCOUNTER 2019-04-01 20:01 | Emergency (ER) | payer OTHER ==
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
[2019-04-01] MEDS ORDERED: Ibuprofen TAB* 600 MG ONE (21:44)
[2019-04-01] MEDS ORDERED: Ibuprofen TAB* 600 MG PO ONE (21:46)
[2019-04-01 22:03] VITALS: BP 0/0
== END 2019-04-01 22:02 | disposition home or self-care (01) ==
LOC: ED 20:01
DX: M54.2 Cervicalgia (principal); R07.9 Chest pain, unspecified; S01.81XA Laceration without foreign body of other part of head, initial encounter; V43.62XA Car passenger injured in collision with other type car in traffic accident, initial encounter; Y92.410 Unspecified street and highway as the place of occurrence of the external cause; Z88.1 Allergy status to other antibiotic agents; Z88.5 Allergy status to narcotic agent
CPT/HCPCS: 12013; 70450; 71045; 72125; 93005; 99282; A9270-GY

== ENCOUNTER 2019-09-30 08:14 | Emergency (ER) | payer OTHER ==
--- OUTSIDE RECORDS SUMMARY | 2019-09-30 08:28 | XMS REPORT | Continuity of Care Document ---
:1970 External Reference #:[id number] Author Name Amaya Spaulding DNP, RN, SAFETY DEPOSIT CLERK-BC (transmitted by agent of provider Gema Salazar) Address [address] [facility], [address] [address] Care Team Providers Name Role Phone Andrzej Mcarthur III, MD - Internal Care Team Information Wellness Consultant Medicine [facility] Physical Therapy - Care Team Information Wellness Consultant [phone] Physical Therapist Moseh Avila DO - Interventional Care Team Information Wellness Consultant Pain Medicine [facility] - Sleep Disorder Care Team Information Wellness Consultant Diagnostic Caroline Mcginnis MD - Adult Care Team Information Wellness Consultant [phone] Reconstructive Orthopaedic Surgery [facility] - Care Team Information Wellness Consultant Electrician Chief Varinder Vidales MD - Surgery Care Team Information Wellness Consultant [phone] [facility] - Care Team Information Wellness Consultant Mental Health Problems Active Problems Provider Date Low back pain Zonia Rizzo N.P. Onset: 11/03/2011 Acute pharyngitis Thanh Sabillon M.D. Onset: 12/13/2011 Gastroesophageal reflux disease Andrzej Mcarthur M.D. Onset: 05/22/2012 Malaise and fatigue Thanh Sabillon M.D. Onset: 07/07/2016 Obstructive sleep apnea syndrome Thanh Sabillon M.D. Onset: 07/07/2016 Hemorrhage of rectum and anus Thanh Sabillon M.D. Onset: 07/07/2016 Shoulder joint pain Thanh Sabillon M.D. Onset: 08/11/2016 Mild recurrent major depression Thanh Sabillon M.D. Onset: 08/11/2016 Cobalamin deficiency Thanh Sabillon M.D. Onset: 08/25/2016 Disturbance in sleep behavior Virgie Duron MD Onset: 09/01/2016 Sprain of shoulder and upper arm Caroline Mcginnis M.D. Onset: 09/18/2016 Adhesive capsulitis of shoulder Thanh Sabillon M.D. Onset: 09/28/2016 Morbid obesity Virgie Duron MD Onset: 09/29/2016 Insomnia Amaya Spaulding DNP, RN, Onset: 11/10/2016 SAFETY DEPOSIT CLERK-BC Wrist joint pain Onelia Light MD Onset: 08/31/2017 Arthralgia of the upper arm Onelia Light MD Onset: 08/31/2017 Brachial neuritis Onelia Light MD Onset: 08/31/2017 Enthesopathy of wrist AND/OR carpus Arnel Shaikh MD Onset: 10/09/2017 Injury of shoulder region Onelia Light MD Onset: 11/30/2017 Social History Type Date Description Comments Sex Unknown ETOH Use Denies alcohol use Tobacco Use Start: Unknown Patient has never smoked Recreational Drug Use Denies Drug Use Smoking Status Reviewed: 08/15/19 Patient has never smoked Exercise Type/Frequency Does not exercise Allergies, Adverse Reactions, Alerts Active Allergies Reaction Severity Comments Date Morphine seizures 01/13/2009 Levaquin hives 01/13/2009 Tramadol headaches 01/17/2018 Medications Description No Active Medications Medications Administered in Office Medication SIG Qnty Indications Ordering Provider Date Triamcinolone (Kenalog) Onelia Light MD 08/31/2017 Injection Depomedrol 40MG Caroline Mcginnis M.D. 09/18/2016 Injection B-12 Injection Thanh Sabillon M.D. 09/07/2016 Injection B-12 Injection Nurse Visit [place] 09/01/2016 Injection B-12 Kashif Sabillon M.D. 08/25/2016 Injection B-12 Injection Thanh Sabillon M.D. 08/11/2016 Injection B-12 Injection Nurse Visit [place] 08/04/2016 Injection B-12 Injection Thanh Sabillon M.D. 07/28/2016 Injection B-12 Injection Nurse Visit [place] 07/21/2016 Injection B-12 Injection Thanh Sabillon M.D. 07/14/2016 Injection Toradol Injection 15MG Shirley France M.D. 07/05/2009 Injection Immunizations CPT Code Status Date Vaccine Lot # [id number] Given 08/01/2018 Influenza Virus Vaccine, Quadrivalent, Split, [id number] Preservative Free 23018 Given 07/02/2013 Flu Vaccine Split Virus Preservative Free For [id number] Indiv [id number] Older 09588 Given 01/03/2013 Tdap - Tetanus/Diptheria/Acellular Pertussis [id number] Given 05/22/2012 Fluzone Vaccine [id number] 68296 Given 07/21/2009 Influenza Virus Vaccine, Pandemic Formulation [id number] 6P 63067 Given 07/21/2009 Administration Swine Flu Shot 28806 Given 07/05/2009 Influenza Virus Vaccine, Pandemic Formulation 55378 Given 07/05/2009 Administration Swine Flu Shot Vital Signs Date Vital Result Comment 08/15/2019 10:13am Height 66 inches 5'6" Weight 270.00 lb Heart Rate 78 /min O2 % BldC Oximetry 98 % BMI (Body Mass Index) 43.6 kg/m2 08/04/2019 4:32pm Height 66 inches 5'6" Weight 270.38 lb Heart Rate 75 /min BP Systolic Sitting 138 mmHg BP Diastolic Sitting 79 mmHg BMI (Body Mass Index) 43.6 kg/m2 Results Description No Information Available Procedures Date Code Description Status 02/01/2011 [id number] Diabetic Foot Exam Completed 01/09/2011 [id number] Diabetic Foot Exam Completed 10/14/2010 974863376 Diabetic Foot Exam Completed Medical Devices Description No Information Available Encounters Type Date Location Provider Dx Diagnosis Office Visit 04/09/2019 Financial Reporting Analyst Internal Andrzej Mcarthur, M25.561 Pain in right 4:20p Medicine - Ccmob M.D. knee R03.0 Elevated blood-pressure reading, w/o diagnosis of htn E66.01 Morbid (severe) obesity due to excess calories G47.33 Obstructive sleep apnea (adult) (pediatric) R73.01 Impaired fasting glucose E78.2 Mixed hyperlipidemia Assessments Date Code Description Provider 08/15/2019 G47.33 Obstructive sleep apnea (adult) Amaya Spaulding DNP, RN, (pediatric) JENNIFER 08/04/2019 R07.9 Chest pain, unspecified Andrzej Mcarthur M.D. 08/04/2019 R06.00 Dyspnea, unspecified Andrzej Mcarthur M.D. 08/04/2019 R53.83 Other fatigue Andrzej Mcarthur M.D. 08/04/2019 G47.33 Obstructive sleep apnea (adult) Andrzej Mcarthur M.D. (pediatric) 08/04/2019 E78.2 Mixed hyperlipidemia Andrzej Mcarthur M.D. 08/04/2019 R73.01 Impaired fasting glucose Andrzej Mcarthur M.D. 08/04/2019 F34.1 Dysthymic disorder Andrzej Mcarthur M.D. 08/04/2019 H81.10 Benign paroxysmal vertigo, Andrzej Mcarthur M.D. unspecified ear 04/09/2019 M25.561 Pain in right knee Andrzej Mcarthur M.D. 04/09/2019 R03.0 Elevated blood-pressure reading, Andrzej Mcarthur M.D. without diagnosis of hypertension 04/09/2019 E66.01 Morbid (severe) obesity due to Andrzej Mcarthur M.D. excess calories 04/09/2019 G47.33 Obstructive sleep apnea (adult) Andrzej Mcarthur M.D. (pediatric) 04/09/2019 R73.01 Impaired fasting glucose Andrzej Mcarthur M.D. 04/09/2019 E78.2 Mixed hyperlipidemia Andrzej Mcarthur M.D. Plan of Treatment Future Appointment(s):09/30/2019 10:30 am - Amaya Spaulding DNP, RN, JESS- at [facility]08/18/2019 11:00 am - Traveling ECHO 2 at [facility]08/15/2019 - Amaya Spaulding DNP, RN, [facility]-BCG47.33 Obstructive sleep apnea (adult) (pediatric)Comments:Problems with pressuresleep study AHI - 27.2/hr, O2 demi 78%On CPAP auto 5-14 AHI 1/hour, normalFollow up :6 weeksRecommendations:Continue PAP device, Benefitting with treatment. Problems with compliance as needs replacement supplies. Recommend Auto setting 7 -9 cm. please let us know if problems with this setting. Per you request will send order to [facility] ([email or web address]) at [address] [address]. [phone] Call [facility] for an appointment to take the machine and what you have to [facility]. They can check what youhave and what you need to replace. They can set machine to min 7 max 9 pressure. Once changed, you can set ramp at 4,5 , or 6. Cleaning Wipe off mask daily (baby wipe-no scent, or warm water) Clean mask, tubing, filter, and water chamber weekly in mild no scent dish soap and water. Hang to dry. If you have any sleepiness while driving you MUST avoid operating a vehicle or machinery. If you have difficulty with your equipment, or need to replace your mask or hoses, please contact your homecare agency. A weight change of 20 pounds or more may have an effect on your equipment; if you are experiencing problems please call for an appointment. Make another appointment to follow-up with [facility] about your weight. If you have any further questions, please call the Sleep Disorder Center at [phone]. Functional Status Description No Information Available Mental Status Description No Information Available Referrals Refer to Reason for Referral Status Appt Date [facility] (+) sleep apnea with increased daytime somnolence, Sent fatigue, interrupted sleep at night chronically. Off CPAP at present due to machine issues [address] [place] [address] [phone] [facility] chronic depression, ? ADD sx since Created his teens mailed referral to patient 08/05 S5. [address] [place] [address] [phone] Varinder Vidales MD Eval for possible bariatric surgery Sent [address] [facility] [address] [phone] [facility] weight loss diet ed; pt Received Partial Living interested in possible bariatric surgery [address] [facility] [address] [place] [address] [phone]
[2019-09-30 08:57] LABS: Influenza A Molecular Negative (Negative); Influenza B Molecular Negative (Negative)
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
[2019-09-30 09:09] LABS: ABS Basophils 0.1 10^3/ul (0-0.2); ABS Eosinophils 0.1 10^3/ul (0-0.6); ABS Lymphocytes 1.5 10^3/ul (1.0-4.8); ABS Monocytes 0.8 10^3/ul (0-0.8); ABS Neutrophils 7.6 10^3/ul (1.5-7.7); Eosinophil % 1.1 %; Hematocrit 45 % (42-52); Hemoglobin 15.5 g/dL (14.0-18.0); Lymphocyte % 14.5 %; Mean Corpuscular HGB Conc 34 g/dL (31-36); Mean Corpuscular Hemoglobin 30 pg (27-31); Mean Corpuscular Volume 87 fL (80-94); Mean Platelet Volume 9.6 fL (7.4-10.4); Nucleated Red Blood Cells % 0.1; Platelet Count 189 10^3/uL (150-450); Red Blood Count 5.17 10^6 /uL (4.18-5.48); Red Cell Distribution Width 14 % (10-15)
[2019-09-30 09:34] LABS: Albumin 4.1 g/dL (3.2-5.2); Albumin/Globulin Ratio 1.5 (1-3); BUN/Creatinine Ratio 17.1 (8-20); Calcium 8.8 mg/dL (8.6-10.3); EGFR African American 131.9 (>60); Globulin 2.8 g/dL (2-4); Potassium 3.9 mmol/L (3.5-5.0); Total Bilirubin 0.6 mg/dL (0.2-1.0); Total Protein 6.9 g/dL (6.4-8.9)
[2019-09-30] MEDS ORDERED: Amoxicillin/Clavulanate TAB* 875 MG PO ONE (09:48)
[2019-09-30 10:02] VITALS: BP 133/89
== END 2019-09-30 10:11 | disposition home or self-care (01) ==
LOC: ED 08:14
DX: H66.90 Otitis media, unspecified, unspecified ear (principal); K21.9 Gastro-esophageal reflux disease without esophagitis; F41.9 Anxiety disorder, unspecified; F32.9 Major depressive disorder, single episode, unspecified; Z88.1 Allergy status to other antibiotic agents; Z88.5 Allergy status to narcotic agent
CPT/HCPCS: 36415; 71046; 80053; 84484; 85025; 93005; 99282; A9270-GY

== ENCOUNTER 2019-10-26 15:42 | Emergency (ER) | payer OTHER ==
--- OUTSIDE RECORDS SUMMARY | 2019-10-26 16:13 | XMS REPORT | Continuity of Care Document ---
:1970 External Reference #:[id number] Author Name Amaya Spaulding DNP, RN, VERTICA ARCHITECT-BC (transmitted by agent of provider Gema Salazar) Address [address] [facility], [address] [place] [id number] Care Team Providers Name Role Phone Andrzej Mcarthur III, MD - Internal Care Team Information Header Set Up Operator [phone] [facility] - Care Team Information Header Set Up Operator [phone] Physical Therapist Moshe Avila DO - Interventional Care Team Information Header Set Up Operator Pain Medicine [facility] - Sleep Disorder Care Team Information Header Set Up Operator Diagnostic Caroline Mcginnis MD - Adult Care Team Information Header Set Up Operator [phone] Reconstructive Orthopaedic Surgery [facility] - Care Team Information Header Set Up Operator Ultrasound Coordinator Varinder Vidales MD - Surgery Care Team Information Header Set Up Operator [phone] [facility] - Care Team Information Header Set Up Operator Mental Health Problems Active Problems Provider Date Low back pain Tam MoyP. Onset: 11/03/2011 Acute pharyngitis Thanh Sabillon M.D. [...] Insomnia Amaya Spaulding DNP, RN, Onset: 11/10/2016 [employer]ICA ARCHITECT-BC Wrist joint pain Onelia Light MD Onset: [...] Use Denies Drug Use Smoking Status Reviewed: 10/23/19 Patient has never smoked Exercise Type/Frequency Does not exercise Allergies, Adverse Reactions, Alerts Active Allergies Reaction Severity Comments Date Morphine seizures 01/13/2009 Levaquin hives 01/13/2009 Tramadol headaches 01/17/2018 Medications Description No Active Medications Medications Administered in Office Medication SIG Qnty Indications Ordering Provider Date Technetium TC 99M Chucky Mccollum M.D. 09/17/2019 Tetrofosmin, Per Unit Dose Up To 40 Millicuries Injection Triamcinolone (Kenalog) Onelia Light MD 08/31/2017 Injection Depomedrol 40MG Caroline Mcginnis M.D. 09/18/2016 Injection B-12 Injection Thanh Sabillon M.D. 09/07/2016 Injection B-12 Injection Nurse Visit [facility] 09/01/2016 Injection B-12 Injection Thanh Sabillon M.D. 08/25/2016 Injection B-12 Injection Thanh Sabillon M.D. 08/11/2016 Injection B-12 Injection Nurse Visit [place] 08/04/2016 Injection B-12 Injection Thanh Sabillon M.D. 07/28/2016 Injection B-12 Injection Nurse Visit [place] 07/21/2016 Injection B-12 Injection Thanh Sabillon M.D. 07/14/2016 Injection Toradol Injection 15MG Shirley France M.D. 07/05/2009 Injection Immunizations CPT Code Status Date Vaccine Lot # [id number] Given 08/01/2018 Influenza Virus Vaccine, Quadrivalent, Split, [id number] Preservative Free [id number] Given 07/02/2013 Flu Vaccine Split Virus Preservative Free For [id number] Indiv [id number] Older 28832 Given 01/03/2013 Tdap - Tetanus/Diptheria/Acellular Pertussis [id number] Given 05/22/2012 Fluzone Vaccine [id number] [id number] Given 07/21/2009 Influenza Virus Vaccine, Pandemic Formulation [id number] [id number] 24135 Given 07/21/2009 Administration Swine Flu Shot 02446 Given 07/05/2009 Influenza Virus Vaccine, Pandemic Formulation 03253 Given 07/05/2009 Administration Swine Flu Shot Vital Signs Date Vital Result Comment 10/23/2019 2:03pm Height 66 inches 5'6" Weight 270.50 lb Heart Rate 82 /min BP Systolic 130 mmHg BP Diastolic 86 mmHg O2 % BldC Oximetry 96 % BMI (Body Mass Index) 43.7 kg/m2 08/15/2019 10:13am Height 66 inches 5'6" Weight 270.00 lb Heart Rate 78 /min O2 % BldC Oximetry 98 % BMI (Body Mass Index) 43.6 kg/m2 Results Test Acquired Date Facility Test Result H/L Range Note CBC Auto 09/30/2019 [facility] White Blood 10.0 10^3/uL Normal 3.5-10.[address] [place] [address] [phone] Red Blood Count 5.17 10^6/uL Normal 4.18-5.48 Hemoglobin 15.5 g/dL Normal 14.0-18.0 Hematocrit 45 % Normal 42-52 Mean Corpuscular Volume 87 fL Normal 80-94 Mean Corpuscular Hemoglobin 30 pg Normal 27-31 Mean Corpuscular HGB Conc 34 g/dL Normal 31-36 Red Cell Distribution Width 14 % Normal 10-15 Platelet Count 189 10^3/uL Normal 150-450 Mean Platelet Volume 9.6 fL Normal 7.4-10.4 Abs Neutrophils 7.6 10^3/uL Normal 1.5-7.7 Abs Lymphocytes 1.5 10^3/uL Normal 1.0-4.8 Abs Monocytes 0.8 10^3/uL Normal 0-0.8 Abs Eosinophils 0.1 10^3/uL Normal 0-0.6 Abs Basophils 0.1 10^3/uL Normal 0-0.2 Abs Nucleated RBC 0.0 10^3/uL Granulocyte % 76.3 % Lymphocyte % 14.5 % Monocyte % 7.5 % Eosinophil % 1.1 % Basophil % 0.6 % Nucleated Red Blood Cells % 0.1 Comp Metabolic 09/30/2019 [facility] Sodium 138 mmol/L Normal 135-145 Panel [address] [place] [address] [phone] Potassium 3.9 mmol/L Normal 3.5-5.0 Chloride 102 mmol/L Normal 101-111 Co2 Carbon Dioxide 29 mmol/L Normal 22-32 Anion Gap 7 mmol/L Normal 2-11 Glucose 120 mg/dL High 70-100 Blood Urea Nitrogen 13 mg/dL Normal 6-24 Creatinine 0.76 mg/dL Normal 0.67-1.17 BUN/Creatinine Ratio 17.1 Normal 8-20 Calcium 8.8 mg/dL Normal 8.6-10.3 Total Protein 6.9 g/dL Normal 6.4-8.9 Albumin 4.1 g/dL Normal 3.2-5.2 Globulin 2.8 g/dL Normal 2-4 Albumin/Globulin Ratio 1.5 Normal 1-3 Total Bilirubin 0.60 mg/dL Normal 0.2-1.0 Alkaline Phosphatase 64 U/L Normal 34-104 Alt 17 U/L Normal 7-52 Ast 11 U/L Low 13-39 Egfr Non- 109.0 >60 Egfr 131.9 >60 1 Laboratory test 09/30/2019 [facility] Troponin-I (TnI) 0.00 ng/ mL <0.03 2 finding [address] [place] [address] [phone] Influenza A & B 09/30/2019 [facility] Flu AB (SEE NOTE) [address] Disclaimer [place] [address] [phone] Influenza A Molecular Negative Negative Influenza B Molecular Negative Negative 4 Order 08/12/2019 [facility] Stress Test, Exercise <pending> [address] Echocardiogram JAYASHREE Mark [phone] 1 Because ethnic data is not always readily [...] 15-29 5 Kidney failure <15 (or dialysis) 2 Troponin-I testing on Plasma Separator Tubes (PST) has a known false positive rate of 0.20-0.40%. All positive troponins reflex immediately to secondary confirmatory testing. Using the [employer] DxI 800 Access Immunoassay systems, the 99th percentile upper reference limit was demonstrated to be < 0.03 ng/mL. 3 Suboptimal collection technique may reduce sensitivity of test. Refer to the [facility] Test Catalog for collection information: [email or web address] As with all diagnostic procedures, the laboratory results obtained should be used in conjunction with other clinical information available to the physician, including confirmation by another method, as applicable. 4 Promos Executive Producer: [id number] Procedures Date Code Description Status 09/17/2019 12243 Stress Test Completed 09/17/2019 37638 Myocardial Perfusion Imaging Tomographic (Spect) Completed Single Study 08/18/2019 18458 ECHO Transthoracic, Real-Time 2D With Doppler And Completed Color Flow 08/18/2019 47424 ECHO Transthoracic, Real-Time 2D With Doppler And Completed Color Flow 08/04/2019 93481 EKG Tracing & Interpretation Completed 02/01/2011 [id number] Diabetic Foot Exam Completed 01/09/2011 [id number] Diabetic Foot Exam Completed 10/14/2010 [id number] Diabetic Foot Exam Completed Medical Devices Description No Information Available Encounters Type Date Location Provider Dx Diagnosis Office Visit 08/15/2019 Pulmonology And Amaya Spaulding, G47.33 Obstructive sleep 10:30a [facility] apnea (adult) [facility] (pediatric) Office Visit 08/04/2019 [facility] Internal Andrzej Queen R06.00 Dyspnea, 4:20p Medicine - Hunter Mcarthur M.D. unspecified R07.89 Other chest pain R53.83 Other fatigue G47.33 Obstructive sleep apnea (adult) (pediatric) E78.2 Mixed hyperlipidemia R73.01 Impaired fasting glucose F34.1 Dysthymic disorder H81.10 Benign paroxysmal vertigo, unspecified ear Assessments Date Code Description Provider 10/23/2019 E66.2 Morbid (severe) obesity with alveolar Amaya Spaulding DNP RN, hypoventilation [facility] 10/23/2019 G47.33 Obstructive sleep apnea (adult) Amaya Spaulding DNP RN, (pediatric) [facility] 10/23/2019 G47.14 Hypersomnia due to medical condition Amaya Spaulding DNP RN, [facility] 10/23/2019 Z68.41 Body mass index (BMI) 40.0-44.9, Amaya Spaulding DNP, RN, adult [facility] 09/17/2019 R07.9 Chest pain, unspecified Chucky Mccollum M.D. 08/18/2019 R06.00 Dyspnea, unspecified Fidel Quinteros M.D. 08/18/2019 R06.00 Dyspnea, unspecified Traveling ECHO 2 08/18/2019 G47.33 Obstructive sleep apnea (adult) Traveling ECHO 2 (pediatric) 08/18/2019 E66.01 Morbid (severe) obesity due to excess Traveling ECHO 2 calories 08/15/2019 G47.33 Obstructive sleep apnea (adult) Amaya Spaulding DNP, RN, (pediatric) [facility] 08/04/2019 R06.00 Dyspnea, unspecified Andrzej Mcarthur M.D. 08/04/2019 R07.89 Other chest pain Andrzej Mcarthur M.D. 08/04/2019 R53.83 Other fatigue Andrzej Mcarthur M.D. 08/04/2019 G47.33 Obstructive sleep apnea (adult) Andrzej Mcarthur M.D. (pediatric) 08/04/2019 E78.2 Mixed hyperlipidemia Andrzej Mcarthur M.D. 08/04/2019 R73.01 Impaired fasting glucose Andrzej Mcarthur M.D. 08/04/2019 F34.1 Dysthymic disorder Andrzej Mcarthur M.D. 08/04/2019 H81.10 Benign paroxysmal vertigo, Andrzej Mcarthur M.D. unspecified ear Plan of Treatment 10/23/2019 - Amaya Spaulding DNP, RN, VERTICA ARCHITECT-BCE66.2 Morbid (severe) obesity with alveolar hypoventilationNew Labs:Arterial Blood Gas, Ordered: 10/23/19CBC Auto Diff, Ordered: 10/23/19New Orders:Sleep Study, Ordered: 10/23/19PFTW/Spirometry Vol Pre/Post Bronchdilat Dlco Complete, Ordered: 10/23/19Recommendations:Most likely obesity hypoventilation and will require AVAPS titration ABG PFTs with diffusion Have these tests done prior to in-lab sleep study. AVAPS titration, possibly BiPAP if ABG is asumoaL05.33 Obstructive sleep apnea (adult) (pediatric )New Orders:Sleep Study Bipap, Ordered: 10/23/19Comments:sleep study AHI - 27.2 /hr, O2 demi 78% on CPAP 7-9 AHI 0.8/hour poor compliance with use.Follow up:2 monthsRecommendations:Will reduce CPAP to 7 cm. Order sent to [facility]. Due to headache, obesity, most likely have obesity hypoventilation syndrome which will require AVAPS. In-lab study BiPAP vs AVAPS recommended. Cleaning Wipe off mask daily (baby wipe-no scent, or warm water) Clean mask, tubing, filter, and water chamber weekly in mild no scent dish soap and water. Hang to dry. If you have any sleepiness while drivingyou MUST avoid operating a vehicle or machinery. If you have difficulty with your equipment, or needto replace your mask or hoses, please contact your homecare agency. A weight change of 20 pounds or more may have an effect on your equipment; if you are experiencing problems please call for an appointment. If you have any further questions, please call the [facility] at [phone].G47.14 Hypersomnia due to medical conditionRecommendations:If you have any sleepiness while driving you MUST avoid operating a vehicle or machinery.Z68.41 Body mass index (BMI) 40.0- 44.9, adultRecommendations:See assessment #1 Functional Status Description No Information Available Mental Status Description No Information Available Referrals Refer to Reason for Referral Status Appt Date [facility] (+) sleep apnea with increased daytime somnolence, Sent fatigue, interrupted sleep at night chronically. Off CPAP at present due to machine issues [address] [place] [id number] [phone] [facility] chronic depression, ? ADD sx since Created his teens mailed referral to patient 08/05 S5. [address] [place] [address] [phone]
[2019-10-26 16:16] LABS: Influenza A Molecular POSITIVE (Negative)
[2019-10-26] MEDS ORDERED: Acetaminophen TAB* 325 MG PO ONE (16:57)
[2019-10-26] MEDS ORDERED: Albuterol/Ipratropium NEB.SOL* Albuterol 2.5 MG/Ipratropium 0.5 MG 3 ML INH ONE (16:57)
[2019-10-26] MEDS ORDERED: Ketorolac INJ* 30 MG/ML 1 ML VIAL IM ONE (16:57)
[2019-10-26] MEDS ORDERED: Ondansetron ODT TAB* 4 MG PO ONE (16:58)
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
[2019-10-26] MEDS ORDERED: Oseltamivir CAP* 75 MG CAP PO ONE (18:04)
[2019-10-26 18:23] VITALS: BP 132/100
== END 2019-10-26 18:22 | disposition home or self-care (01) ==
LOC: ED 15:42
DX: J10.1 Influenza due to other identified influenza virus with other respiratory manifestations (principal); R11.2 Nausea with vomiting, unspecified; R10.817 Generalized abdominal tenderness; R06.2 Wheezing; R73.03 Prediabetes; G47.30 Sleep apnea, unspecified; Z88.1 Allergy status to other antibiotic agents; Z88.5 Allergy status to narcotic agent; Z91.048 Other nonmedicinal substance allergy status
CPT/HCPCS: 96372; 99282; A9270-GY; J1885

== ENCOUNTER 2019-11-09 16:02 | Emergency (ER) | payer OTHER ==
[2019-11-09] MEDS ORDERED: NS 0.9% 1000 ML** 1,000 ML IV.FLUID IV ONE (17:29)
[2019-11-09] MEDS ORDERED: NS 0.9% 1000 ML** 1,000 ML IV ONE (17:30)
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
[2019-11-09] MEDS ORDERED: HYDROmorphone INJ* 0.5 MG/0.5 ML SYRINGE IV ONE (17:31)
[2019-11-09 17:52] LABS: ABS Basophils 0.1 10^3/ul (0-0.2); ABS Eosinophils 0.1 10^3/ul (0-0.6); ABS Lymphocytes 1.9 10^3/ul (1.0-4.8); ABS Monocytes 1.1 10^3/ul (0-0.8); ABS Neutrophils 7.5 10^3/ul (1.5-7.7); Eosinophil % 1.2 %; Hematocrit 45 % (42-52); Hemoglobin 15.6 g/dL (14.0-18.0); Lymphocyte % 18.1 %; Mean Corpuscular HGB Conc 35 g/dL (31-36); Mean Corpuscular Hemoglobin 30 pg (27-31); Mean Corpuscular Volume 87 fL (80-94); Mean Platelet Volume 9.8 fL (7.4-10.4); Nucleated Red Blood Cells % 0.1; Platelet Count 229 10^3/uL (150-450); Red Blood Count 5.19 10^6 /uL (4.18-5.48); Red Cell Distribution Width 14 % (10-15); White Blood Count 10.7 10^3/uL (3.5-10.8)
[2019-11-09 18:08] LABS: Albumin 4.1 g/dL (3.2-5.2); Albumin/Globulin Ratio 1.5 (1-3); BUN/Creatinine Ratio 15.6 (8-20); C Reactive Protein 4.59 mg/L (<8.01); Calcium 9.1 mg/dL (8.6-10.3); EGFR African American 108.5 (>60); EGFR Non-African American 89.7 (>60); Globulin 2.8 g/dL (2-4); Potassium 4.3 mmol/L (3.5-5.0); Total Bilirubin 0.5 mg/dL (0.2-1.0); Total Protein 6.9 g/dL (6.4-8.9)
[2019-11-09] MEDS ORDERED: Iodixanol* (CONTRAST) 320 MG/ML 100 ML SDV IV ONE (18:16)
[2019-11-09 18:35] LABS: Urine Appearance Clear; Urine Bilirubin Negative (Negative); Urine Blood 2+ (Negative); Urine Color Yellow; Urine Glucose Negative (Negative); Urine Ketones Negative (Negative); Urine Nitrite Negative (Negative); Urine Protein Negative (Negative); Urine Urobilinogen Negative (Negative)
[2019-11-09 18:37] LABS: Urine Bacteria Absent (Absent); Urine Red Blood Cell 2+(6-10/hpf) (Absent); Urine White Blood Cell Trace(0-5/hpf) (Absent)
[2019-11-09] MEDS ORDERED: Ketorolac INJ* 30 MG/ML 1 ML VIAL IV ONE (19:59)
[2019-11-09] MEDS ORDERED: HYDROcodone/ACETAMIN 5-325 MG* 1 TAB PO ONE (20:00)
[2019-11-09 20:34] VITALS: BP 153/96
== END 2019-11-09 20:33 | disposition home or self-care (01) ==
LOC: ED 16:02
DX: N20.0 Calculus of kidney (principal); K21.9 Gastro-esophageal reflux disease without esophagitis; F41.9 Anxiety disorder, unspecified; F32.9 Major depressive disorder, single episode, unspecified; Z90.49 Acquired absence of other specified parts of digestive tract; Z88.1 Allergy status to other antibiotic agents; Z88.5 Allergy status to narcotic agent
CPT/HCPCS: 36415; 74177; 80053; 81003; 81015; 83605; 85025; 86140; 87086; 96361; 96374; 96375; 99283; J1170; J1885; Q9967